=== PATIENT | male | born 1955 | race Caucasian/White ===

== ENCOUNTER 2018-04-13 18:06 | Inpatient (IN) | payer MEDICAID ==
[~2018-04-13] VITALS: Ht 165.1 cm; Wt 90.5 kg
[~2018-04-13 18:06] MED LIST: AMLO5TAB16 PO; FOLI1TAB16 PO; LEVO50TA8 PO; METO25TA6 PO; OMEP20TA23 PO; ONDA4TAB59 PO; THI100T PO
[2018-04-13] MEDS ORDERED: pantoprazole IV 80 MG in normal saline 100ml IV soln 100 ML IV ONE (18:30)
[2018-04-13] MEDS ORDERED: ondansetron/PF 4mg/2ml inj IV ONE (18:30)
[2018-04-13] MEDS ORDERED: normal saline 1000ML IV soln IV ONE (18:30)
[2018-04-13] MEDS ORDERED: pantoprazole 40 MG vial IV ONE (18:35)
[2018-04-13 18:55] LABS: BASOPHILS % (AUTO) 0.3 % (0-1); EOSINOPHILS # (AUTO) 0.2 X10'3 (0-0.9); EOSINOPHILS % (AUTO) 1.9 % (0-6); HEMATOCRIT 22.3 % (42.0-52.0); HEMOGLOBIN 7.8 g/dl (14.0-17.9); LYMPHOCYTES # (AUTO) 3.4 X10'3 (1.1-4.8); LYMPHOCYTES % (AUTO) 33.3 % (21-51); MEAN CORPUSCULAR HGB CONC 34.8 % (33.0-36.5); MEAN CORPUSCULAR VOLUME 100.6 FL (78-98); MEAN PLATELET VOLUME 6.1 FL (7.4-10.4); MONOCYTES # (AUTO) 0.3 X10'3 (0-0.9); MONOCYTES % (AUTO) 3.2 % (2-12); NEUTROPHILS # (AUTO) 6.2 X10'3 (1.8-7.7); NEUTROPHILS % (AUTO) 61.3 % (42-75); PLATELET COUNT 274 X10'3 (140-440); RED BLOOD COUNT 2.22 X10'6 (4.70-6.10); RED CELL DISTRIBUTION WIDTH 15.1 % (11.5-14.5); WHITE BLOOD COUNT 10.2 X10'3 (4.5-11.0)
[2018-04-13 19:05] LABS: INR 1.3 INR; PARTIAL THROMBOPLASTIN TIME 23 SECONDS (22-32); PROTHROMBIN TIME 12.9 SECONDS (9.0-12.0)
[2018-04-13 19:09] LABS: ALANINE AMINOTRANSFERASE 47 U/L (12-78); ALBUMIN 3.8 G/DL (3.4-5.0); ALBUMIN/GLOBULIN RATIO 0.8 (1.1-1.5); ALKALINE PHOSPHATASE 92 IU/L (46-116); ANION GAP 14 (8-16); ASPARTATE AMINO TRANSFERASE 155 U/L (10-37); BILIRUBIN,TOTAL 0.5 MG/DL (0.1-1.0); BLOOD UREA NITROGEN 63 MG/DL (7-18); BUN/CREATININE RATIO 19.2 (5.4-32.0); CALCIUM 9.1 MG/DL (8.5-10.1); CHLORIDE 88 MMOL/L (99-107); CREATININE 3.28 MG/DL (0.60-1.10); GLUCOSE 101 MG/DL (70-104); LIPASE 514 U/L (73-393); POTASSIUM 3.1 MMOL/L (3.5-5.1); SODIUM 128 MMOL/L (135-145); TOTAL CARBON DIOXIDE 26.5 MMOL/L (24-32); TOTAL PROTEIN 8.3 G/DL (6.4-8.2); eGFR 19 ML/MIN
[2018-04-13] MEDS ORDERED: normal saline 1000ML IV soln IVB ONE (19:55)
[2018-04-13 20:15] LABS: ETHANOL < 0.010 GM/DL (0.0-0.010)
[2018-04-13] MEDS ORDERED: magnesium hydroxide 30ml (MOM) UD suspension PO PRN (20:20)
[2018-04-13] MEDS ORDERED: morphine 4 MG/ML inj SYRINge IV PRN ×2 (20:20)
[2018-04-13] MEDS ORDERED: ondansetron/PF 4mg/2ml inj IV PRN (20:20)
[2018-04-13] MEDS ORDERED: mag hydrox/Alum hydrox/simeth 30ml oral suspension PO PRN (20:20)
[2018-04-13] MEDS ORDERED: acetaminophen 325mg tablet PO PRN ×2 (20:20)
[2018-04-13 20:28] LABS: MAGNESIUM 1.6 MG/DL (1.5-2.4)
[2018-04-13] MEDS: potassium 10mEq/100ml NS w/LIDOcaine (10mg/bag) IV SCH ×2 (20:33→20:55)
[2018-04-13] MEDS ORDERED: thiamine inj. 100 MG in normal saline 100ml IV soln 100 ML IV ONE (20:35)
[2018-04-13] MEDS ORDERED: potassium Cl 20 mEq SR tablet PO PRN ×2 (20:35)
[2018-04-13] MEDS ORDERED: LORazepam 1 MG tablet PO PRN (20:35)
[2018-04-13] MEDS ORDERED: LORazepam 2 mg/ml vial IV PRN (20:35)
[2018-04-13] MEDS ORDERED: potassium Cl 40MEQ/NS 500ml 500 ML IV PRN ×2 (20:35)
[2018-04-13 22:06] VITALS: BP 111/73
[2018-04-13 22:30] VITALS: BP 112/73
[2018-04-13 23:30] VITALS: BP 120/81
[2018-04-14] VITALS (29 sets, daily range): BP systolic 81–125; BP diastolic 50–81
[2018-04-14] MEDS: normal saline 1000ml 1,000 ML IV SCH ×4 (00:13→18:06)
[2018-04-14 02:26] LABS: BASOPHILS # (AUTO) 0.1 X10'3 (0-0.2); BASOPHILS % (AUTO) 0.7 % (0-1); EOSINOPHILS # (AUTO) 0.2 X10'3 (0-0.9); EOSINOPHILS % (AUTO) 2.1 % (0-6); LYMPHOCYTES # (AUTO) 2.6 X10'3 (1.1-4.8); LYMPHOCYTES % (AUTO) 28.8 % (21-51); MEAN CORPUSCULAR HEMOGLOBIN 33.3 PG (27.0-31.0); MEAN CORPUSCULAR HGB CONC 33.9 % (33.0-36.5); MEAN CORPUSCULAR VOLUME 98.3 FL (78-98); MEAN PLATELET VOLUME 6.3 FL (7.4-10.4); MONOCYTES # (AUTO) 0.4 X10'3 (0-0.9); NEUTROPHILS # (AUTO) 5.7 X10'3 (1.8-7.7); NEUTROPHILS % (AUTO) 64.4 % (42-75); PLATELET COUNT 202 X10'3 (140-440); RED BLOOD COUNT 2.12 X10'6 (4.70-6.10); RED CELL DISTRIBUTION WIDTH 16.2 % (11.5-14.5); WHITE BLOOD COUNT 8.9 X10'3 (4.5-11.0)
[2018-04-14 02:39] LABS: HEMATOCRIT 20.8 % (42.0-52.0)
[2018-04-14 02:40] LABS: ALBUMIN 3.2 G/DL (3.4-5.0); ANION GAP 11 (8-16); BLOOD UREA NITROGEN 68 MG/DL (7-18); BUN/CREATININE RATIO 25.6 (5.4-32.0); CALCIUM 7.7 MG/DL (8.5-10.1); CHLORIDE 96 MMOL/L (99-107); CREATININE 2.66 MG/DL (0.60-1.10); GLUCOSE 81 MG/DL (70-104); LIPASE 401 U/L (73-393); MAGNESIUM 1.3 MG/DL (1.5-2.4); PHOSPHORUS 3.2 MG/DL (2.3-4.5); POTASSIUM 3.7 MMOL/L (3.5-5.1); SODIUM 131 MMOL/L (135-145); TOTAL CARBON DIOXIDE 23.9 MMOL/L (24-32); eGFR 25 ML/MIN
[2018-04-14 08:11] LABS: HEMOGLOBIN 7.4 g/dl (14.0-17.9); MEAN CORPUSCULAR HEMOGLOBIN 33.8 PG (27.0-31.0); MEAN CORPUSCULAR HGB CONC 34.6 % (33.0-36.5); MEAN CORPUSCULAR VOLUME 97.7 FL (78-98); MEAN PLATELET VOLUME 6.6 FL (7.4-10.4); PLATELET COUNT 179 X10'3 (140-440); RED BLOOD COUNT 2.18 X10'6 (4.70-6.10); RED CELL DISTRIBUTION WIDTH 16.1 % (11.5-14.5)
[2018-04-14 08:15] LABS: HEMATOCRIT 21.3 % (42.0-52.0)
[2018-04-14] MEDS ORDERED: pantoprazole 40 MG vial IV SCH (09:30)
[2018-04-14] MEDS: folic acid 1mg tablet PO SCH (10:02)
[2018-04-14] MEDS: multivitamins, therapeutics tablet PO SCH (10:02)
[2018-04-14] MEDS: thiamine 100mg tablet PO SCH (10:02)
[2018-04-14 10:38] LABS: CLARITY,URINE CLEAR (Clear); COLOR,URINE YELLOW (Yellow); GLUCOSE, URINE NEGATIVE (Neg); KETONES,URINE NEGATIVE (Neg); LEUKOCYTE ESTERASE ,URINE NEGATIVE (Neg); NITRITES, URINE NEGATIVE (Neg); OCCULT BLOOD,URINE SMALL (Neg); PROTEIN,URINE NEGATIVE (Neg); UA COLLECTION TYPE NON-SPECIFIED; UROBILINOGEN,URINE 0.2 E.U/dL (0.2-1.0)
[2018-04-14 10:46] LABS: WBC,URINE 0-4 /HPF (0-4)
[2018-04-14 10:48] LABS: BACTERIA,URINE NONE SEEN /HPF (Neg); RBC,URINE NONE SEEN /HPF (0-2); SQUAMOUS EPITHELIAL CELL,UR NONE SEEN /LPF (FEW)
[2018-04-14] MEDS: levoTHYROXINE sod inj. 100mcg/5 ml vial IV SCH (10:50)
[2018-04-14 10:54] LABS: OCCULT BLOOD STOOL POSITIVE (Neg)
[2018-04-14 13:27] LABS: MEAN CORPUSCULAR HEMOGLOBIN 33.3 PG (27.0-31.0); MEAN CORPUSCULAR HGB CONC 34.6 % (33.0-36.5); MEAN CORPUSCULAR VOLUME 96.2 FL (78-98); MEAN PLATELET VOLUME 6.3 FL (7.4-10.4); PLATELET COUNT 171 X10'3 (140-440); RED BLOOD COUNT 1.93 X10'6 (4.70-6.10); RED CELL DISTRIBUTION WIDTH 16.4 % (11.5-14.5); WHITE BLOOD COUNT 7.2 X10'3 (4.5-11.0)
[2018-04-14 13:32] LABS: HEMATOCRIT 18.6 % (42.0-52.0); HEMOGLOBIN 6.4 g/dl (14.0-17.9)
[2018-04-14] MEDS ORDERED: MIDAZolam 5mg/5ml vial ONE (14:24)
[2018-04-14] MEDS ORDERED: LIDOcaine Viscous 15ml cup ONE (14:24)
[2018-04-14] MEDS ORDERED: fentaNYL/PF 50MCG/1 ML 2ML syringe ONE (14:24)
[2018-04-14 19:26] LABS: HEMATOCRIT 22.7 % (42.0-52.0); HEMOGLOBIN 7.7 g/dl (14.0-17.9); MEAN CORPUSCULAR HEMOGLOBIN 32.5 PG (27.0-31.0); MEAN CORPUSCULAR HGB CONC 33.9 % (33.0-36.5); MEAN CORPUSCULAR VOLUME 95.8 FL (78-98); MEAN PLATELET VOLUME 6.4 FL (7.4-10.4); PLATELET COUNT 155 X10'3 (140-440); RED BLOOD COUNT 2.37 X10'6 (4.70-6.10); RED CELL DISTRIBUTION WIDTH 17.8 % (11.5-14.5); WHITE BLOOD COUNT 8.9 X10'3 (4.5-11.0)
[2018-04-14] MEDS: pantoprazole 40 MG vial IV SCH (22:22)
[2018-04-15 03:00] VITALS: BP 108/72
[2018-04-15 03:29] LABS: BASOPHILS % (AUTO) 0.4 % (0-1); EOSINOPHILS # (AUTO) 0.3 X10'3 (0-0.9); EOSINOPHILS % (AUTO) 3.8 % (0-6); HEMATOCRIT 23.3 % (42.0-52.0); HEMOGLOBIN 8.1 g/dl (14.0-17.9); LYMPHOCYTES # (AUTO) 2.3 X10'3 (1.1-4.8); LYMPHOCYTES % (AUTO) 32.3 % (21-51); MEAN CORPUSCULAR HEMOGLOBIN 33.3 PG (27.0-31.0); MEAN CORPUSCULAR HGB CONC 34.9 % (33.0-36.5); MEAN CORPUSCULAR VOLUME 95.4 FL (78-98); MEAN PLATELET VOLUME 6.1 FL (7.4-10.4); MONOCYTES # (AUTO) 0.2 X10'3 (0-0.9); MONOCYTES % (AUTO) 3.2 % (2-12); NEUTROPHILS # (AUTO) 4.3 X10'3 (1.8-7.7); NEUTROPHILS % (AUTO) 60.3 % (42-75); PLATELET COUNT 153 X10'3 (140-440); RED BLOOD COUNT 2.44 X10'6 (4.70-6.10); RED CELL DISTRIBUTION WIDTH 17.7 % (11.5-14.5); WHITE BLOOD COUNT 7.2 X10'3 (4.5-11.0)
[2018-04-15 03:41] LABS: ALBUMIN 2.9 G/DL (3.4-5.0); ANION GAP 8 (8-16); BLOOD UREA NITROGEN 59 MG/DL (7-18); BUN/CREATININE RATIO 29.2 (5.4-32.0); CALCIUM 7.7 MG/DL (8.5-10.1); CHLORIDE 103 MMOL/L (99-107); CREATININE 2.02 MG/DL (0.60-1.10); GLUCOSE 92 MG/DL (70-104); LIPASE 575 U/L (73-393); MAGNESIUM 1.3 MG/DL (1.5-2.4); PHOSPHORUS 2.5 MG/DL (2.3-4.5); POTASSIUM 3.4 MMOL/L (3.5-5.1); SODIUM 134 MMOL/L (135-145); TOTAL CARBON DIOXIDE 22.8 MMOL/L (24-32); eGFR 34 ML/MIN
[2018-04-15] MEDS: normal saline 1000ml 1,000 ML IV SCH ×3 (04:17→20:17)
[2018-04-15 06:00] VITALS: BP 114/78
[2018-04-15] MEDS: pantoprazole 40 MG vial IV SCH ×2 (08:29→19:58)
[2018-04-15] MEDS: thiamine 100mg tablet PO SCH (08:30)
[2018-04-15] MEDS: levoTHYROXINE sod inj. 100mcg/5 ml vial IV SCH (08:30)
[2018-04-15] MEDS: folic acid 1mg tablet PO SCH (08:31)
[2018-04-15] MEDS: multivitamins, therapeutics tablet PO SCH (08:31)
[2018-04-15 08:32] LABS: HEMATOCRIT 24.4 % (42.0-52.0); HEMOGLOBIN 8.5 g/dl (14.0-17.9); MEAN CORPUSCULAR HEMOGLOBIN 33.3 PG (27.0-31.0); MEAN CORPUSCULAR HGB CONC 34.7 % (33.0-36.5); MEAN CORPUSCULAR VOLUME 95.9 FL (78-98); MEAN PLATELET VOLUME 6.5 FL (7.4-10.4); PLATELET COUNT 162 X10'3 (140-440); RED BLOOD COUNT 2.54 X10'6 (4.70-6.10); RED CELL DISTRIBUTION WIDTH 17.3 % (11.5-14.5); WHITE BLOOD COUNT 7.2 X10'3 (4.5-11.0)
[2018-04-15] MEDS ORDERED: magnesium 4gm in 100ml NS 100 ML IV ONE (10:00)
[2018-04-15 11:00] VITALS: BP 108/78
[2018-04-15 13:32] LABS: HEMATOCRIT 23.4 % (42.0-52.0); HEMOGLOBIN 8.1 g/dl (14.0-17.9); MEAN CORPUSCULAR HEMOGLOBIN 33.1 PG (27.0-31.0); MEAN CORPUSCULAR HGB CONC 34.7 % (33.0-36.5); MEAN CORPUSCULAR VOLUME 95.3 FL (78-98); MEAN PLATELET VOLUME 6.2 FL (7.4-10.4); PLATELET COUNT 160 X10'3 (140-440); RED BLOOD COUNT 2.46 X10'6 (4.70-6.10); RED CELL DISTRIBUTION WIDTH 17.4 % (11.5-14.5); WHITE BLOOD COUNT 7.5 X10'3 (4.5-11.0)
[2018-04-15 15:00] VITALS: BP 137/86
[2018-04-15 19:00] VITALS: BP 121/85
[2018-04-15 19:47] LABS: HEMATOCRIT 22.8 % (42.0-52.0); HEMOGLOBIN 7.8 g/dl (14.0-17.9); MEAN CORPUSCULAR HEMOGLOBIN 33.2 PG (27.0-31.0); MEAN CORPUSCULAR HGB CONC 34.3 % (33.0-36.5); MEAN CORPUSCULAR VOLUME 96.8 FL (78-98); MEAN PLATELET VOLUME 6.3 FL (7.4-10.4); PLATELET COUNT 155 X10'3 (140-440); RED BLOOD COUNT 2.35 X10'6 (4.70-6.10); RED CELL DISTRIBUTION WIDTH 17.2 % (11.5-14.5); WHITE BLOOD COUNT 6.9 X10'3 (4.5-11.0)
[2018-04-15] MEDS ORDERED: pantoprazole 40mg Tablet.DR PO SCH (20:00)
[2018-04-15 23:00] VITALS: BP 118/80
[2018-04-16] MEDS: normal saline 1000ml 1,000 ML IV SCH ×3 (01:14→20:17)
[2018-04-16 03:00] VITALS: BP 121/82
[2018-04-16 06:00] VITALS: BP 126/89
[2018-04-16] MEDS: folic acid 1mg tablet PO SCH (07:37)
[2018-04-16] MEDS: multivitamins, therapeutics tablet PO SCH (07:37)
[2018-04-16] MEDS: thiamine 100mg tablet PO SCH (07:37)
[2018-04-16] MEDS: pantoprazole 40 MG vial IV SCH ×2 (07:38→20:51)
[2018-04-16] MEDS: levoTHYROXINE sod inj. 100mcg/5 ml vial IV SCH (07:40)
[2018-04-16] MEDS ORDERED: phytonadione inj. 10 MG in normal saline 100ml IV soln 99 ML IV ONE (08:45)
[2018-04-16 10:54] LABS: HEMATOCRIT 23.8 % (42.0-52.0); HEMOGLOBIN 8.2 g/dl (14.0-17.9); MEAN CORPUSCULAR HEMOGLOBIN 33.2 PG (27.0-31.0); MEAN CORPUSCULAR HGB CONC 34.5 % (33.0-36.5); MEAN CORPUSCULAR VOLUME 96.1 FL (78-98); PLATELET COUNT 170 X10'3 (140-440); RED BLOOD COUNT 2.47 X10'6 (4.70-6.10); RED CELL DISTRIBUTION WIDTH 17.5 % (11.5-14.5); WHITE BLOOD COUNT 6.5 X10'3 (4.5-11.0)
[2018-04-16 11:00] VITALS: BP 136/95
[2018-04-16 11:07] LABS: ANION GAP 6 (8-16); BLOOD UREA NITROGEN 26 MG/DL (7-18); BUN/CREATININE RATIO 15.9 (5.4-32.0); CALCIUM 7.6 MG/DL (8.5-10.1); CHLORIDE 102 MMOL/L (99-107); CREATININE 1.64 MG/DL (0.60-1.10); GLUCOSE 84 MG/DL (70-104); LIPASE 539 U/L (73-393); MAGNESIUM 1.7 MG/DL (1.5-2.4); PHOSPHORUS 1.9 MG/DL (2.3-4.5); POTASSIUM 3.4 MMOL/L (3.5-5.1); SODIUM 132 MMOL/L (135-145); TOTAL CARBON DIOXIDE 23.6 MMOL/L (24-32); eGFR 43 ML/MIN
[2018-04-16] MEDS ORDERED: LIDOcaine 1% 30ml vial 5 ML in potassium Cl 40MEQ/NS 500ml 500 ML IV ONE (14:05)
[2018-04-16 15:00] VITALS: BP 144/96
[2018-04-16] MEDS: ceFAZolin 1GM/D5W- ADD-VANTAGE 50 ML IV SCH ×2 (15:10→23:28)
[2018-04-16 19:00] VITALS: BP 132/87
[2018-04-16 20:20] LABS: HEMATOCRIT 24.1 % (42.0-52.0); HEMOGLOBIN 8.3 g/dl (14.0-17.9); MEAN CORPUSCULAR HEMOGLOBIN 33.5 PG (27.0-31.0); MEAN CORPUSCULAR HGB CONC 34.4 % (33.0-36.5); MEAN CORPUSCULAR VOLUME 97.3 FL (78-98); MEAN PLATELET VOLUME 6.2 FL (7.4-10.4); PLATELET COUNT 176 X10'3 (140-440); RED BLOOD COUNT 2.47 X10'6 (4.70-6.10); RED CELL DISTRIBUTION WIDTH 17.3 % (11.5-14.5); WHITE BLOOD COUNT 6.9 X10'3 (4.5-11.0)
[2018-04-16] MEDS: clotrimazole topical cream 15gm tube TP SCH (20:59)
[2018-04-16 23:00] VITALS: BP 126/86
[2018-04-17 03:00] VITALS: BP 116/80
[2018-04-17] MEDS: normal saline 1000ml 1,000 ML IV SCH ×3 (03:08→20:17)
[2018-04-17 06:40] LABS: BASOPHILS # (AUTO) 0.1 X10'3 (0-0.2); BASOPHILS % (AUTO) 1.6 % (0-1); EOSINOPHILS # (AUTO) 0.3 X10'3 (0-0.9); EOSINOPHILS % (AUTO) 5.1 % (0-6); HEMATOCRIT 25.4 % (42.0-52.0); HEMOGLOBIN 8.7 g/dl (14.0-17.9); LYMPHOCYTES # (AUTO) 1.8 X10'3 (1.1-4.8); LYMPHOCYTES % (AUTO) 30.6 % (21-51); MEAN CORPUSCULAR HEMOGLOBIN 33.2 PG (27.0-31.0); MEAN CORPUSCULAR HGB CONC 34.3 % (33.0-36.5); MEAN CORPUSCULAR VOLUME 96.9 FL (78-98); MEAN PLATELET VOLUME 6.3 FL (7.4-10.4); MONOCYTES # (AUTO) 0.2 X10'3 (0-0.9); MONOCYTES % (AUTO) 4.2 % (2-12); NEUTROPHILS # (AUTO) 3.4 X10'3 (1.8-7.7); NEUTROPHILS % (AUTO) 58.5 % (42-75); PLATELET COUNT 182 X10'3 (140-440); RED BLOOD COUNT 2.62 X10'6 (4.70-6.10); RED CELL DISTRIBUTION WIDTH 17.3 % (11.5-14.5); WHITE BLOOD COUNT 5.7 X10'3 (4.5-11.0)
[2018-04-17 07:00] VITALS: BP 135/86
[2018-04-17 07:03] LABS: ANION GAP 8 (8-16); BLOOD UREA NITROGEN 14 MG/DL (7-18); BUN/CREATININE RATIO 9.8 (5.4-32.0); CHLORIDE 100 MMOL/L (99-107); CREATININE 1.43 MG/DL (0.60-1.10); GLUCOSE 84 MG/DL (70-104); POTASSIUM 3.7 MMOL/L (3.5-5.1); SODIUM 130 MMOL/L (135-145); TOTAL CARBON DIOXIDE 21.9 MMOL/L (24-32)
[2018-04-17 07:04] LABS: ALBUMIN 2.8 G/DL (3.4-5.0); CALCIUM 7.5 MG/DL (8.5-10.1); LIPASE 382 U/L (73-393); MAGNESIUM 1.3 MG/DL (1.5-2.4); PHOSPHORUS 2.3 MG/DL (2.3-4.5); eGFR 50 ML/MIN
[2018-04-17] MEDS: ceFAZolin 1GM/D5W- ADD-VANTAGE 50 ML IV SCH ×3 (07:29→23:49)
[2018-04-17] MEDS: folic acid 1mg tablet PO SCH (07:29)
[2018-04-17] MEDS: pantoprazole 40 MG vial IV SCH (07:29)
[2018-04-17] MEDS: multivitamins, therapeutics tablet PO SCH (07:29)
[2018-04-17] MEDS: thiamine 100mg tablet PO SCH (07:29)
[2018-04-17] MEDS: clotrimazole topical cream 15gm tube TP SCH ×2 (07:39→23:50)
[2018-04-17] MEDS: levoTHYROXINE sod inj. 100mcg/5 ml vial IV SCH (10:55)
[2018-04-17 12:00] VITALS: BP 136/90
[2018-04-17] MEDS ORDERED: magnesium 4gm in 100ml NS 100 ML IV ONE (12:55)
[2018-04-17 16:00] VITALS: BP 140/87
[2018-04-17 19:00] VITALS: BP 135/90
[2018-04-17 23:00] VITALS: BP 141/94
[2018-04-18] MEDS: normal saline 1000ml 1,000 ML IV SCH (00:20)
[2018-04-18 03:00] VITALS: BP 146/96
[2018-04-18 05:54] LABS: BASOPHILS % (AUTO) 0.7 % (0-1); EOSINOPHILS # (AUTO) 0.3 X10'3 (0-0.9); EOSINOPHILS % (AUTO) 5.7 % (0-6); HEMATOCRIT 24.1 % (42.0-52.0); HEMOGLOBIN 8.4 g/dl (14.0-17.9); LYMPHOCYTES # (AUTO) 1.1 X10'3 (1.1-4.8); LYMPHOCYTES % (AUTO) 24.9 % (21-51); MEAN CORPUSCULAR HEMOGLOBIN 33.5 PG (27.0-31.0); MEAN CORPUSCULAR HGB CONC 34.7 % (33.0-36.5); MEAN CORPUSCULAR VOLUME 96.5 FL (78-98); MEAN PLATELET VOLUME 5.8 FL (7.4-10.4); MONOCYTES # (AUTO) 0.3 X10'3 (0-0.9); MONOCYTES % (AUTO) 5.8 % (2-12); NEUTROPHILS # (AUTO) 2.9 X10'3 (1.8-7.7); NEUTROPHILS % (AUTO) 62.9 % (42-75); PLATELET COUNT 210 X10'3 (140-440); RED CELL DISTRIBUTION WIDTH 16.8 % (11.5-14.5); WHITE BLOOD COUNT 4.6 X10'3 (4.5-11.0)
[2018-04-18 06:43] LABS: ALBUMIN 2.8 G/DL (3.4-5.0); ANION GAP 9 (8-16); BLOOD UREA NITROGEN 7 MG/DL (7-18); BUN/CREATININE RATIO 5.3 (5.4-32.0); CALCIUM 7.7 MG/DL (8.5-10.1); CHLORIDE 99 MMOL/L (99-107); CREATININE 1.32 MG/DL (0.60-1.10); GLUCOSE 92 MG/DL (70-104); LIPASE 314 U/L (73-393); MAGNESIUM 1.7 MG/DL (1.5-2.4); PHOSPHORUS 2.3 MG/DL (2.3-4.5); POTASSIUM 3.5 MMOL/L (3.5-5.1); SODIUM 130 MMOL/L (135-145); TOTAL CARBON DIOXIDE 22.3 MMOL/L (24-32); eGFR 55 ML/MIN
[2018-04-18 07:00] VITALS: BP 139/101
[2018-04-18] MEDS: levoTHYROXINE sod inj. 100mcg/5 ml vial IV SCH (07:15)
[2018-04-18] MEDS: folic acid 1mg tablet PO SCH (07:15)
[2018-04-18] MEDS: thiamine 100mg tablet PO SCH (07:15)
[2018-04-18] MEDS: ceFAZolin 1GM/D5W- ADD-VANTAGE 50 ML IV SCH (07:15)
[2018-04-18] MEDS: multivitamins, therapeutics tablet PO SCH (07:15)
[2018-04-18] MEDS: clotrimazole topical cream 15gm tube TP SCH (08:00)
[2018-04-18] MEDS ORDERED: CEPH250T PO (09:31)
[2018-04-18] MEDS ORDERED: PANT-47 PO (09:31)
[2018-04-18] MEDS ORDERED: CLOT30CR TP (09:31)
[2018-04-18 11:00] VITALS: BP 149/93
[2018-04-18 15:00] VITALS: BP 119/78
== END 2018-04-18 15:20 | disposition home or self-care (01) | DRG 282 ==
LOC: ER 18:07 → ED HOLD 20:17 → EDBEDREQ 20:27 → PCU 3S 20:56
PROVIDERS: ADMIT Internal Medicine; ATTEND Internal Medicine
PROC: 30233N1 Transfusion of Nonautologous Red Blood Cells into Peripheral Vein, Percutaneous Approach (ICD-10-PCS; 2018-04-13)
PROC: 0DJ08ZZ Inspection of Upper Intestinal Tract, Via Natural or Artificial Opening Endoscopic (ICD-10-PCS; principal; 2018-04-14)
PROC: 30233N1 Transfusion of Nonautologous Red Blood Cells into Peripheral Vein, Percutaneous Approach (ICD-10-PCS; 2018-04-14)
DX: K85.90 Acute pancreatitis without necrosis or infection, unspecified (principal); N17.9 Acute kidney failure, unspecified; K22.6 Gastro-esophageal laceration-hemorrhage syndrome; I95.89 Other hypotension; K21.0 Gastro-esophageal reflux disease with esophagitis; N18.9 Chronic kidney disease, unspecified; F10.10 Alcohol abuse, uncomplicated; E86.0 Dehydration; B18.2 Chronic viral hepatitis C; D64.9 Anemia, unspecified; E87.6 Hypokalemia; E03.9 Hypothyroidism, unspecified; F17.210 Nicotine dependence, cigarettes, uncomplicated; I12.9 Hypertensive chronic kidney disease with stage 1 through stage 4 chronic kidney disease, or unspecified chronic kidney disease; K29.80 Duodenitis without bleeding; Z59.0 Homelessness; Z91.19 Patient's noncompliance with other medical treatment and regimen; Z79.899 Other long term (current) drug therapy; Z88.2 Allergy status to sulfonamides; Z82.3 Family history of stroke; Z82.49 Family history of ischemic heart disease and other diseases of the circulatory system
CPT/HCPCS: 36415; 71045; 80048; 80053; 80320; 81001; 82272; 83690; 83735; 84100; 84439; 84443; 84484; 85025; 85027; 85610; 85730; 86885; 86900; 86901; 86920; 87070; 93005; 96361; 96374; 96375; 97162; 99285; A4620; A4649; A6209; A6212; A6250; A6255; A6446; A6449; A9270; C9113; G0500; J0690; J2250; J2270; J2405; J3010; J3411; J3430; J3475; J3480; J3490; J7030; P9016

== ENCOUNTER 2018-10-03 16:54 | Inpatient (IN) | payer MEDICAID ==
[~2018-10-03] VITALS: Ht 167.6 cm; Wt 77.2 kg
[~2018-10-03 16:54] MED LIST changes: +CEPH250T PO; +CLOT30CR TP; -OMEP20TA23 PO; +PANT-47 PO
[2018-10-03 18:29] LABS: BASOPHILS # (AUTO) 0.2 X10'3 (0-0.2); BASOPHILS % (AUTO) 1.2 % (0-1); EOSINOPHILS # (AUTO) 0.2 X10'3 (0-0.9); EOSINOPHILS % (AUTO) 1.5 % (0-6); HEMATOCRIT 34.9 % (42.0-52.0); HEMOGLOBIN 11.9 g/dl (14.0-17.9); LYMPHOCYTES # (AUTO) 2.5 X10'3 (1.1-4.8); LYMPHOCYTES % (AUTO) 16.4 % (21-51); MEAN CORPUSCULAR HEMOGLOBIN 34.4 PG (27.0-31.0); MEAN CORPUSCULAR HGB CONC 34.1 % (33.0-36.5); MEAN CORPUSCULAR VOLUME 100.9 FL (78-98); MEAN PLATELET VOLUME 6.4 FL (7.4-10.4); MONOCYTES # (AUTO) 0.5 X10'3 (0-0.9); NEUTROPHILS # (AUTO) 11.9 X10'3 (1.8-7.7); NEUTROPHILS % (AUTO) 77.9 % (42-75); PLATELET COUNT 254 X10'3 (140-440); RED BLOOD COUNT 3.46 X10'6 (4.70-6.10); WHITE BLOOD COUNT 15.3 X10'3 (4.5-11.0)
[2018-10-03 18:54] LABS: ALANINE AMINOTRANSFERASE 35 U/L (12-78); ALBUMIN 4.1 G/DL (3.4-5.0); ALKALINE PHOSPHATASE 94 IU/L (46-116); ANION GAP 16 (8-16); ASPARTATE AMINO TRANSFERASE 68 U/L (10-37); BILIRUBIN,TOTAL 0.3 MG/DL (0.1-1.0); BLOOD UREA NITROGEN 27 MG/DL (7-18); BUN/CREATININE RATIO 16.3 (5.4-32.0); CALCIUM 8.5 MG/DL (8.5-10.1); CHLORIDE 95 MMOL/L (99-107); CREATININE 1.66 MG/DL (0.60-1.10); GLUCOSE 113 MG/DL (70-104); POTASSIUM 3.6 MMOL/L (3.5-5.1); SODIUM 132 MMOL/L (135-145); TOTAL CARBON DIOXIDE 21.1 MMOL/L (24-32); TOTAL PROTEIN 8.3 G/DL (6.4-8.2); eGFR 42 ML/MIN
[2018-10-03 19:05] LABS: INR 1.1 INR; PROTHROMBIN TIME 11.4 SECONDS (9.0-12.0)
[2018-10-03 19:12] LABS: AMYLASE 2249 U/L (25-115); LIPASE > 30000 U/L (73-393)
[2018-10-03] MEDS ORDERED: HYDROmorphone 1 mg/ml syringe IV ONE ×2 (19:30→21:20)
[2018-10-03] MEDS ORDERED: normal saline 1000ML IV soln IVB ONE (19:30)
[2018-10-03] MEDS ORDERED: LISI10TA4 PO (19:34)
[2018-10-03] MEDS ORDERED: OMEP-50 PO (19:34)
[2018-10-03] MEDS ORDERED: ondansetron/PF 4mg/2ml inj IV ONE (19:40)
[2018-10-03 19:46] LABS: ETHANOL < 0.010 GM/DL (0.0-0.010); MAGNESIUM 1.6 MG/DL (1.5-2.4)
--- NOTE | 2018-10-03 20:25 | NUR ---
US TECH AT BEDSIDE.
[2018-10-03 20:45] LABS: CLARITY,URINE CLEAR (Clear); COLOR,URINE YELLOW (Yellow); GLUCOSE, URINE NEGATIVE (Neg); KETONES,URINE NEGATIVE (Neg); LEUKOCYTE ESTERASE ,URINE NEGATIVE (Neg); NITRITES, URINE NEGATIVE (Neg); OCCULT BLOOD,URINE SMALL (Neg); PH,URINE 6.5 (4.8-8.0); PROTEIN,URINE TRACE mg/dl (Neg); UROBILINOGEN,URINE 0.2 E.U/dL (0.2-1.0)
[2018-10-03 20:49] LABS: UA COLLECTION TYPE VOIDED
[2018-10-03 20:50] LABS: BACTERIA,URINE FEW /HPF (Neg); RBC,URINE 0-2 /HPF (0-2); SQUAMOUS EPITHELIAL CELL,UR FEW /LPF (FEW); WBC,URINE 0-4 /HPF (0-4)
[2018-10-03] MEDS ORDERED: piperacillin/tazo 3.375gm/50ml 50 ML IV ONE (21:05)
[2018-10-03] MEDS ORDERED: ondansetron/PF 4mg/2ml inj IV PRN (21:35)
[2018-10-03] MEDS ORDERED: CADD PCA waste documentation MC PRN (21:35)
[2018-10-03] MEDS ORDERED: naloxone 0.4 mg/ml inj IV PRN (21:35)
[2018-10-03] MEDS: normal saline 1000ml 1,000 ML IV SCH (22:14)
[2018-10-03] MEDS: pantoprazole 40 MG vial IV SCH (22:14)
[2018-10-03] MEDS: enalaprilat dihydrate 2.5mg/2ml vial IV PRN (23:09)
--- NOTE | 2018-10-03 23:36 | NUR ---
CALLED REPORT TO RACHEL ON SURGICAL FLOOR.
[2018-10-04] VITALS (7 sets, daily range): BP systolic 129–201; BP diastolic 83–123
[2018-10-04] MEDS: normal saline 1000ml 1,000 ML IV SCH ×3 (00:06→19:56)
[2018-10-04] MEDS: HYDROmorphone/NS 1 mg/ml CADD 50 ML IV SCH ×13 (00:15→23:00)
[2018-10-04 06:08] LABS: ALANINE AMINOTRANSFERASE 32 U/L (12-78); ALBUMIN/GLOBULIN RATIO 0.9 (1.1-1.5); ALKALINE PHOSPHATASE 100 IU/L (46-116); ANION GAP 13 (8-16); ASPARTATE AMINO TRANSFERASE 52 U/L (10-37); BILIRUBIN,TOTAL 0.6 MG/DL (0.1-1.0); BLOOD UREA NITROGEN 22 MG/DL (7-18); BUN/CREATININE RATIO 15.1 (5.4-32.0); CALCIUM 8.2 MG/DL (8.5-10.1); CHLORIDE 96 MMOL/L (99-107); CREATININE 1.46 MG/DL (0.60-1.10); GLUCOSE 117 MG/DL (70-104); POTASSIUM 3.9 MMOL/L (3.5-5.1); SODIUM 133 MMOL/L (135-145); TOTAL CARBON DIOXIDE 24.4 MMOL/L (24-32); TOTAL PROTEIN 8.3 G/DL (6.4-8.2); eGFR 49 ML/MIN
[2018-10-04 06:11] LABS: BASOPHILS % (AUTO) 0.1 % (0-1); EOSINOPHILS % (AUTO) 0.2 % (0-6); HEMATOCRIT 39.2 % (42.0-52.0); LYMPHOCYTES % (AUTO) 8.3 % (21-51); MEAN CORPUSCULAR HEMOGLOBIN 33.5 PG (27.0-31.0); MEAN CORPUSCULAR HGB CONC 33.1 % (33.0-36.5); MEAN CORPUSCULAR VOLUME 101.3 FL (78-98); MEAN PLATELET VOLUME 6.5 FL (7.4-10.4); MONOCYTES # (AUTO) 0.4 X10'3 (0-0.9); MONOCYTES % (AUTO) 3.6 % (2-12); NEUTROPHILS # (AUTO) 10.2 X10'3 (1.8-7.7); NEUTROPHILS % (AUTO) 87.8 % (42-75); PLATELET COUNT 255 X10'3 (140-440); RED BLOOD COUNT 3.87 X10'6 (4.70-6.10); RED CELL DISTRIBUTION WIDTH 14.3 % (11.5-14.5); WHITE BLOOD COUNT 11.6 X10'3 (4.5-11.0)
--- NOTE | 2018-10-04 06:54 | NUR ---
Patient in room [facility]. I have received report from Eddy MEYER and had the opportunity to ask questions and assume patient care.
--- NOTE | 2018-10-04 07:02 | NUR ---
Problems reprioritized. Patient report given, questions answered & plan of care reviewed with Lizzette. Addendum: 10/04/18 at 0703 by Nicho Laurent RN Amended: Links added.
[2018-10-04] MEDS: enalaprilat dihydrate 2.5mg/2ml vial IV PRN (07:18)
[2018-10-04] MEDS: pantoprazole 40 MG vial IV SCH (07:18)
--- NOTE | 2018-10-04 07:23 | NUR ---
BP this am was reportedly high 201/123, heart rate 73. Patient complaining of lightheadedness and also abdominal pain 05/31. Instructed patient to use his Dilaudid CADD for pain management and Vasotec 2.5 mg IV given as indicated. Will reevaluate BP Addendum: 10/04/18 at 0852 by Fam Canales RN BP rechecked 186/117 post Vasotec. Pain level went down to 10. Dr. Julio notified via paging system regarding high BP
[2018-10-04] MEDS: levoTHYROXINE 175mcg tablet PO SCH (07:25)
--- NOTE | 2018-10-04 10:56 | NUR ---
Dr. Julio seen the patient. Patient verbalized to the doctor that he does not want any surgery. Also patient requesting to keep the Dilaudid CADD for pain management. Dr. Julio said to me not to worry about his BP and that we need to control his pain to control the BP
--- NOTE | 2018-10-04 18:26 | NUR ---
Problems reprioritized. Patient report given, questions answered & plan of care reviewed with Buffy MEYER.
--- NOTE | 2018-10-04 18:53 | NUR ---
Patient in room [facility]. I have received report from Fam MEYER and had the opportunity to ask questions and assume patient care.
[2018-10-04] MEDS ORDERED: enalaprilat dihydrate 2.5mg/2ml vial IV PRN (19:15)
[2018-10-05] MEDS: HYDROmorphone/NS 1 mg/ml CADD 50 ML IV SCH ×12 (01:00→23:00)
[2018-10-05] MEDS: normal saline 1000ml 1,000 ML IV SCH ×2 (05:12→15:38)
[2018-10-05 05:15] LABS: BASOPHILS % (AUTO) 0.4 % (0-1); EOSINOPHILS # (AUTO) 0.1 X10'3 (0-0.9); EOSINOPHILS % (AUTO) 0.8 % (0-6); HEMATOCRIT 33.9 % (42.0-52.0); HEMOGLOBIN 11.3 g/dl (14.0-17.9); LYMPHOCYTES # (AUTO) 1.1 X10'3 (1.1-4.8); LYMPHOCYTES % (AUTO) 8.9 % (21-51); MEAN CORPUSCULAR HEMOGLOBIN 34.1 PG (27.0-31.0); MEAN CORPUSCULAR HGB CONC 33.5 % (33.0-36.5); MEAN PLATELET VOLUME 6.4 FL (7.4-10.4); MONOCYTES # (AUTO) 0.7 X10'3 (0-0.9); MONOCYTES % (AUTO) 5.7 % (2-12); NEUTROPHILS # (AUTO) 10.2 X10'3 (1.8-7.7); NEUTROPHILS % (AUTO) 84.2 % (42-75); PLATELET COUNT 203 X10'3 (140-440); RED BLOOD COUNT 3.32 X10'6 (4.70-6.10); RED CELL DISTRIBUTION WIDTH 14.1 % (11.5-14.5); WHITE BLOOD COUNT 12.1 X10'3 (4.5-11.0)
[2018-10-05 05:47] LABS: ALANINE AMINOTRANSFERASE 27 U/L (12-78); ALBUMIN 3.4 G/DL (3.4-5.0); ALBUMIN/GLOBULIN RATIO 0.9 (1.1-1.5); ALKALINE PHOSPHATASE 80 IU/L (46-116); ANION GAP 11 (8-16); ASPARTATE AMINO TRANSFERASE 49 U/L (10-37); BILIRUBIN,TOTAL 0.8 MG/DL (0.1-1.0); BLOOD UREA NITROGEN 28 MG/DL (7-18); BUN/CREATININE RATIO 17.3 (5.4-32.0); CALCIUM 8.3 MG/DL (8.5-10.1); CHLORIDE 100 MMOL/L (99-107); CREATININE 1.62 MG/DL (0.60-1.10); GLUCOSE 80 MG/DL (70-104); POTASSIUM 4.2 MMOL/L (3.5-5.1); SODIUM 134 MMOL/L (135-145); TOTAL CARBON DIOXIDE 22.6 MMOL/L (24-32); TOTAL PROTEIN 7.4 G/DL (6.4-8.2); eGFR 44 ML/MIN
[2018-10-05 06:00] VITALS: BP 127/87
[2018-10-05 06:38] LABS: TOTAL CELLS COUNTED 100
[2018-10-05 06:39] LABS: PLATELET ESTIMATE NORMAL; TOXIC GRANULATION 1+
--- NOTE | 2018-10-05 06:49 | NUR ---
Problems reprioritized. Patient report given, questions answered & plan of care reviewed with Hanane MEYER.
--- NOTE | 2018-10-05 07:20 | NUR ---
Patient in room [facility]. I have received report from herve eisenberg and had the opportunity to ask questions and assume patient care.
[2018-10-05] MEDS: pantoprazole 40 MG vial IV SCH (08:37)
[2018-10-05] MEDS: levoTHYROXINE 175mcg tablet PO SCH (08:37)
[2018-10-05 11:00] VITALS: BP 150/88
[2018-10-05 11:43] LABS: LIPASE 3577 U/L (73-393)
--- NOTE | 2018-10-05 18:18 | NUR ---
Patient in room [facility]. I have received report from Hanane MEYER and had the opportunity to ask questions and assume patient care. Pt resting comfortably in bed watching tv. CADD pump set up, NS running @ 100, no signs of distress. Will continue to monitor.
--- NOTE | 2018-10-05 18:26 | NUR ---
Problems reprioritized. Patient report given, questions answered & plan of care reviewed with herve eisenberg.
[2018-10-05 20:00] VITALS: BP 137/82
[2018-10-06] VITALS (10 sets, daily range): BP systolic 144–174; BP diastolic 92–105
[2018-10-06] MEDS: HYDROmorphone/NS 1 mg/ml CADD 50 ML IV SCH ×12 (01:00→23:00)
[2018-10-06] MEDS: normal saline 1000ml 1,000 ML IV SCH ×3 (01:18→17:27)
[2018-10-06 05:05] LABS: BASOPHILS % (AUTO) 0.4 % (0-1); EOSINOPHILS # (AUTO) 0.2 X10'3 (0-0.9); EOSINOPHILS % (AUTO) 1.9 % (0-6); HEMATOCRIT 31.2 % (42.0-52.0); HEMOGLOBIN 10.5 g/dl (14.0-17.9); LYMPHOCYTES # (AUTO) 1.1 X10'3 (1.1-4.8); LYMPHOCYTES % (AUTO) 11.5 % (21-51); MEAN CORPUSCULAR HEMOGLOBIN 34.2 PG (27.0-31.0); MEAN CORPUSCULAR HGB CONC 33.7 % (33.0-36.5); MEAN CORPUSCULAR VOLUME 101.4 FL (78-98); MEAN PLATELET VOLUME 6.5 FL (7.4-10.4); MONOCYTES # (AUTO) 0.7 X10'3 (0-0.9); MONOCYTES % (AUTO) 7.1 % (2-12); NEUTROPHILS # (AUTO) 7.9 X10'3 (1.8-7.7); NEUTROPHILS % (AUTO) 79.1 % (42-75); PLATELET COUNT 190 X10'3 (140-440); RED BLOOD COUNT 3.07 X10'6 (4.70-6.10); RED CELL DISTRIBUTION WIDTH 14.7 % (11.5-14.5); WHITE BLOOD COUNT 9.9 X10'3 (4.5-11.0)
[2018-10-06 05:33] LABS: ALANINE AMINOTRANSFERASE 22 U/L (12-78); ALBUMIN 3.1 G/DL (3.4-5.0); ALBUMIN/GLOBULIN RATIO 0.8 (1.1-1.5); ALKALINE PHOSPHATASE 76 IU/L (46-116); ANION GAP 11 (8-16); ASPARTATE AMINO TRANSFERASE 41 U/L (10-37); BILIRUBIN,TOTAL 0.8 MG/DL (0.1-1.0); BLOOD UREA NITROGEN 26 MG/DL (7-18); BUN/CREATININE RATIO 15.8 (5.4-32.0); CALCIUM 8.2 MG/DL (8.5-10.1); CHLORIDE 102 MMOL/L (99-107); CREATININE 1.65 MG/DL (0.60-1.10); GLUCOSE 71 MG/DL (70-104); LIPASE 552 U/L (73-393); POTASSIUM 4.1 MMOL/L (3.5-5.1); SODIUM 135 MMOL/L (135-145); eGFR 43 ML/MIN
--- NOTE | 2018-10-06 06:21 | NUR ---
Problems reprioritized. Patient report given, questions answered & plan of care reviewed with Hanane MEYER.
--- NOTE | 2018-10-06 06:37 | NUR ---
Patient in room [facility]. I have received report from SKIP MEYER and had the opportunity to ask questions and assume patient care.
[2018-10-06] MEDS: levoTHYROXINE 175mcg tablet PO SCH (07:17)
[2018-10-06] MEDS: pantoprazole 40 MG vial IV SCH (07:17)
[2018-10-06] MEDS ORDERED: ceFAZolin 1000mg inj ONE ×2 (12:26→12:29)
[2018-10-06] MEDS ORDERED: BUPIVAcaine/PF 2.5mg/ml (0.25%) 10ml vial ONE (12:27)
--- NOTE | 2018-10-06 13:31 | NUR ---
TSH 92.2 B/P 163/102 Recovery , OR , and DR Ngo called. patient transported down to Recovery room 1340hrs.
[2018-10-06] MEDS ORDERED: dexamethasone sod phosphate 10mg/ml inj ONE (14:02)
[2018-10-06] MEDS ORDERED: sevoflurane 250ml liquid IH ONE (14:02)
[2018-10-06] MEDS ORDERED: propofol inj 20 ML IV ONE (14:05)
[2018-10-06] MEDS ORDERED: rocuronium 10mg/ml inj IV ONE (14:05)
[2018-10-06] MEDS ORDERED: fentaNYL/PF 50MCG/1 ML 2ML syringe ONE (14:05)
[2018-10-06] MEDS ORDERED: midazolam 2 mg/2 ml injection ONE (14:05)
[2018-10-06] MEDS ORDERED: ringers solution, lacted 1,000 ML IV SCH (14:57)
[2018-10-06] MEDS ORDERED: proCHLORperazine 10 MG/2 ml inj IV PRN (15:00)
[2018-10-06] MEDS ORDERED: labetalol 20mg/4ml (5mg/ml) syringe IV PRN (15:00)
[2018-10-06] MEDS ORDERED: ondansetron/PF 4mg/2ml inj IV PRN (15:00)
[2018-10-06] MEDS ORDERED: morphine 4 MG/ML inj SYRINge IV PRN ×2 (15:00)
[2018-10-06] MEDS ORDERED: meperidine/PF 25mg/ml syringe IV PRN ×3 (15:00)
[2018-10-06] MEDS ORDERED: ondansetron/PF 4mg/2ml inj ONE (15:24)
[2018-10-06] MEDS ORDERED: glycopyrrolate 0.2mg/ml inj ONE (15:24)
[2018-10-06] MEDS ORDERED: neostigmine methylsulfate 1 MG/ML 10ml vial ONE (15:24)
[2018-10-06] MEDS ORDERED: sugammadex 200mg/2ml injection IV ONE (15:35)
--- NOTE | 2018-10-06 15:42 | NUR ---
Received from OR via SURGICAL BED , accompanied by Anesthesiologist MARK and report given by Anesthesiolgist. PATIENT WITH VSS, DENIES PAIN. THREATENING TO PULL OUT NGT, EDUCATED, 3L NASAL CANNULA PLACE 2' NON COMPLIANCE WITH 02 MASK. 4 ABDOMINAL LAP SITES PRESENT AND ARE CDI. Addendum: 10/06/18 at 1606 by Kervin Paulson RN, RN Amended: Links added.
--- NOTE | 2018-10-06 16:22 | NUR ---
Report called to receiving nurse. Transferred via SURGICAL BED WITH NO Belongings . Special Issues communicated to receiving nurse JESUS MEYER. VSS. ASKING FOR URINAL AND TO REMOVED NG TUBE. REINSTRUCTED ON PURPOSE OF NG TUBE. PATIENT BED LOW, CALL LIGHT PRESENT, PLAN COORDINATOR IN HAND FOR PAIN MANAGEMENT AND DRESSINGS CDI. JAYDEN MCGUIRE PRESENT TO ASSIST IN SET UP. INSTRUCTED JESUS THAT PATIENT HAS ARRIVED. Addendum: 10/06/18 at 1634 by Kervin Paulson RN RN Amended: Links added.
--- NOTE | 2018-10-06 17:28 | NUR ---
Patient in room [facility]. I have received report from benita MEYER and had the opportunity to ask questions and assume patient care.patient appears stable on return to unit. NG in place draining brown thickish fluid. Staff having to repeatedly tell patient to not ug on NG, and to rst post op.
--- NOTE | 2018-10-06 18:30 | NUR ---
Patient in room [facility]. I have received report from Hanane MEYER and had the opportunity to ask questions and assume patient care.
--- NOTE | 2018-10-06 18:49 | NUR ---
Problems reprioritized. Patient report given, questions answered & plan of care reviewed with maribel MEYER.
[2018-10-07] VITALS (10 sets, daily range): BP systolic 146–188; BP diastolic 20–120
[2018-10-07] MEDS: HYDROmorphone/NS 1 mg/ml CADD 50 ML IV SCH ×8 (01:00→15:00)
[2018-10-07] MEDS: normal saline 1000ml 1,000 ML IV SCH ×3 (02:33→21:18)
[2018-10-07 04:39] LABS: BASOPHILS % (AUTO) 0 % (0-1); EOSINOPHILS % (AUTO) 0 % (0-6); HEMATOCRIT 24.6 % (42.0-52.0); HEMOGLOBIN 8.1 g/dl (14.0-17.9); LYMPHOCYTES # (AUTO) 0.7 X10'3 (1.1-4.8); LYMPHOCYTES % (AUTO) 7.5 % (21-51); MEAN CORPUSCULAR HEMOGLOBIN 33.9 PG (27.0-31.0); MEAN CORPUSCULAR HGB CONC 33.2 % (33.0-36.5); MEAN CORPUSCULAR VOLUME 102.3 FL (78-98); MEAN PLATELET VOLUME 6.7 FL (7.4-10.4); MONOCYTES # (AUTO) 0.3 X10'3 (0-0.9); MONOCYTES % (AUTO) 2.9 % (2-12); NEUTROPHILS # (AUTO) 7.9 X10'3 (1.8-7.7); NEUTROPHILS % (AUTO) 89.6 % (42-75); PLATELET COUNT 182 X10'3 (140-440); WHITE BLOOD COUNT 8.8 X10'3 (4.5-11.0)
[2018-10-07 04:57] LABS: ALANINE AMINOTRANSFERASE 25 U/L (12-78); ALBUMIN 2.8 G/DL (3.4-5.0); ALBUMIN/GLOBULIN RATIO 0.7 (1.1-1.5); ALKALINE PHOSPHATASE 79 IU/L (46-116); ANION GAP 13 (8-16); ASPARTATE AMINO TRANSFERASE 54 U/L (10-37); BILIRUBIN,TOTAL 0.7 MG/DL (0.1-1.0); BLOOD UREA NITROGEN 25 MG/DL (7-18); BUN/CREATININE RATIO 15.9 (5.4-32.0); CHLORIDE 105 MMOL/L (99-107); CREATININE 1.57 MG/DL (0.60-1.10); GLUCOSE 103 MG/DL (70-104); LIPASE 120 U/L (73-393); POTASSIUM 3.9 MMOL/L (3.5-5.1); SODIUM 136 MMOL/L (135-145); TOTAL PROTEIN 6.8 G/DL (6.4-8.2); eGFR 45 ML/MIN
--- NOTE | 2018-10-07 06:26 | NUR ---
Problems reprioritized. Patient report given, questions answered & plan of care reviewed with Rosemarie MEYER.
--- NOTE | 2018-10-07 06:30 | NUR ---
Patient in room [facility]. I have received report from Sofya MEYER and had the opportunity to ask questions and assume patient care. Patient in bed resting appears comfortable
[2018-10-07] MEDS: pantoprazole 40 MG vial IV SCH (07:51)
[2018-10-07] MEDS: levoTHYROXINE 175mcg tablet PO SCH (07:51)
--- NOTE | 2018-10-07 09:48 | NUR ---
I MESSAGED DR. BACA REGARDING PATIENT HIGH BLOOD PRESSURE OF 188/115 AND THAT IS AFTER 5 MG OF VASOTEC WHICH WAS ADMINISTERED AT 0751 FOR A BLOOD PRESSURE OF 172/100. I ALSO CALLED DR. PUTNAM. HE SAID TO REMOVE PATIENTS NG TUBE.
--- NOTE | 2018-10-07 10:12 | NUR ---
NG tube has been removed
[2018-10-07] MEDS ORDERED: amLODIPine 5mg tablet PO ONE (10:30)
[2018-10-07] MEDS: LORazepam 2 mg/ml vial IV PRN (11:33)
[2018-10-07] MEDS: hydrALAZINE 20mg/ml inj. IV PRN ×2 (13:50→21:17)
[2018-10-07] MEDS: heparin, porcine 5000 units/ml vial SQ SCH ×2 (16:38→23:51)
--- NOTE | 2018-10-07 16:45 | NUR ---
Initial: Pt admit with pancreatitis secondary to gallstones. notes pt is w/ alcoholic pancreatitis. Pt s/p laparoscopic cholecystectomy 10/06. Pt improving per MD note pt diet has been advanced to clear liquid w/ 100% intake first meal. LBM 10/03, however patient is passing flatus per MD note. Will continue to monitor. Rec. 1.Advance to Regular diet as medically tolerated 2.Monitor for ONS 3.Monitor for bowel care 4.Wt per rx Addendum: 10/07/18 at [address] Amended: Links added. Addendum: 10/07/18 at [address] I have reviewed and agree with note by Head Bookkeeper. Garima Lopez RD
--- NOTE | 2018-10-07 18:15 | NUR ---
Problems reprioritized. Patient report given, Sofya MEYER questions answered & plan of care reviewed with .
--- NOTE | 2018-10-07 18:30 | NUR ---
Patient in room [facility]. I have received report from Rosemarie MEYER and had the opportunity to ask questions and assume patient care. Pt sitting up in bed eating dinner, comfortable in no distress.
[2018-10-08] VITALS (13 sets, daily range): BP systolic 99–185; BP diastolic 64–126
[2018-10-08] MEDS: HYDROcodone/acetaminophen 10/325mg tab PO PRN ×2 (02:20→08:21)
[2018-10-08 05:00] LABS: BASOPHILS % (AUTO) 0.2 % (0-1); EOSINOPHILS # (AUTO) 0.1 X10'3 (0-0.9); EOSINOPHILS % (AUTO) 1.3 % (0-6); HEMATOCRIT 24.6 % (42.0-52.0); HEMOGLOBIN 8.4 g/dl (14.0-17.9); LYMPHOCYTES # (AUTO) 1.4 X10'3 (1.1-4.8); LYMPHOCYTES % (AUTO) 12.9 % (21-51); MEAN CORPUSCULAR HEMOGLOBIN 34.3 PG (27.0-31.0); MEAN CORPUSCULAR HGB CONC 33.9 % (33.0-36.5); MEAN CORPUSCULAR VOLUME 101.1 FL (78-98); MEAN PLATELET VOLUME 6.4 FL (7.4-10.4); MONOCYTES # (AUTO) 0.7 X10'3 (0-0.9); MONOCYTES % (AUTO) 6.2 % (2-12); NEUTROPHILS # (AUTO) 8.4 X10'3 (1.8-7.7); NEUTROPHILS % (AUTO) 79.4 % (42-75); PLATELET COUNT 197 X10'3 (140-440); RED BLOOD COUNT 2.44 X10'6 (4.70-6.10); RED CELL DISTRIBUTION WIDTH 14.8 % (11.5-14.5); WHITE BLOOD COUNT 10.6 X10'3 (4.5-11.0)
[2018-10-08 05:14] LABS: ALANINE AMINOTRANSFERASE 23 U/L (12-78); ALBUMIN 2.9 G/DL (3.4-5.0); ALBUMIN/GLOBULIN RATIO 0.7 (1.1-1.5); ALKALINE PHOSPHATASE 80 IU/L (46-116); ANION GAP 12 (8-16); ASPARTATE AMINO TRANSFERASE 38 U/L (10-37); BILIRUBIN,TOTAL 0.6 MG/DL (0.1-1.0); BLOOD UREA NITROGEN 21 MG/DL (7-18); BUN/CREATININE RATIO 15.3 (5.4-32.0); CHLORIDE 101 MMOL/L (99-107); CREATININE 1.37 MG/DL (0.60-1.10); GLUCOSE 94 MG/DL (70-104); LIPASE 173 U/L (73-393); POTASSIUM 3.3 MMOL/L (3.5-5.1); SODIUM 134 MMOL/L (135-145); TOTAL CARBON DIOXIDE 21.1 MMOL/L (24-32); TOTAL PROTEIN 6.9 G/DL (6.4-8.2); eGFR 53 ML/MIN
[2018-10-08] MEDS: normal saline 1000ml 1,000 ML IV SCH (06:35)
--- NOTE | 2018-10-08 06:38 | NUR ---
Problems reprioritized. Patient report given, questions answered & plan of care reviewed with Lavinia MEYER.
--- NOTE | 2018-10-08 06:40 | NUR ---
Patient in room [facility]. I have received report from MITCH Cowart and had the opportunity to ask questions and assume patient care.
[2018-10-08] MEDS ORDERED: amLODIPine 5mg tablet PO SCH (08:00)
[2018-10-08] MEDS: pantoprazole 40 MG vial IV SCH (08:12)
[2018-10-08] MEDS: levoTHYROXINE 175mcg tablet PO SCH (08:13)
[2018-10-08] MEDS: heparin, porcine 5000 units/ml vial SQ SCH ×2 (08:13→15:32)
[2018-10-08] MEDS ORDERED: potassium Cl 40MEQ/NS 500ml 500 ML IV PRN ×2 (10:10)
[2018-10-08] MEDS ORDERED: potassium Cl 20 mEq SR tablet PO PRN (10:10)
[2018-10-08] MEDS ORDERED: magnesium 4gm in 100ml NS 100 ML IV PRN (10:10)
[2018-10-08] MEDS ORDERED: magnesium 2GM in 50ml NS 50 ML IV PRN (10:10)
[2018-10-08] MEDS: lisinopril 20mg tablet PO SCH (12:03)
[2018-10-08] MEDS: potassium Cl 20 mEq SR tablet PO PRN ×2 (12:07→17:53)
[2018-10-08] MEDS ORDERED: LORazepam 2 mg/ml vial IV ONE (13:35)
[2018-10-08] MEDS: NIFEdipine XL 30mg tablet PO SCH (15:31)
[2018-10-08] MEDS: hydrALAZINE 20mg/ml inj. IV PRN (16:37)
--- NOTE | 2018-10-08 17:59 | NUR ---
Patients blood pressures have been high all day. Patient has been given, 5mg of Norvasc, 10mg of Lisinopril, 1mg of Ativan, 90mg of Procardia, and 10mg of Hydralazine. The patients blood pressures are now somewhat normal; diastolic is still a little bit high. The procardia is extended release so it should continue to work.
--- NOTE | 2018-10-08 18:30 | NUR ---
Patient in room [facility]. I have received report from Lavinia MEYER and had the opportunity to ask questions and assume patient care. Pt in bed, resting comfortably
--- NOTE | 2018-10-08 18:58 | NUR ---
Problems reprioritized. Patient report given, questions answered & plan of care reviewed with MITCH Lopez.
[2018-10-08] MEDS: LORazepam 2 mg/ml vial IV PRN (23:51)
[2018-10-09] VITALS: BP 95/62
[2018-10-09] MEDS: heparin, porcine 5000 units/ml vial SQ SCH ×4 (00:40→23:03)
[2018-10-09 02:16] VITALS: BP 107/70
[2018-10-09] MEDS: HYDROcodone/acetaminophen 10/325mg tab PO PRN ×3 (03:33→22:52)
[2018-10-09 06:30] VITALS: BP 110/71
[2018-10-09 06:40] LABS: MAGNESIUM 1.1 MG/DL (1.5-2.4); POTASSIUM 3.6 MMOL/L (3.5-5.1)
--- NOTE | 2018-10-09 06:45 | NUR ---
Patient in room [facility]. I have received report from MITCH Lopez and had the opportunity to ask questions and assume patient care.
--- NOTE | 2018-10-09 06:50 | NUR ---
Problems reprioritized. Patient report given, questions answered & plan of care reviewed with Dulce RN.
[2018-10-09] MEDS: NIFEdipine XL 30mg tablet PO SCH (07:25)
[2018-10-09 09:22] LABS: BASOPHILS % (AUTO) 0.4 % (0-1); EOSINOPHILS # (AUTO) 0.1 X10'3 (0-0.9); EOSINOPHILS % (AUTO) 1.4 % (0-6); HEMATOCRIT 29.9 % (42.0-52.0); HEMOGLOBIN 10.1 g/dl (14.0-17.9); LYMPHOCYTES # (AUTO) 1.5 X10'3 (1.1-4.8); LYMPHOCYTES % (AUTO) 14.6 % (21-51); MEAN CORPUSCULAR HGB CONC 33.7 % (33.0-36.5); MEAN PLATELET VOLUME 5.8 FL (7.4-10.4); MONOCYTES % (AUTO) 9.5 % (2-12); NEUTROPHILS # (AUTO) 7.7 X10'3 (1.8-7.7); NEUTROPHILS % (AUTO) 74.1 % (42-75); PLATELET COUNT 255 X10'3 (140-440); RED BLOOD COUNT 2.96 X10'6 (4.70-6.10); RED CELL DISTRIBUTION WIDTH 15.1 % (11.5-14.5); WHITE BLOOD COUNT 10.4 X10'3 (4.5-11.0)
[2018-10-09] MEDS: lisinopril 20mg tablet PO SCH (09:29)
[2018-10-09] MEDS: pantoprazole 40 MG vial IV SCH (09:36)
[2018-10-09] MEDS: levoTHYROXINE 175mcg tablet PO SCH (09:37)
[2018-10-09 09:42] LABS: ALANINE AMINOTRANSFERASE 28 U/L (12-78); ALBUMIN 2.8 G/DL (3.4-5.0); ALBUMIN/GLOBULIN RATIO 0.7 (1.1-1.5); ALKALINE PHOSPHATASE 91 IU/L (46-116); ANION GAP 11 (8-16); ASPARTATE AMINO TRANSFERASE 50 U/L (10-37); BILIRUBIN,TOTAL 0.5 MG/DL (0.1-1.0); BLOOD UREA NITROGEN 22 MG/DL (7-18); BUN/CREATININE RATIO 13.8 (5.4-32.0); CHLORIDE 97 MMOL/L (99-107); CREATININE 1.59 MG/DL (0.60-1.10); GLUCOSE 117 MG/DL (70-104); POTASSIUM 3.5 MMOL/L (3.5-5.1); SODIUM 133 MMOL/L (135-145); TOTAL CARBON DIOXIDE 25.4 MMOL/L (24-32); TOTAL PROTEIN 7.1 G/DL (6.4-8.2); eGFR 44 ML/MIN
[2018-10-09] MEDS: magnesium Cl slow-release 64mg tablet PO PRN ×2 (09:57→22:51)
[2018-10-09 12:05] VITALS: BP 108/71
[2018-10-09] MEDS: dextrose 5%-1/2 normal saline 1,000 ML IV SCH (17:49)
[2018-10-09 18:00] VITALS: BP 115/84
--- NOTE | 2018-10-09 18:00 | NUR ---
Problems reprioritized. Patient report given, questions answered & plan of care reviewed with MITCH Lopez.
[2018-10-09] MEDS: metoclopramide 5 mg/ml inj IV SCH (20:01)
[2018-10-10] VITALS: BP 118/79
[2018-10-10] MEDS: metoclopramide 5 mg/ml inj IV SCH ×4 (01:17→19:15)
[2018-10-10] MEDS: dextrose 5%-1/2 normal saline 1,000 ML IV SCH ×3 (01:17→16:16)
[2018-10-10 06:06] LABS: MAGNESIUM 1.1 MG/DL (1.5-2.4); POTASSIUM 3.2 MMOL/L (3.5-5.1)
--- NOTE | 2018-10-10 06:29 | NUR ---
Problems reprioritized. Patient report given, questions answered & plan of care reviewed with diego eisenberg
[2018-10-10 07:00] VITALS: BP 124/81
[2018-10-10] MEDS: pantoprazole 40 MG vial IV SCH (08:18)
[2018-10-10] MEDS: heparin, porcine 5000 units/ml vial SQ SCH ×3 (08:19→23:23)
[2018-10-10] MEDS: HYDROcodone/acetaminophen 10/325mg tab PO PRN ×2 (08:19→20:57)
[2018-10-10] MEDS: levoTHYROXINE 175mcg tablet PO SCH (08:19)
[2018-10-10] MEDS: lisinopril 10 MG tablet PO SCH (08:20)
[2018-10-10] MEDS: magnesium Cl slow-release 64mg tablet PO PRN ×2 (08:30→23:22)
[2018-10-10] MEDS: potassium Cl 20 mEq SR tablet PO PRN ×3 (08:31→23:21)
[2018-10-10 11:00] VITALS: BP 132/89
--- NOTE | 2018-10-10 18:46 | NUR ---
Problems reprioritized. Patient report given, questions answered & plan of care reviewed with MITCH Baer.
[2018-10-10 20:00] VITALS: BP 155/100
[2018-10-10 23:57] VITALS: BP 167/97
--- NOTE | 2018-10-11 01:00 | NUR ---
Pt c/o abd pain with intake of PO fluids. Will continue to monitor.
[2018-10-11] MEDS: dextrose 5%-1/2 normal saline 1,000 ML IV SCH ×2 (01:07→09:04)
[2018-10-11] MEDS: metoclopramide 5 mg/ml inj IV SCH ×2 (01:07→08:01)
[2018-10-11] MEDS: HYDROcodone/acetaminophen 10/325mg tab PO PRN ×2 (01:08→11:22)
[2018-10-11 06:28] LABS: BASOPHILS # (AUTO) 0.2 X10'3 (0-0.2); BASOPHILS % (AUTO) 1.5 % (0-1); EOSINOPHILS # (AUTO) 0.3 X10'3 (0-0.9); EOSINOPHILS % (AUTO) 3.2 % (0-6); HEMATOCRIT 29.6 % (42.0-52.0); HEMOGLOBIN 10.1 g/dl (14.0-17.9); LYMPHOCYTES # (AUTO) 1.6 X10'3 (1.1-4.8); LYMPHOCYTES % (AUTO) 15.7 % (21-51); MEAN CORPUSCULAR HEMOGLOBIN 34.2 PG (27.0-31.0); MEAN CORPUSCULAR VOLUME 100.6 FL (78-98); MEAN PLATELET VOLUME 6.3 FL (7.4-10.4); MONOCYTES # (AUTO) 0.9 X10'3 (0-0.9); MONOCYTES % (AUTO) 9.1 % (2-12); NEUTROPHILS # (AUTO) 7.4 X10'3 (1.8-7.7); NEUTROPHILS % (AUTO) 70.5 % (42-75); PLATELET COUNT 355 X10'3 (140-440); RED BLOOD COUNT 2.95 X10'6 (4.70-6.10); RED CELL DISTRIBUTION WIDTH 14.5 % (11.5-14.5); WHITE BLOOD COUNT 10.4 X10'3 (4.5-11.0)
--- NOTE | 2018-10-11 06:31 | NUR ---
Patient in room [facility]. I have received report from Riddhi MEYER and had the opportunity to ask questions and assume patient care.
--- NOTE | 2018-10-11 06:31 | NUR ---
Problems reprioritized. Patient report given, questions answered & plan of care reviewed with MITCH Clemens.
[2018-10-11 06:34] LABS: ALANINE AMINOTRANSFERASE 33 U/L (12-78); ALBUMIN 2.7 G/DL (3.4-5.0); ALBUMIN/GLOBULIN RATIO 0.6 (1.1-1.5); ALKALINE PHOSPHATASE 95 IU/L (46-116); ANION GAP 8 (8-16); ASPARTATE AMINO TRANSFERASE 41 U/L (10-37); BILIRUBIN,TOTAL 0.6 MG/DL (0.1-1.0); BLOOD UREA NITROGEN 9 MG/DL (7-18); BUN/CREATININE RATIO 7.8 (5.4-32.0); CHLORIDE 96 MMOL/L (99-107); CREATININE 1.15 MG/DL (0.60-1.10); GLUCOSE 106 MG/DL (70-104); MAGNESIUM 1.1 MG/DL (1.5-2.4); POTASSIUM 3.7 MMOL/L (3.5-5.1); SODIUM 129 MMOL/L (135-145); TOTAL CARBON DIOXIDE 24.8 MMOL/L (24-32); eGFR 65 ML/MIN
[2018-10-11 06:58] VITALS: BP 133/94
[2018-10-11] MEDS: lisinopril 10 MG tablet PO SCH (07:59)
[2018-10-11] MEDS: levoTHYROXINE 175mcg tablet PO SCH (07:59)
[2018-10-11] MEDS: pantoprazole 40 MG vial IV SCH (08:00)
[2018-10-11] MEDS: heparin, porcine 5000 units/ml vial SQ SCH (08:00)
[2018-10-11 11:00] VITALS: BP 150/94
[2018-10-11] MEDS ORDERED: bisacodyl 10mg suppository rectal RC PRN (11:05)
[2018-10-11] MEDS ORDERED: LISI-600 PO (14:03)
--- NOTE | 2018-10-11 16:11 | NUR ---
Patient delivered to [facility] via Taxi provided by [facility], A&Ox4. VSS
== END 2018-10-11 16:14 | disposition home or self-care (01) | DRG 263 ==
LOC: ER 16:55 → ED HOLD 21:31 → SUR 3N 23:45 → PACU 10-06 13:37 → SUR 3N 10-06 16:26
PROVIDERS: ADMIT Internal Medicine; ATTEND Internal Medicine
PROC: 0FT44ZZ Resection of Gallbladder, Percutaneous Endoscopic Approach (ICD-10-PCS; principal; 2018-10-06 14:02)
DX: K80.00 Calculus of gallbladder with acute cholecystitis without obstruction (principal); K59.39 Other megacolon; K85.10 Biliary acute pancreatitis without necrosis or infection; B19.20 Unspecified viral hepatitis C without hepatic coma; E03.9 Hypothyroidism, unspecified; F10.10 Alcohol abuse, uncomplicated; F17.210 Nicotine dependence, cigarettes, uncomplicated; I10 Essential (primary) hypertension; I16.0 Hypertensive urgency; K21.9 Gastro-esophageal reflux disease without esophagitis; N17.9 Acute kidney failure, unspecified; K56.7 Ileus, unspecified; K86.0 Alcohol-induced chronic pancreatitis; M16.12 Unilateral primary osteoarthritis, left hip; R16.0 Hepatomegaly, not elsewhere classified; Z88.2 Allergy status to sulfonamides; Z79.890 Hormone replacement therapy; Z88.8 Allergy status to other drugs, medicaments and biological substances; Z82.3 Family history of stroke; Z87.19 Personal history of other diseases of the digestive system; Z99.3 Dependence on wheelchair; Z59.0 Homelessness; Z56.0 Unemployment, unspecified; Z79.899 Other long term (current) drug therapy; Z90.49 Acquired absence of other specified parts of digestive tract
CPT/HCPCS: 36415; 71045; 74018; 76536; 76700; 80053; 80320; 81001; 82150; 83605; 83690; 83735; 84132; 84439; 84443; 85025; 85610; 87040; 87070; 93005; 96361; 96374; 96375; 99285; A7000; C9113; C9399; G0378; J0360; J0690; J1100; J1170; J1644; J2060; J2250; J2405; J2543; J2704; J2710; J2765; J3010; J3490; J7030; J7120

== ENCOUNTER 2018-11-22 18:50 | Inpatient (IN) | payer MEDICAID ==
[~2018-11-22] VITALS: Ht 167.6 cm; Wt 68.0 kg
[~2018-11-22 18:50] MED LIST changes: -AMLO5TAB16 PO; -CEPH250T PO; -CLOT30CR TP; -FOLI1TAB16 PO; -METO25TA6 PO; +OMEP-50 PO; -ONDA4TAB59 PO; -PANT-47 PO; -THI100T PO
[2018-11-22 19:15] LABS: BASOPHILS # (AUTO) 0.1 X10'3 (0-0.2); BASOPHILS % (AUTO) 1.4 % (0-1); EOSINOPHILS # (AUTO) 0.1 X10'3 (0-0.9); EOSINOPHILS % (AUTO) 1.9 % (0-6); HEMATOCRIT 37.2 % (42.0-52.0); HEMOGLOBIN 12.6 g/dl (14.0-17.9); LYMPHOCYTES # (AUTO) 2.3 X10'3 (1.1-4.8); LYMPHOCYTES % (AUTO) 32.6 % (21-51); MEAN CORPUSCULAR HEMOGLOBIN 33.9 PG (27.0-31.0); MEAN CORPUSCULAR VOLUME 99.7 FL (78-98); MEAN PLATELET VOLUME 5.7 FL (7.4-10.4); MONOCYTES # (AUTO) 0.4 X10'3 (0-0.9); NEUTROPHILS # (AUTO) 4.2 X10'3 (1.8-7.7); NEUTROPHILS % (AUTO) 59.1 % (42-75); PLATELET COUNT 449 X10'3 (140-440); RED BLOOD COUNT 3.72 X10'6 (4.70-6.10); RED CELL DISTRIBUTION WIDTH 15.4 % (11.5-14.5); WHITE BLOOD COUNT 7.1 X10'3 (4.5-11.0)
[2018-11-22 19:26] LABS: ALANINE AMINOTRANSFERASE 26 U/L (12-78); ALBUMIN 3.9 G/DL (3.4-5.0); ALBUMIN/GLOBULIN RATIO 0.8 (1.1-1.5); ALKALINE PHOSPHATASE 77 IU/L (46-116); ANION GAP 10 (8-16); ASPARTATE AMINO TRANSFERASE 36 U/L (10-37); BILIRUBIN,TOTAL 0.3 MG/DL (0.1-1.0); BLOOD UREA NITROGEN 15 MG/DL (7-18); BUN/CREATININE RATIO 13.5 (5.4-32.0); CHLORIDE 95 MMOL/L (99-107); CREATININE 1.11 MG/DL (0.60-1.10); GLUCOSE 84 MG/DL (70-104); SODIUM 130 MMOL/L (135-145); TOTAL CARBON DIOXIDE 25.2 MMOL/L (24-32); TOTAL PROTEIN 8.6 G/DL (6.4-8.2); eGFR 67 ML/MIN
[2018-11-22 19:27] LABS: PROTHROMBIN TIME 10.6 SECONDS (9.0-12.0)
[2018-11-22] MEDS ORDERED: HYDROcodone/acetaminophen 5mg/325mg tablet PO ONE (19:35)
[2018-11-22 19:39] LABS: CLARITY,URINE CLEAR (Clear); COLOR,URINE YELLOW (Yellow); GLUCOSE, URINE NEGATIVE (Neg); KETONES,URINE NEGATIVE (Neg); LEUKOCYTE ESTERASE ,URINE NEGATIVE (Neg); NITRITES, URINE NEGATIVE (Neg); OCCULT BLOOD,URINE TRACE-LYSED (Neg); PH,URINE 6.5 (4.8-8.0); PROTEIN,URINE 30 mg/dl (Neg); UROBILINOGEN,URINE 0.2 E.U/dL (0.2-1.0)
[2018-11-22 19:41] LABS: UA COLLECTION TYPE CLN CATCH MIDSTREAM
[2018-11-22 19:45] LABS: SQUAMOUS EPITHELIAL CELL,UR FEW /LPF (FEW)
[2018-11-22 19:46] LABS: BACTERIA,URINE FEW /HPF (Neg); RBC,URINE 0-2 /HPF (0-2); WBC,URINE 0-4 /HPF (0-4)
[2018-11-22 19:51] LABS: LIPASE 9027 U/L (73-393)
[2018-11-22] MEDS ORDERED: normal saline 1000ML IV soln IVB ONE (20:00)
[2018-11-22 20:22] LABS: URINE AMPHETAMINE SCREEN NEGATIVE (Neg); URINE BARBITUATE SCREEN NEGATIVE (Neg); URINE BENZODIAZEPINES SCREEN NEGATIVE (Neg); URINE CANNABINOID SCREEN NEGATIVE (Neg); URINE COCAINE SCREEN NEGATIVE (Neg); URINE METHADONE SCREEN NEGATIVE (Neg); URINE OPIATE SCREEN NEGATIVE (Neg); URINE PHENCYCLIDINE SCREEN NEGATIVE (Neg)
[2018-11-22] MEDS ORDERED: morphine 4 MG/ML inj SYRINge IV ONE (20:35)
[2018-11-22] MEDS ORDERED: ondansetron/PF 4mg/2ml inj IV PRN (21:10)
[2018-11-22] MEDS ORDERED: magnesium Cl slow-release 64mg tablet PO PRN (21:10)
[2018-11-22] MEDS ORDERED: magnesium 4gm in 100ml NS 100 ML IV PRN (21:10)
[2018-11-22] MEDS ORDERED: magnesium 2GM in 50ml NS 50 ML IV PRN (21:10)
[2018-11-22] MEDS ORDERED: HYDROcodone/acetaminophen 5mg/325mg tablet PO PRN (21:10)
[2018-11-22] MEDS ORDERED: morphine 4 MG/ML inj SYRINge IV PRN (21:10)
[2018-11-22] MEDS ORDERED: potassium Cl 40MEQ/NS 500ml 500 ML IV PRN ×2 (21:10)
[2018-11-22] MEDS ORDERED: mag hydrox/Alum hydrox/simeth 30ml oral suspension PO PRN (21:10)
[2018-11-22] MEDS ORDERED: magnesium hydroxide 30ml (MOM) UD suspension PO PRN (21:10)
[2018-11-22] MEDS ORDERED: acetaminophen 325mg tablet PO PRN ×2 (21:10)
[2018-11-22] MEDS ORDERED: potassium Cl 20 mEq SR tablet PO PRN ×2 (21:10)
[2018-11-22] MEDS ORDERED: LORazepam 1 MG tablet PO PRN (21:15)
[2018-11-22] MEDS ORDERED: haloperidol lactate 5mg/ml inj IM PRN (21:15)
[2018-11-22] MEDS ORDERED: haloperidol 5mg tablet PO PRN (21:15)
[2018-11-22] MEDS ORDERED: LORazepam 2 mg/ml vial IV PRN (21:15)
[2018-11-22] MEDS ORDERED: labetalol 20mg/4ml (5mg/ml) syringe IV ONE (21:15)
[2018-11-22] MEDS ORDERED: thiamine inj. 100 MG in normal saline 100ml IV soln 100 ML IV ONE (21:15)
[2018-11-22] MEDS: normal saline 1000ml 1,000 ML IV SCH ×3 (21:18→21:25)
--- NOTE | 2018-11-22 22:44 | NUR ---
Received pt report from Jj in the ED. Pt received on the unit at 2230 prox. VSS, Pt A/O x4, IV connected to NS. Transferred from [place] [place] to bed via slide board. Pt changed into gown from street clothes. Pt states abdominal pain 8/10. No signs of distress, will continue to monitor.
[2018-11-22] MEDS: morphine 4 MG/ML inj SYRINge IV PRN (22:57)
[2018-11-22] MEDS: folic acid inj. 2 MG, thiamine inj. 100 MG, MVI, adult No.4 with vit. K 10 ML in dextro... IV SCH ×4 (23:39)
[2018-11-23 00:16] VITALS: BP 167/101
[2018-11-23] MEDS: HYDROcodone/acetaminophen 10/325mg tab PO PRN ×5 (01:45→20:15)
[2018-11-23] MEDS: morphine 4 MG/ML inj SYRINge IV PRN ×5 (04:02→23:09)
[2018-11-23 05:43] LABS: BASOPHILS # (AUTO) 0.1 X10'3 (0-0.2); BASOPHILS % (AUTO) 0.7 % (0-1); EOSINOPHILS # (AUTO) 0.2 X10'3 (0-0.9); EOSINOPHILS % (AUTO) 1.7 % (0-6); HEMATOCRIT 31.2 % (42.0-52.0); HEMOGLOBIN 10.7 g/dl (14.0-17.9); LYMPHOCYTES # (AUTO) 2.6 X10'3 (1.1-4.8); LYMPHOCYTES % (AUTO) 28.5 % (21-51); MEAN CORPUSCULAR HEMOGLOBIN 34.6 PG (27.0-31.0); MEAN CORPUSCULAR HGB CONC 34.4 g/dL (33.0-36.5); MEAN CORPUSCULAR VOLUME 100.5 FL (78-98); MEAN PLATELET VOLUME 6.1 FL (7.4-10.4); MONOCYTES # (AUTO) 0.4 X10'3 (0-0.9); MONOCYTES % (AUTO) 4.8 % (2-12); NEUTROPHILS # (AUTO) 5.9 X10'3 (1.8-7.7); NEUTROPHILS % (AUTO) 64.3 % (42-75); PLATELET COUNT 368 X10'3 (140-440); WHITE BLOOD COUNT 9.2 X10'3 (4.5-11.0)
[2018-11-23 05:57] LABS: ALANINE AMINOTRANSFERASE 21 U/L (12-78); ALBUMIN 3.1 G/DL (3.4-5.0); ALBUMIN/GLOBULIN RATIO 0.8 (1.1-1.5); ALKALINE PHOSPHATASE 66 IU/L (46-116); ANION GAP 7 (8-16); ASPARTATE AMINO TRANSFERASE 27 U/L (10-37); BILIRUBIN,TOTAL 0.6 MG/DL (0.1-1.0); BLOOD UREA NITROGEN 15 MG/DL (7-18); BUN/CREATININE RATIO 12.4 (5.4-32.0); CALCIUM 8.2 MG/DL (8.5-10.1); CHLORIDE 97 MMOL/L (99-107); CREATININE 1.21 MG/DL (0.60-1.10); GLUCOSE 81 MG/DL (70-104); MAGNESIUM 1.4 MG/DL (1.5-2.4); POTASSIUM 3.9 MMOL/L (3.5-5.1); SODIUM 130 MMOL/L (135-145); TOTAL CARBON DIOXIDE 25.6 MMOL/L (24-32); TOTAL PROTEIN 6.8 G/DL (6.4-8.2); eGFR 61 ML/MIN
[2018-11-23 06:08] LABS: LIPASE 5620 U/L (73-393)
--- NOTE | 2018-11-23 06:27 | NUR ---
Problems reprioritized. Patient report given, questions answered & plan of care reviewed with Eden MEYER.
[2018-11-23 07:00] VITALS: BP 126/87
[2018-11-23] MEDS ORDERED: multivitamins, therapeutics tablet PO SCH (08:00)
[2018-11-23] MEDS ORDERED: thiamine 100mg tablet PO SCH (08:00)
[2018-11-23] MEDS ORDERED: folic acid 1mg tablet PO SCH (08:00)
[2018-11-23] MEDS: K and/or MAG REPLACEMENT MC SCH (08:54)
[2018-11-23] MEDS: enoxaparin 40mg/0.4ml syringe SQ SCH (09:22)
[2018-11-23] MEDS: pantoprazole 40mg Tablet.DR PO SCH (09:24)
[2018-11-23] MEDS: levoTHYROXINE 175mcg tablet PO SCH (09:24)
[2018-11-23] MEDS: folic acid inj. 2 MG, thiamine inj. 100 MG, MVI, adult No.4 with vit. K 10 ML in dextro... IV SCH ×4 (09:24)
[2018-11-23 11:00] VITALS: BP 121/76
--- NOTE | 2018-11-23 14:45 | NUR ---
Patient admitted with abdominal pain, h/o heavy EtOH and found to have EtOH pancreatitis with improving pain today, no nausea or vomiting today all per MD note. Receiving banana bag. Lipase levels are improving today. When abdominal pain subsides pt may benefit from diet advancement, final diet recommended to be low fat. Recommend: 1. Advance diet as medically indicated to low fat 2. Pancreatitis education 3. Weight per rx Addendum: 11/23/18 at [address] Amended: Links added.
--- NOTE | 2018-11-23 18:25 | NUR ---
Patient in room [facility]. I have received report from Eden MEYER and had the opportunity to ask questions and assume patient care. Pt laying in bed resting and watching tv. No signs of distress, will continue to monitor.
[2018-11-23] MEDS: normal saline 1000ml 1,000 ML IV SCH (19:01)
[2018-11-23 22:00] VITALS: BP 134/90
[2018-11-23] MEDS: diphenhydrAMINE 25mg capsule PO PRN (23:08)
[2018-11-23 23:29] VITALS: BP 128/80
[2018-11-24] MEDS: HYDROcodone/acetaminophen 10/325mg tab PO PRN ×3 (00:41→22:30)
[2018-11-24] MEDS: morphine 4 MG/ML inj SYRINge IV PRN ×3 (03:11→19:38)
[2018-11-24] MEDS: normal saline 1000ml 1,000 ML IV SCH ×2 (05:26→22:30)
[2018-11-24 06:07] LABS: BASOPHILS # (AUTO) 0.1 X10'3 (0-0.2); BASOPHILS % (AUTO) 1.3 % (0-1); EOSINOPHILS # (AUTO) 0.3 X10'3 (0-0.9); EOSINOPHILS % (AUTO) 4.8 % (0-6); HEMATOCRIT 31.8 % (42.0-52.0); HEMOGLOBIN 10.6 g/dl (14.0-17.9); LYMPHOCYTES # (AUTO) 2.3 X10'3 (1.1-4.8); LYMPHOCYTES % (AUTO) 34.4 % (21-51); MEAN CORPUSCULAR HGB CONC 33.4 g/dL (33.0-36.5); MEAN CORPUSCULAR VOLUME 101.9 FL (78-98); MEAN PLATELET VOLUME 6.4 FL (7.4-10.4); MONOCYTES # (AUTO) 0.3 X10'3 (0-0.9); MONOCYTES % (AUTO) 4.9 % (2-12); NEUTROPHILS # (AUTO) 3.7 X10'3 (1.8-7.7); NEUTROPHILS % (AUTO) 54.6 % (42-75); PLATELET COUNT 367 X10'3 (140-440); RED BLOOD COUNT 3.12 X10'6 (4.70-6.10); RED CELL DISTRIBUTION WIDTH 15.3 % (11.5-14.5); WHITE BLOOD COUNT 6.7 X10'3 (4.5-11.0)
[2018-11-24 06:18] LABS: ALANINE AMINOTRANSFERASE 17 U/L (12-78); ALBUMIN 3.2 G/DL (3.4-5.0); ALBUMIN/GLOBULIN RATIO 0.8 (1.1-1.5); ALKALINE PHOSPHATASE 71 IU/L (46-116); ANION GAP 8 (8-16); ASPARTATE AMINO TRANSFERASE 26 U/L (10-37); BILIRUBIN,TOTAL 0.5 MG/DL (0.1-1.0); BLOOD UREA NITROGEN 12 MG/DL (7-18); BUN/CREATININE RATIO 9.3 (5.4-32.0); CALCIUM 8.5 MG/DL (8.5-10.1); CHLORIDE 101 MMOL/L (99-107); CREATININE 1.29 MG/DL (0.60-1.10); GLUCOSE 72 MG/DL (70-104); LIPASE 1821 U/L (73-393); MAGNESIUM 1.6 MG/DL (1.5-2.4); POTASSIUM 4.3 MMOL/L (3.5-5.1); SODIUM 133 MMOL/L (135-145); TOTAL CARBON DIOXIDE 23.7 MMOL/L (24-32); eGFR 57 ML/MIN
--- NOTE | 2018-11-24 06:46 | NUR ---
Problems reprioritized. Patient report given, questions answered & plan of care reviewed with Eden MEYER.
[2018-11-24 07:00] VITALS: BP 140/88
[2018-11-24] MEDS: K and/or MAG REPLACEMENT MC SCH (08:00)
[2018-11-24] MEDS: pantoprazole 40mg Tablet.DR PO SCH (08:38)
[2018-11-24] MEDS: levoTHYROXINE 175mcg tablet PO SCH (08:38)
[2018-11-24] MEDS: enoxaparin 40mg/0.4ml syringe SQ SCH (08:39)
[2018-11-24] MEDS: folic acid inj. 2 MG, thiamine inj. 100 MG, MVI, adult No.4 with vit. K 10 ML in dextro... IV SCH ×4 (08:40)
[2018-11-24 12:00] VITALS: BP 136/81
[2018-11-24 20:00] VITALS: BP 156/92
--- NOTE | 2018-11-24 22:36 | NUR ---
Blood sugar check 71. patient given 2 juices and a sand which. Will continue to monitor.
[2018-11-25] VITALS: BP 123/78
[2018-11-25 06:04] LABS: BASOPHILS # (AUTO) 0.1 X10'3 (0-0.2); BASOPHILS % (AUTO) 1.2 % (0-1); EOSINOPHILS # (AUTO) 0.4 X10'3 (0-0.9); EOSINOPHILS % (AUTO) 6.2 % (0-6); HEMATOCRIT 32.2 % (42.0-52.0); HEMOGLOBIN 10.8 g/dl (14.0-17.9); LYMPHOCYTES # (AUTO) 2.6 X10'3 (1.1-4.8); MEAN CORPUSCULAR HGB CONC 33.6 g/dL (33.0-36.5); MEAN CORPUSCULAR VOLUME 101.1 FL (78-98); MEAN PLATELET VOLUME 6.5 FL (7.4-10.4); MONOCYTES # (AUTO) 0.3 X10'3 (0-0.9); MONOCYTES % (AUTO) 5.2 % (2-12); NEUTROPHILS # (AUTO) 2.9 X10'3 (1.8-7.7); NEUTROPHILS % (AUTO) 46.4 % (42-75); PLATELET COUNT 355 X10'3 (140-440); RED BLOOD COUNT 3.19 X10'6 (4.70-6.10); RED CELL DISTRIBUTION WIDTH 15.3 % (11.5-14.5); WHITE BLOOD COUNT 6.3 X10'3 (4.5-11.0)
[2018-11-25 06:14] LABS: ALANINE AMINOTRANSFERASE 18 U/L (12-78); ALBUMIN 3.3 G/DL (3.4-5.0); ALBUMIN/GLOBULIN RATIO 0.8 (1.1-1.5); ALKALINE PHOSPHATASE 68 IU/L (46-116); ANION GAP 8 (8-16); ASPARTATE AMINO TRANSFERASE 30 U/L (10-37); BILIRUBIN,TOTAL 0.3 MG/DL (0.1-1.0); BLOOD UREA NITROGEN 12 MG/DL (7-18); BUN/CREATININE RATIO 9.1 (5.4-32.0); CALCIUM 8.7 MG/DL (8.5-10.1); CHLORIDE 101 MMOL/L (99-107); CREATININE 1.32 MG/DL (0.60-1.10); GLUCOSE 82 MG/DL (70-104); LIPASE 321 U/L (73-393); MAGNESIUM 1.4 MG/DL (1.5-2.4); POTASSIUM 4.1 MMOL/L (3.5-5.1); SODIUM 134 MMOL/L (135-145); TOTAL CARBON DIOXIDE 25.3 MMOL/L (24-32); TOTAL PROTEIN 7.3 G/DL (6.4-8.2); eGFR 55 ML/MIN
[2018-11-25 07:00] VITALS: BP 178/108
--- NOTE | 2018-11-25 07:12 | NUR ---
Patient in room [facility] 358. I have received report from MIKEY and had the opportunity to ask questions and assume patient care.
--- NOTE | 2018-11-25 07:20 | NUR ---
Patient in room [facility]. I have received report from MITCH JENSEN and had the opportunity to ask questions and assume patient care.
[2018-11-25] MEDS: normal saline 1000ml 1,000 ML IV SCH (07:45)
--- NOTE | 2018-11-25 07:48 | NUR ---
DR BACA NOTIFIED OF PATIENT'S BP OF 175/108 AND 186/103 AND PATIENT NOT ON ANY BP BEDS.
[2018-11-25] MEDS: enoxaparin 40mg/0.4ml syringe SQ SCH (07:49)
[2018-11-25] MEDS: pantoprazole 40mg Tablet.DR PO SCH (07:50)
[2018-11-25] MEDS: diphenhydrAMINE 25mg capsule PO PRN (07:50)
[2018-11-25] MEDS: levoTHYROXINE 175mcg tablet PO SCH (07:52)
[2018-11-25] MEDS: K and/or MAG REPLACEMENT MC SCH (08:00)
[2018-11-25] MEDS ORDERED: hydrALAZINE 20mg/ml inj. IV ONE (09:55)
--- NOTE | 2018-11-25 09:58 | NUR ---
Rechecked BP 184/[address] Ohara notified and received new order for hydralazine.
[2018-11-25 11:00] VITALS: BP 140/79
[2018-11-25] MEDS ORDERED: amLODIPine 5mg tablet PO ONE (11:10)
[2018-11-25] MEDS ORDERED: AMLO5TAB4 PO (11:29)
[2018-11-25] MEDS ORDERED: THIA100T66 PO (11:29)
--- NOTE | 2018-11-25 15:44 | NUR ---
Student Medication Administration: For this medication-pass time frame, all medication were reviewed, dispensed, administered and documented per hospital policy by SN Jack. Student documentation: I have reviewed and agree with all interventions, assessments performed and documented by SN Jack.
--- NOTE | 2018-11-25 17:16 | NUR ---
Patient was discharged in wheelchair with assistance of staff with all of the patient's belongings. Patient was in no apparent distress, alert and oriented, and medically stable at the time of discharge.
[2018-11-26] MEDS ORDERED: amLODIPine 5mg tablet PO SCH (08:00)
== END 2018-11-25 17:16 | disposition home or self-care (01) | DRG 282 ==
LOC: ER 18:50 → ED HOLD 21:09 → SUR 3N 22:29
PROVIDERS: ADMIT Hospitalist; ATTEND Family Medicine
DX: K85.20 Alcohol induced acute pancreatitis without necrosis or infection (principal); B19.20 Unspecified viral hepatitis C without hepatic coma; E03.9 Hypothyroidism, unspecified; I10 Essential (primary) hypertension; F10.10 Alcohol abuse, uncomplicated; F17.200 Nicotine dependence, unspecified, uncomplicated; G89.4 Chronic pain syndrome; K21.9 Gastro-esophageal reflux disease without esophagitis; Z59.0 Homelessness; Z88.2 Allergy status to sulfonamides; Z88.8 Allergy status to other drugs, medicaments and biological substances; Z79.899 Other long term (current) drug therapy; Z71.41 Alcohol abuse counseling and surveillance of alcoholic
CPT/HCPCS: 36415; 80053; 80305; 81001; 82948; 83690; 83735; 85025; 85610; 87070; 93005; 96361; 96374; 97161; 99285; G0378; J0360; J1650; J2270; J3411; J3490; J7030; J7060; Q0163

== ENCOUNTER 2018-12-14 07:02 | Inpatient (IN) | payer MEDICAID | END 2018-12-16 15:24 | disposition home or self-care (01) | LOC: ER 07:02 → ED HOLD 08:59 → ORTHO 4S 13:02 ==

== ENCOUNTER 2018-12-28 17:20 | Emergency (ER) | payer MEDICAID ==
[~2018-12-28] VITALS: Ht 167.6 cm; Wt 81.3 kg
[~2018-12-28 17:20] MED LIST changes: +AMLO5TAB4 PO; +HYDR-3965 PO; +LEVO25TA7 PO; -LEVO50TA8 PO; +THIA100T66 PO
[2018-12-28 18:43] LABS: GLUCOSE, URINE NEGATIVE (Neg); KETONES,URINE TRACE mg/dl (Neg); LEUKOCYTE ESTERASE ,URINE NEGATIVE (Neg); NITRITES, URINE NEGATIVE (Neg); OCCULT BLOOD,URINE TRACE-INTACT (Neg); PROTEIN,URINE 30 mg/dl (Neg); UROBILINOGEN,URINE 0.2 E.U/dL (0.2-1.0)
[2018-12-28 18:50] LABS: CLARITY,URINE SLIGHTLY CLOUDY (Clear); COLOR,URINE DARK YELLOW (Yellow); UA COLLECTION TYPE CLN CATCH MIDSTREAM
[2018-12-28] MEDS ORDERED: normal saline 1000ML IV soln IVB ONE (18:50)
[2018-12-28] MEDS ORDERED: ondansetron/PF 4mg/2ml inj IV ONE (18:50)
[2018-12-28 18:57] LABS: MEAN CORPUSCULAR HEMOGLOBIN 34.2 PG (27.0-31.0); MEAN CORPUSCULAR HGB CONC 35.5 g/dL (33.0-36.5); MEAN CORPUSCULAR VOLUME 96.5 FL (78-98); MEAN PLATELET VOLUME 6.6 FL (7.4-10.4); PLATELET COUNT 438 X10'3 (140-440); RED BLOOD COUNT 3.21 X10'6 (4.70-6.10); RED CELL DISTRIBUTION WIDTH 16.2 % (11.5-14.5); WHITE BLOOD COUNT 10.6 X10'3 (4.5-11.0)
[2018-12-28 19:02] LABS: BACTERIA,URINE NONE SEEN /HPF (Neg); RBC,URINE 0-2 /HPF (0-2); SQUAMOUS EPITHELIAL CELL,UR FEW /LPF (FEW)
[2018-12-28] MEDS: morphine 4 MG/ML inj SYRINge IV PRN ×2 (19:02→20:54)
[2018-12-28 19:03] LABS: WBC,URINE 0-4 /HPF (0-4)
[2018-12-28 19:08] LABS: PROTHROMBIN TIME 10.6 SECONDS (9.0-12.0)
[2018-12-28 19:10] LABS: ALANINE AMINOTRANSFERASE 303 U/L (12-78); ALBUMIN 3.4 G/DL (3.4-5.0); BILIRUBIN,TOTAL 12.9 MG/DL (0.1-1.0); BLOOD UREA NITROGEN 15 MG/DL (7-18); BUN/CREATININE RATIO 17.9 (5.4-32.0); CHLORIDE 82 MMOL/L (99-107); CREATININE 0.84 MG/DL (0.60-1.10); GLUCOSE 111 MG/DL (70-104); TOTAL CARBON DIOXIDE 16.8 MMOL/L (24-32); eGFR > 90 ML/MIN
[2018-12-28 19:28] LABS: NUCLEATED RED BLOOD CELLS 1 /100WBC (0-0); TOTAL CELLS COUNTED 100
[2018-12-28 19:31] LABS: PLATELET ESTIMATE NORMAL
[2018-12-28 19:32] LABS: TARGET CELLS 2+
[2018-12-28 19:33] LABS: ALBUMIN/GLOBULIN RATIO 0.7 (1.1-1.5); ASPARTATE AMINO TRANSFERASE 410 U/L (10-37); TOTAL PROTEIN 8.3 G/DL (6.4-8.2)
[2018-12-28 19:37] LABS: ANION GAP 25 (8-16); SODIUM 124 MMOL/L (135-145)
[2018-12-28 19:38] LABS: ALKALINE PHOSPHATASE 1317 IU/L (46-116)
[2018-12-28 19:39] LABS: POTASSIUM 2.9 MMOL/L (3.5-5.1)
[2018-12-28 19:50] LABS: LIPASE 6014 U/L (73-393)
[2018-12-28] MEDS ORDERED: magnesium 2GM in 50ml NS 50 ML IV ONE (20:15)
[2018-12-28] MEDS ORDERED: iohexol 300mg/ml 100ml inj. ONE (20:18)
[2018-12-28] MEDS: potassium 10mEq/100ml NS w/LIDOcaine (10mg/bag) IV SCH ×2 (20:50→21:54)
[2018-12-28 22:10] LABS: MAGNESIUM 1.2 MG/DL (1.5-2.4)
[2018-12-28] MEDS ORDERED: HYDROmorphone 1 mg/ml syringe IV ONE (22:15)
[2018-12-29] MEDS ORDERED: HYDROmorphone 1 mg/ml syringe IV ONE ×2 (02:00→04:50)
[2018-12-29] MEDS ORDERED: ondansetron/PF 4mg/2ml inj IV ONE ×2 (02:15→04:50)
[2018-12-29 06:25] LABS: ALBUMIN 1.9 G/DL (3.4-5.0); ANION GAP 10 (8-16); BILIRUBIN,TOTAL 9.9 MG/DL (0.1-1.0); BLOOD UREA NITROGEN 10 MG/DL (7-18); BUN/CREATININE RATIO 17.5 (5.4-32.0); CHLORIDE 102 MMOL/L (99-107); CREATININE 0.57 MG/DL (0.60-1.10); GLUCOSE 84 MG/DL (70-104); SODIUM 129 MMOL/L (135-145); TOTAL CARBON DIOXIDE 16.9 MMOL/L (24-32); TOTAL PROTEIN 4.9 G/DL (6.4-8.2); eGFR > 90 ML/MIN
[2018-12-29 06:26] LABS: ALANINE AMINOTRANSFERASE 174 U/L (12-78); ALBUMIN/GLOBULIN RATIO 0.6 (1.1-1.5); ALKALINE PHOSPHATASE 742 IU/L (46-116); ASPARTATE AMINO TRANSFERASE 262 U/L (10-37)
[2018-12-29 06:27] LABS: POTASSIUM 2.1 MMOL/L (3.5-5.1)
[2018-12-29] MEDS ORDERED: AMLO5TAB4 PO (06:50)
[2018-12-29] MEDS ORDERED: THIA100T66 PO (06:52)
[2018-12-29 07:00] LABS: ABG BASE EXCESS -1.4 mmol/L (-2.0-3.0); ABG HCO3 22.5 mmol/L (22.0-26.0); ABG OXYGEN SATURATION 94.7 % (95-98); ABG PCO2 (T) 35.1 mmHg (35.0-48.0); ABG PH (T) 7.425 (7.350-7.450); ABG PO2 (T) 74.5 mmHg (83-108); ALLEN'S TEST Positive; FCOHb 1.6 % (0.5-1.5); FMetHb 0.2 % (0.3-1.12); TOTAL HEMOGLOBIN 12.2 G/dl (14.0-18.0)
[2018-12-29] MEDS: morphine 4 MG/ML inj SYRINge IV PRN ×3 (08:07→11:39)
[2018-12-29 08:09] LABS: ALANINE AMINOTRANSFERASE 299 U/L (12-78); ALBUMIN 3.3 G/DL (3.4-5.0); ANION GAP 11 (8-16); BILIRUBIN,TOTAL 16.3 MG/DL (0.1-1.0); BLOOD UREA NITROGEN 14 MG/DL (7-18); CALCIUM 9.7 MG/DL (8.5-10.1); CHLORIDE 83 MMOL/L (99-107); MAGNESIUM 1.5 MG/DL (1.5-2.4); TOTAL CARBON DIOXIDE 23.9 MMOL/L (24-32)
[2018-12-29 08:11] LABS: ALBUMIN/GLOBULIN RATIO 0.7 (1.1-1.5); ASPARTATE AMINO TRANSFERASE 463 U/L (10-37); BUN/CREATININE RATIO 15.9 (5.4-32.0); CREATININE 0.88 MG/DL (0.60-1.10); GLUCOSE 106 MG/DL (70-104); PHOSPHORUS 3.4 MG/DL (2.3-4.5); POTASSIUM 3.7 MMOL/L (3.5-5.1); TOTAL PROTEIN 8.2 G/DL (6.4-8.2); eGFR 88 ML/MIN
[2018-12-29 08:24] LABS: SODIUM 118 MMOL/L (135-145)
[2018-12-29] MEDS ORDERED: normal saline 1000ML IV soln IVB ONE (08:25)
--- NOTE | 2018-12-29 08:30 | NUR ---
Lab called with Na 118. Dr. Amanda informed. NS bolus ordered.
--- NOTE | 2018-12-29 08:56 | NUR ---
[facility]- DECLINED. AT [facility].
[2018-12-29 09:04] LABS: ALKALINE PHOSPHATASE 1216 IU/L (46-116)
--- NOTE | 2018-12-29 10:20 | NUR ---
LABS AND CT REPORT FAXED TO [facility]
[2018-12-29 10:55] VITALS: BP 146/99
--- NOTE | 2018-12-29 11:30 | NUR ---
Attempting to call report to Rn at [facility]. Pt to be transferred via ambulance.
== END 2018-12-29 11:50 | disposition short-term general hospital (02) ==
LOC: ER 17:21
DX: K85.90 Acute pancreatitis without necrosis or infection, unspecified (principal); K86.89 Other specified diseases of pancreas; I10 Essential (primary) hypertension; K21.9 Gastro-esophageal reflux disease without esophagitis; E03.9 Hypothyroidism, unspecified; G89.29 Other chronic pain; F17.210 Nicotine dependence, cigarettes, uncomplicated; Z59.0 Homelessness; Z56.0 Unemployment, unspecified; Z98.890 Other specified postprocedural states; Z90.49 Acquired absence of other specified parts of digestive tract; Z79.899 Other long term (current) drug therapy; Z88.2 Allergy status to sulfonamides; Z88.1 Allergy status to other antibiotic agents
CPT/HCPCS: 36415; 36600; 74177; 80053; 81001; 82140; 82803; 83690; 83735; 84100; 85018; 85025; 85610; 96361; 96365; 96375; 96376; 99285; J1170; J2270; J2405; J3475; J3480; Q9967; 96366; 99284

== ENCOUNTER 2019-01-19 04:07 | Inpatient (IN) | payer MEDICAID | END 2019-01-20 14:29 | disposition home or self-care (01) | LOC: ER 04:07 → SUR 3N 13:45 ==

== ENCOUNTER 2019-04-16 12:53 | Emergency (ER) | payer MEDICAID ==
[~2019-04-16] VITALS: Ht 167.6 cm; Wt 68.0 kg
[~2019-04-16 12:53] MED LIST changes: +ALBU18HF2 INH; +AMLO10TA PO; -AMLO5TAB4 PO; +APIX5TAB3 PO; +DIPH1TAB PO; +FOLI1TAB16 PO; -HYDR-3965 PO; +LACT1CAP26 PO; -LEVO25TA7 PO; +LEVO75TA7 PO; +MAGN400O6 PO; +MAGN400T28 PO; +MULT-1179 PO; -OMEP-50 PO; +OMEP20CA11 PO; +PROP10TA10 PO; +SODI1TAB2 PO; -THIA100T66 PO; +THIA100T70 PO
[2019-04-16] MEDS ORDERED: normal saline 1000ML IV soln IVB ONE (13:20)
[2019-04-16] MEDS ORDERED: famotidine/PF 10 mg/ml inj IV ONE (13:20)
[2019-04-16] MEDS ORDERED: ondansetron/PF 4mg/2ml inj IV ONE (13:25)
[2019-04-16 13:29] LABS: EOSINOPHILS % (AUTO) 0.3 % (0-6); MEAN PLATELET VOLUME 6.1 FL (7.4-10.4)
[2019-04-16 13:31] LABS: BASOPHILS # (AUTO) 0.2 X10'3 (0-0.2); BASOPHILS % (AUTO) 1.9 % (0-1); HEMATOCRIT 34.9 % (42.0-52.0); HEMOGLOBIN 11.7 g/dl (14.0-17.9); LYMPHOCYTES # (AUTO) 2.6 X10'3 (1.1-4.8); LYMPHOCYTES % (AUTO) 26.1 % (21-51); MEAN CORPUSCULAR HEMOGLOBIN 33.7 PG (27.0-31.0); MEAN CORPUSCULAR HGB CONC 33.5 g/dL (33.0-36.5); MEAN CORPUSCULAR VOLUME 100.8 FL (78-98); MONOCYTES # (AUTO) 0.5 X10'3 (0-0.9); MONOCYTES % (AUTO) 5.3 % (2-12); NEUTROPHILS # (AUTO) 6.8 X10'3 (1.8-7.7); NEUTROPHILS % (AUTO) 66.4 % (42-75); PLATELET COUNT 619 X10'3 (140-440); RED BLOOD COUNT 3.46 X10'6 (4.70-6.10); RED CELL DISTRIBUTION WIDTH 14.8 % (11.5-14.5); WHITE BLOOD COUNT 10.2 X10'3 (4.5-11.0)
--- NOTE | 2019-04-16 13:34 | NUR ---
pt unable to void for ua at this time.
[2019-04-16 13:38] LABS: ALANINE AMINOTRANSFERASE 21 U/L (12-78); ALBUMIN 3.2 G/DL (3.4-5.0); ALBUMIN/GLOBULIN RATIO 0.6 (1.1-1.5); ALKALINE PHOSPHATASE 89 IU/L (46-116); ANION GAP 12 (8-16); ASPARTATE AMINO TRANSFERASE 25 U/L (10-37); BILIRUBIN,TOTAL 0.4 MG/DL (0.1-1.0); BLOOD UREA NITROGEN 11 MG/DL (7-18); BUN/CREATININE RATIO 8.1 (5.4-32.0); CALCIUM 10.1 MG/DL (8.5-10.1); CHLORIDE 99 MMOL/L (99-107); CREATININE 1.36 MG/DL (0.60-1.10); GLUCOSE 94 MG/DL (70-104); LIPASE 231 U/L (73-393); POTASSIUM 3.4 MMOL/L (3.5-5.1); SODIUM 135 MMOL/L (135-145); TOTAL CARBON DIOXIDE 24.1 MMOL/L (24-32); TOTAL PROTEIN 8.7 G/DL (6.4-8.2); eGFR 53 ML/MIN
[2019-04-16] MEDS ORDERED: pantoprazole 40mg Tablet.DR PO ONE (14:05)
[2019-04-16] MEDS ORDERED: LIDOcaine Viscous 15ml cup PO ONE (14:05)
[2019-04-16] MEDS ORDERED: mag hydrox/Alum hydrox/simeth 30ml oral suspension PO ONE (14:05)
--- NOTE | 2019-04-16 14:12 | NUR ---
Fatimah Chi contacted to arrange transportation to [facility]" as requested by Pt.
[2019-04-16 14:18] VITALS: BP 140/95
== END 2019-04-16 14:22 | disposition home or self-care (01) ==
LOC: ER 12:53
DX: K29.20 Alcoholic gastritis without bleeding (principal); R10.13 Epigastric pain; I10 Essential (primary) hypertension; K21.9 Gastro-esophageal reflux disease without esophagitis; E03.9 Hypothyroidism, unspecified; G89.29 Other chronic pain; F17.200 Nicotine dependence, unspecified, uncomplicated; Z59.0 Homelessness; Z56.0 Unemployment, unspecified; Z98.890 Other specified postprocedural states; Z90.49 Acquired absence of other specified parts of digestive tract; Z88.2 Allergy status to sulfonamides; Z88.8 Allergy status to other drugs, medicaments and biological substances; Z88.1 Allergy status to other antibiotic agents; Z79.899 Other long term (current) drug therapy
CPT/HCPCS: 36415; 80053; 83690; 85025; 85610; 96374; 96375; 99284; J2405; J3490; J7030; 96361; 99283

== ENCOUNTER 2019-05-14 11:44 | Inpatient (IN) | payer MEDICAID ==
[~2019-05-14] VITALS: Ht 167.6 cm; Wt 72.7 kg
[2019-05-14] MEDS ORDERED: normal saline 1000ML IV soln IVB ONE (12:05)
[2019-05-14] MEDS ORDERED: normal saline 1000ML IV soln IV ONE (12:05)
[2019-05-14] MEDS ORDERED: LIDOcaine Viscous 15ml cup PO ONE (12:10)
[2019-05-14] MEDS ORDERED: mag hydrox/Alum hydrox/simeth 30ml oral suspension PO ONE (12:10)
[2019-05-14 12:18] LABS: BASOPHILS % (AUTO) 0.3 % (0-1); EOSINOPHILS # (AUTO) 0.2 X10'3 (0-0.9); EOSINOPHILS % (AUTO) 1.9 % (0-6); HEMATOCRIT 31.7 % (42.0-52.0); HEMOGLOBIN 10.6 g/dl (14.0-17.9); LYMPHOCYTES # (AUTO) 4.2 X10'3 (1.1-4.8); LYMPHOCYTES % (AUTO) 35.3 % (21-51); MEAN CORPUSCULAR HEMOGLOBIN 33.7 PG (27.0-31.0); MEAN CORPUSCULAR HGB CONC 33.3 g/dL (33.0-36.5); MEAN CORPUSCULAR VOLUME 101.1 FL (78-98); MEAN PLATELET VOLUME 5.8 FL (7.4-10.4); MONOCYTES # (AUTO) 0.5 X10'3 (0-0.9); MONOCYTES % (AUTO) 3.9 % (2-12); NEUTROPHILS % (AUTO) 58.6 % (42-75); PLATELET COUNT 565 X10'3 (140-440); RED BLOOD COUNT 3.13 X10'6 (4.70-6.10); RED CELL DISTRIBUTION WIDTH 15.5 % (11.5-14.5); WHITE BLOOD COUNT 11.9 X10'3 (4.5-11.0)
--- NOTE | 2019-05-14 12:23 | NUR ---
left sided cp still 06/30,"i'm going to here",Dr. Taylor made aware.
[2019-05-14] MEDS ORDERED: ondansetron/PF 4mg/2ml inj IV ONE (12:25)
[2019-05-14] MEDS: morphine 4 MG/ML inj SYRINge IV PRN ×2 (12:28→13:41)
[2019-05-14 12:33] LABS: PARTIAL THROMBOPLASTIN TIME 26 SECONDS (22-32)
[2019-05-14 12:34] LABS: ALANINE AMINOTRANSFERASE 12 U/L (12-78); ALBUMIN 2.5 G/DL (3.4-5.0); ALBUMIN/GLOBULIN RATIO 0.5 (1.1-1.5); ALKALINE PHOSPHATASE 58 IU/L (46-116); ANION GAP 11 (8-16); ASPARTATE AMINO TRANSFERASE 16 U/L (10-37); BILIRUBIN,TOTAL 0.2 MG/DL (0.1-1.0); BLOOD UREA NITROGEN 11 MG/DL (7-18); BUN/CREATININE RATIO 8.9 (5.4-32.0); CALCIUM 8.5 MG/DL (8.5-10.1); CHLORIDE 102 MMOL/L (99-107); CREATININE 1.23 MG/DL (0.60-1.10); GLUCOSE 102 MG/DL (70-104); MAGNESIUM 1.3 MG/DL (1.5-2.4); POTASSIUM 3.9 MMOL/L (3.5-5.1); SODIUM 132 MMOL/L (135-145); TOTAL CARBON DIOXIDE 19.1 MMOL/L (24-32); TOTAL PROTEIN 7.2 G/DL (6.4-8.2); eGFR 60 ML/MIN
[2019-05-14 13:02] LABS: CLARITY,URINE CLEAR (Clear); COLOR,URINE STRAW (Yellow); GLUCOSE, URINE NEGATIVE (Neg); KETONES,URINE NEGATIVE (Neg); LEUKOCYTE ESTERASE ,URINE NEGATIVE (Neg); NITRITES, URINE NEGATIVE (Neg); OCCULT BLOOD,URINE NEGATIVE (Neg); PROTEIN,URINE NEGATIVE (Neg); UROBILINOGEN,URINE 0.2 E.U/dL (0.2-1.0)
[2019-05-14 13:05] LABS: UA COLLECTION TYPE VOIDED
--- NOTE | 2019-05-14 13:47 | NUR ---
reports no relief from GI cocktail,2nd dose of morphine given as ordered,pain 10/10 at this time.We will monitor.
[2019-05-14] MEDS ORDERED: HYDROcodone/acetaminophen 5mg/325mg tablet PO ONE (16:10)
[2019-05-14 17:15] LABS: TROPONIN I 1.06 NG/ML (0.0-0.05)
[2019-05-14] MEDS ORDERED: enoxaparin 100mg/ml syringe SUBCUT ONE (17:15)
[2019-05-14] MEDS ORDERED: nitroGLYCERIN 0.4mg/hour patch TD ONE (17:20)
[2019-05-14] MEDS ORDERED: morphine 4 MG/ML inj SYRINge IV ONE (17:25)
[2019-05-14] MEDS ORDERED: magnesium 2GM in 50ml NS 50 ML IV PRN (17:30)
[2019-05-14] MEDS ORDERED: magnesium 4gm in 100ml NS 100 ML IV PRN (17:30)
[2019-05-14] MEDS ORDERED: potassium Cl 20 mEq SR tablet PO PRN ×2 (17:30)
[2019-05-14] MEDS ORDERED: potassium CL 10mEq/100ml bag 100 ML IV PRN ×2 (17:30)
[2019-05-14] MEDS ORDERED: ondansetron/PF 4mg/2ml inj IV PRN (17:30)
[2019-05-14] MEDS ORDERED: metoprolol tartrate 50mg tablet PO ONE (17:40)
[2019-05-14] MEDS ORDERED: nitroGLYCERIN 0.4mg SUBLingual tab SL PRN (17:40)
[2019-05-14] MEDS ORDERED: metoprolol tartrate 1mg/ml inj IV ONE (17:40)
[2019-05-14] MEDS ORDERED: pantoprazole 40 MG vial IV ONE (17:50)
--- NOTE | 2019-05-14 18:00 | NUR ---
paged dr. shah regarding troponin 3.14.awaiting call.
[2019-05-14] MEDS ORDERED: MAGN400C PO (18:28)
--- NOTE | 2019-05-14 18:30 | NUR ---
lopressor iv and po held,hr 54bpmin.
--- NOTE | 2019-05-14 19:32 | NUR ---
[facility]MAS MAYER PCU ASKED ABOUT [facility] NOTE ABOUT ELEVATED TROPONIN NEEDING AGGRASTAT PER DR SHAH RECOMMENDATIONS. [facility] STATED ITS NEXT TROPONIN, 12 HR TROPONIN, THAT WOULD BE THE DECIDING FACTOR. UPDATED ALMAS MAYER OF PLAN
[2019-05-14 20:00] VITALS: BP 127/87
--- NOTE | 2019-05-14 20:00 | NUR ---
Patient in room PCU 3016. I have received report from Keely MEYER (from ER) and had the opportunity to ask questions and assume patient care. RN stated to notify MD Maurer about the 12hr troponin level when resulted. Patient has 10 out of 10 pain in the chest area, more to the right side when pressure added. Will continue to monitor patient and await orders.
[2019-05-14] MEDS: morphine 2 MG/ML inj. syringe IV PRN (20:10)
[2019-05-14 23:00] VITALS: BP 108/76
--- NOTE | 2019-05-14 23:20 | NUR ---
Spoke to Dr. Fishman after a phone call from Dr. Maurer worried about the fact that patient had no ACS protocol orders beyond checking troponins. Notified Dr. Fishman that patient was admitted by Dr. Ngo on but that we got the patient to the floor after 1900 and that he didn't have any orders for further anticoagulation. MD gave orders to start patient on 81mg Aspirin PO daily & weigh based Lovenox q12h. Patient was unable to have a beta jerrell ordered due to low HR in the high 50s.
[2019-05-15 00:14] LABS: BASOPHILS # (AUTO) 0.1 X10'3 (0-0.2); EOSINOPHILS # (AUTO) 0.2 X10'3 (0-0.9); EOSINOPHILS % (AUTO) 1.7 % (0-6); HEMATOCRIT 30.3 % (42.0-52.0); LYMPHOCYTES # (AUTO) 3.3 X10'3 (1.1-4.8); LYMPHOCYTES % (AUTO) 28.5 % (21-51); MEAN CORPUSCULAR HEMOGLOBIN 33.5 PG (27.0-31.0); MEAN CORPUSCULAR HGB CONC 32.9 g/dL (33.0-36.5); MEAN CORPUSCULAR VOLUME 101.7 FL (78-98); MEAN PLATELET VOLUME 5.9 FL (7.4-10.4); MONOCYTES # (AUTO) 0.6 X10'3 (0-0.9); MONOCYTES % (AUTO) 4.8 % (2-12); NEUTROPHILS # (AUTO) 7.4 X10'3 (1.8-7.7); PLATELET COUNT 483 X10'3 (140-440); RED BLOOD COUNT 2.98 X10'6 (4.70-6.10); RED CELL DISTRIBUTION WIDTH 15.1 % (11.5-14.5); WHITE BLOOD COUNT 11.6 X10'3 (4.5-11.0)
[2019-05-15] MEDS: morphine 2 MG/ML inj. syringe IV PRN ×2 (00:30→04:35)
[2019-05-15 00:38] LABS: ALBUMIN 2.4 G/DL (3.4-5.0); ANION GAP 7 (8-16); BLOOD UREA NITROGEN 13 MG/DL (7-18); BUN/CREATININE RATIO 11.6 (5.4-32.0); CALCIUM 8.2 MG/DL (8.5-10.1); CHLORIDE 103 MMOL/L (99-107); CREATININE 1.12 MG/DL (0.60-1.10); GLUCOSE 111 MG/DL (70-104); MAGNESIUM 1.4 MG/DL (1.5-2.4); POTASSIUM 4.2 MMOL/L (3.5-5.1); SODIUM 133 MMOL/L (135-145); eGFR 66 ML/MIN
--- NOTE | 2019-05-15 00:40 | NUR ---
Notified Dr. Fishman of critical troponin level of 13.09. Informed MD that Dr. Maurer had previously recommended that if pt's troponin level continued to rise to start patient on an Aggrastat drip. MD agreed and ordered to start Aggrastat drip per protocol. Primary RN also placed a call to Dr. Maurer's answering service due to MD previously having been consulted on the case.
[2019-05-15] MEDS: tirofiban 12.5mg in NS 250mL 250 ML IV SCH ×2 (00:56→17:06)
[2019-05-15 01:02] LABS: PARTIAL THROMBOPLASTIN TIME 36 SECONDS (22-32)
[2019-05-15] MEDS ORDERED: heparin 10,000 units/1 ML INJ IV PRN (01:10)
[2019-05-15] MEDS ORDERED: heparin 25,000 UNIT/250ml bag 250 ML IV SCH (01:10)
--- NOTE | 2019-05-15 01:10 | NUR ---
Received telephone call from Dr. Maurer who stated he had not yet been in to visit the patient but that due to the severe rise in troponin level he wanted to take the patient to heart cath. He gave orders to make the patient NPO and schedule him for an 0800 heart cath and stated he would be in to see patient just prior to the heart cath. Also informed MD of all orders currently in place and he gave orders to dc the Lovenox and start patient on a heparin drip starting at 1000 units/hr without bolus and titrate per protocol. MD also wanted an EKG in the AM & a lipid panel and to start patient on Lipitor. All orders placed.
[2019-05-15 01:43] LABS: CHOL/HDL RATIO 5.3 (0.00-4.99); CHOLESTEROL 163 MG/DL (0-200); HDL CHOLESTEROL 31 MG/DL (35-60); LDL CHOLESTEROL 118 MG/DL (50-100); TRIGLYCERIDES 96 MG/DL (20-135)
[2019-05-15 02:00] VITALS: BP 127/85
[2019-05-15] MEDS ORDERED: atorvastatin 20mg tablet PO ONE (02:00)
[2019-05-15] MEDS: magnesium Cl slow-release 64mg tablet PO PRN ×2 (02:06→17:47)
--- NOTE | 2019-05-15 02:27 | NUR ---
MD Maurer has been notified about 12 hr troponin, MD Fishman aware. Aggrastat and Heparin drip started, Lipitor given, first Magnesium replacement given (1.4 Mag level), and Morphine was given for 10/10 pain.
--- NOTE | 2019-05-15 06:45 | NUR ---
Patient in room PCU 3016. I have received report from MITCH Evangelista and had the opportunity to ask questions and assume patient care.
--- NOTE | 2019-05-15 06:54 | NUR ---
Problems reprioritized. Patient report given, questions answered & plan of care reviewed with Darcie MEYER.
[2019-05-15 07:00] VITALS: BP 154/107
[2019-05-15] MEDS ORDERED: LIDOcaine/PRILOcaine 5gm cream TP ONE (07:00)
[2019-05-15] MEDS ORDERED: nitroGLYCERIN-Tridil 50MG/D5W 250 ML IV ONE (07:57)
[2019-05-15] MEDS ORDERED: midazolam 2 mg/2 ml injection ONE (07:57)
[2019-05-15] MEDS ORDERED: fentaNYL/PF 50MCG/1 ML 2ML syringe ONE (07:58)
[2019-05-15] MEDS ORDERED: LIDOcaine 1% (10mg/ml)w/preservative injection 20ml MDV ONE (07:58)
[2019-05-15] MEDS ORDERED: heparin 1,000unit/ml 10ml vial 10 ML ONE ×2 (07:58→10:10)
--- NOTE | 2019-05-15 07:58 | NUR ---
Called & spoke to Sister Hung & son Chava re heart cath. Son unable to come for procedure, sister to be here within an hour.
[2019-05-15] MEDS ORDERED: iohexol 350 MG/ML 50ML vial IV ONE (07:59)
[2019-05-15] MEDS ORDERED: iohexol 350MG/ML 100ml bottle IV ONE ×3 (07:59→09:38)
[2019-05-15] MEDS ORDERED: verapamil 2.5 mg/ml inj IV ONE (07:59)
[2019-05-15] MEDS: K and/or MAG REPLACEMENT MC SCH (08:00)
[2019-05-15] MEDS ORDERED: enoxaparin 30mg/0.3ml syringe SUBCUT SCH (08:00)
[2019-05-15] MEDS ORDERED: enoxaparin 40mg/0.4ml syringe SUBCUT SCH (08:00)
--- NOTE | 2019-05-15 08:11 | NUR ---
Pt transported to cardiac cath technician with MITCH Romero. Tele box removed & returned to television and radio repairer.
[2019-05-15] MEDS: aspirin 81mg tab.chew PO SCH (08:30)
--- NOTE | 2019-05-15 09:55 | NUR ---
Problems reprioritized. Patient report given, questions answered & plan of care reviewed with MITCH Merchant.
[2019-05-15] MEDS ORDERED: ticagrelor 90mg tablet ONE (10:00)
--- NOTE | 2019-05-15 10:35 | NUR ---
Arrived to ACCE room 313 at this time, stable condition. Post-op vs began. Received call from Dr. Maurer to check in on patient.
[2019-05-15] MEDS ORDERED: normal saline 1000ml 1,000 ML IV ONE (11:05)
[2019-05-15] MEDS: HYDROcodone/acetaminophen 5mg/325mg tablet PO PRN ×3 (11:15→21:03)
[2019-05-15 11:30] VITALS: BP 143/93
[2019-05-15 15:00] VITALS: BP 157/97
--- NOTE | 2019-05-15 15:40 | NUR ---
Pagearmin Maurer, wish to confirm if he wants to continue the aggrastat as well. Waiting on callback.
[2019-05-15 18:00] VITALS: BP 122/81
--- NOTE | 2019-05-15 18:20 | NUR ---
Problems reprioritized. Patient report given, questions answered & plan of care reviewed with Jennifer MEYER.
--- NOTE | 2019-05-15 18:20 | NUR ---
Patient in room MED 313. I have received report from Shonda MEYER and had the opportunity to ask questions and assume patient care.
[2019-05-15] MEDS ORDERED: atorvastatin 20mg tablet PO SCH (21:00)
[2019-05-15] MEDS: atorvastatin 20mg tablet PO SCH (21:02)
[2019-05-15] MEDS: ticagrelor 90mg tablet PO SCH (21:02)
[2019-05-15] MEDS: pantoprazole 40mg Tablet.DR PO SCH (21:03)
[2019-05-15] MEDS: metoprolol tartrate 25mg tablet PO SCH (21:05)
[2019-05-15 23:00] VITALS: BP 133/89
[2019-05-16] MEDS: HYDROcodone/acetaminophen 5mg/325mg tablet PO PRN ×2 (02:30→08:20)
[2019-05-16 03:00] VITALS: BP 128/86
[2019-05-16 05:53] LABS: ALBUMIN 2.2 G/DL (3.4-5.0); ANION GAP 9 (8-16); BLOOD UREA NITROGEN 15 MG/DL (7-18); BUN/CREATININE RATIO 12.2 (5.4-32.0); CALCIUM 7.9 MG/DL (8.5-10.1); CHLORIDE 101 MMOL/L (99-107); CREATININE 1.23 MG/DL (0.60-1.10); GLUCOSE 84 MG/DL (70-104); MAGNESIUM 1.3 MG/DL (1.5-2.4); POTASSIUM 4.2 MMOL/L (3.5-5.1); SODIUM 132 MMOL/L (135-145); TOTAL CARBON DIOXIDE 21.9 MMOL/L (24-32); eGFR 60 ML/MIN
[2019-05-16 06:11] LABS: EOSINOPHILS # (AUTO) 0.2 X10'3 (0-0.9); MONOCYTES # (AUTO) 0.4 X10'3 (0-0.9)
[2019-05-16 06:15] LABS: BASOPHILS # (AUTO) 0.4 X10'3 (0-0.2); BASOPHILS % (AUTO) 3.9 % (0-1); EOSINOPHILS % (AUTO) 2.8 % (0-6); HEMOGLOBIN 9.8 g/dl (14.0-17.9); LYMPHOCYTES # (AUTO) 2.8 X10'3 (1.1-4.8); LYMPHOCYTES % (AUTO) 31.8 % (21-51); MEAN CORPUSCULAR HEMOGLOBIN 34.4 PG (27.0-31.0); MEAN CORPUSCULAR HGB CONC 33.7 g/dL (33.0-36.5); MEAN CORPUSCULAR VOLUME 101.8 FL (78-98); MEAN PLATELET VOLUME 6.4 FL (7.4-10.4); MONOCYTES % (AUTO) 4.2 % (2-12); NEUTROPHILS # (AUTO) 5.1 X10'3 (1.8-7.7); NEUTROPHILS % (AUTO) 57.3 % (42-75); PLATELET COUNT 422 X10'3 (140-440); RED BLOOD COUNT 2.85 X10'6 (4.70-6.10); RED CELL DISTRIBUTION WIDTH 15.5 % (11.5-14.5); WHITE BLOOD COUNT 8.9 X10'3 (4.5-11.0)
--- NOTE | 2019-05-16 06:28 | NUR ---
Problems reprioritized. Patient report given, questions answered & plan of care reviewed with Pancho MEYER.
[2019-05-16 07:02] VITALS: BP 130/93
[2019-05-16] MEDS: pantoprazole 40mg Tablet.DR PO SCH ×2 (07:11→20:40)
[2019-05-16] MEDS: aspirin 81mg tab.chew PO SCH (07:11)
[2019-05-16] MEDS: ticagrelor 90mg tablet PO SCH ×2 (07:11→20:42)
[2019-05-16] MEDS: lisinopril 5mg tablet PO SCH (07:12)
[2019-05-16] MEDS: metoprolol tartrate 25mg tablet PO SCH ×2 (07:12→20:42)
[2019-05-16] MEDS: K and/or MAG REPLACEMENT MC SCH (08:00)
--- NOTE | 2019-05-16 08:23 | NUR ---
PAGER ID: [phone] MESSAGE: [phone]. Pt. was seen and cleared by cardio. They wrote discharge meds. Pancho MEYER [phone]
[2019-05-16] MEDS ORDERED: mag hydrox/Alum hydrox/simeth 30ml oral suspension PO ONE (08:35)
[2019-05-16 11:04] LABS: ALANINE AMINOTRANSFERASE 15 U/L (12-78); ALBUMIN 2.3 G/DL (3.4-5.0); ALBUMIN/GLOBULIN RATIO 0.5 (1.1-1.5); ALKALINE PHOSPHATASE 55 IU/L (46-116); ASPARTATE AMINO TRANSFERASE 63 U/L (10-37); BILIRUBIN,DIRECT 0.1 MG/DL (0-0.3); BILIRUBIN,TOTAL 0.3 MG/DL (0.1-1.0); TOTAL PROTEIN 6.7 G/DL (6.4-8.2)
[2019-05-16 12:49] VITALS: BP 113/82
[2019-05-16 15:00] VITALS: BP 124/82
--- NOTE | 2019-05-16 18:15 | NUR ---
Patient in room MED 313. I have received report from Pancho MEYER and had the opportunity to ask questions and assume patient care.
[2019-05-16] MEDS ORDERED: mag hydrox/Alum hydrox/simeth 30ml oral suspension PO PRN ×2 (18:25→18:35)
--- NOTE | 2019-05-16 18:28 | NUR ---
Problems reprioritized. Patient report given, questions answered & plan of care reviewed with Riddhi MEYER.
[2019-05-16 19:00] VITALS: BP 122/84
[2019-05-16] MEDS ORDERED: FOLI1TAB16 PO (19:18)
[2019-05-16] MEDS ORDERED: LEVO150T8 PO (19:19)
[2019-05-16] MEDS ORDERED: FLO0.4C PO (19:20)
[2019-05-16] MEDS: atorvastatin 20mg tablet PO SCH (20:41)
[2019-05-16 23:00] VITALS: BP 133/81
[2019-05-17] MEDS: HYDROcodone/acetaminophen 5mg/325mg tablet PO PRN ×3 (02:41→13:32)
[2019-05-17 05:30] LABS: BASOPHILS # (AUTO) 0.2 X10'3 (0-0.2); BASOPHILS % (AUTO) 1.4 % (0-1); EOSINOPHILS # (AUTO) 0.2 X10'3 (0-0.9); EOSINOPHILS % (AUTO) 2.1 % (0-6); HEMATOCRIT 29.1 % (42.0-52.0); HEMOGLOBIN 9.8 g/dl (14.0-17.9); LYMPHOCYTES # (AUTO) 3.1 X10'3 (1.1-4.8); LYMPHOCYTES % (AUTO) 27.8 % (21-51); MEAN CORPUSCULAR HEMOGLOBIN 34.2 PG (27.0-31.0); MEAN CORPUSCULAR HGB CONC 33.8 g/dL (33.0-36.5); MEAN CORPUSCULAR VOLUME 101.1 FL (78-98); MEAN PLATELET VOLUME 6.2 FL (7.4-10.4); MONOCYTES # (AUTO) 0.4 X10'3 (0-0.9); MONOCYTES % (AUTO) 3.2 % (2-12); NEUTROPHILS # (AUTO) 7.2 X10'3 (1.8-7.7); NEUTROPHILS % (AUTO) 65.5 % (42-75); PLATELET COUNT 406 X10'3 (140-440); RED BLOOD COUNT 2.88 X10'6 (4.70-6.10); RED CELL DISTRIBUTION WIDTH 15.3 % (11.5-14.5)
[2019-05-17 05:39] LABS: ALBUMIN 2.3 G/DL (3.4-5.0); ANION GAP 7 (8-16); BLOOD UREA NITROGEN 17 MG/DL (7-18); BUN/CREATININE RATIO 13.8 (5.4-32.0); CALCIUM 8.7 MG/DL (8.5-10.1); CHLORIDE 100 MMOL/L (99-107); CREATININE 1.23 MG/DL (0.60-1.10); GLUCOSE 87 MG/DL (70-104); MAGNESIUM 2.2 MG/DL (1.5-2.4); POTASSIUM 4.7 MMOL/L (3.5-5.1); SODIUM 131 MMOL/L (135-145); TOTAL CARBON DIOXIDE 23.9 MMOL/L (24-32); eGFR 60 ML/MIN
[2019-05-17 06:00] VITALS: BP 120/79
--- NOTE | 2019-05-17 06:18 | NUR ---
Problems reprioritized. Patient report given, questions answered & plan of care reviewed with Carlota MEYER.
[2019-05-17] MEDS: K and/or MAG REPLACEMENT MC SCH (08:00)
[2019-05-17] MEDS: lisinopril 5mg tablet PO SCH (08:07)
[2019-05-17] MEDS: pantoprazole 40mg Tablet.DR PO SCH (08:07)
[2019-05-17] MEDS: aspirin 81mg tab.chew PO SCH (08:09)
[2019-05-17] MEDS: metoprolol tartrate 25mg tablet PO SCH (08:09)
[2019-05-17] MEDS: ticagrelor 90mg tablet PO SCH (08:09)
--- NOTE | 2019-05-17 11:11 | NUR ---
SPOKE WITH DR. RODRIGUEZ ABOUT PT "DIZZINESS" ORDERS FOR ORTHOSTATIC VITAL SIGNS WHICH WERE NEGATIVE. WILL CONTINUE WITH DISCHARGE PLAN. MD AWARE OF INTERMITTENT HR LOW 49, SUGGESTED TO DECREASE METOPROLOL. DISCONTINUED NORVASC UPON DISCHARGE. CHRISTIANA AL PRESENT AND SAID TO CALL THE PATIENT A CAB FOR WHEN HE GOES HOME.
[2019-05-17 11:15] VITALS: BP_SYST 119; BP_SYST 123; BP_DIAS 82; BP_DIAS 85
[2019-05-17] MEDS ORDERED: LISI-642 PO (11:30)
[2019-05-17] MEDS ORDERED: ATOR20TA66 PO (11:30)
[2019-05-17] MEDS ORDERED: ASPI-1265 PO (11:30)
[2019-05-17] MEDS ORDERED: METO25TA6 PO (11:30)
[2019-05-17] MEDS ORDERED: TICA90TA PO (11:30)
--- NOTE | 2019-05-17 13:40 | NUR ---
PROVIDED PATIENT WITH DISCHARGE INSTRUCTIONS WELL NEW PRESCRIPTION INFORMATION. PATIENT VERBALIZES UNDERSTANDING OF POST-HOSPITAL ROUTINE REGARDING HIS MEDICATION- HE IS TO TAKE BRILINTA TWICE DAILY FOR ONE MONTH AND THEN SWITCH TO PLAVIX DAILY PER DR. BURNS'S WRITTEN ORDERS IN THE CHART. [facility] B[facility]SIDE DELIVERY SERVICE IN PLACE FOR ALL MEDICATIONS. RN EMPHASIZED THE IMPORTANCE OF TAKING HIS BRILINTA EVERY DAY AND THEN PLAVIX UNTIL DR. BURNS INSTRUCTS HIM OTHERWISE, TO PREVENT FAILURE OF THE STENT AND POSSIBLE . PATIENT VERBALIZES UNDERSTANDING. IV REMOVED, CATHETER INTACT, WITH MINIMAL BLEEDING CLEAN GAUZE APPLIED AND SECURED WITH TAPE. ALL BELONGINGS ACCOUNTED FOR AND PATIENT WILL GO HOME VIA [facility]AXI. PER PATIENT'S HOME NURSE (AT BEDSIDE), FOLLOW UP APPOINTMENT WITH PCP HAS BEEN MADE. PATIENT DENIES ANY FURTHER QUESTIONS OR CONCERNS.
== END 2019-05-17 15:00 | disposition home health service (06) | DRG 174 ==
LOC: ER 11:45 → PCU 3S 19:34 → MED 3N 05-15 10:12
PROVIDERS: ADMIT Internal Medicine; ATTEND Internal Medicine
PROC: 02703DZ Dilation of Coronary Artery, One Artery with Intraluminal Device, Percutaneous Approach (ICD-10-PCS; principal; 2019-05-15)
PROC: 4A023N7 Measurement of Cardiac Sampling and Pressure, Left Heart, Percutaneous Approach (ICD-10-PCS; 2019-05-15)
PROC: B2111ZZ Fluoroscopy of Multiple Coronary Arteries using Low Osmolar Contrast (ICD-10-PCS; 2019-05-15)
PROC: B2151ZZ Fluoroscopy of Left Heart using Low Osmolar Contrast (ICD-10-PCS; 2019-05-15)
PROC: B3101ZZ Fluoroscopy of Thoracic Aorta using Low Osmolar Contrast (ICD-10-PCS; 2019-05-15)
DX: I21.4 Non-ST elevation (NSTEMI) myocardial infarction (principal); E87.1 Hypo-osmolality and hyponatremia; K86.1 Other chronic pancreatitis; B18.2 Chronic viral hepatitis C; I10 Essential (primary) hypertension; J44.9 Chronic obstructive pulmonary disease, unspecified; K21.9 Gastro-esophageal reflux disease without esophagitis; D63.8 Anemia in other chronic diseases classified elsewhere; E03.9 Hypothyroidism, unspecified; E78.5 Hyperlipidemia, unspecified; F17.210 Nicotine dependence, cigarettes, uncomplicated; M16.12 Unilateral primary osteoarthritis, left hip; N40.0 Benign prostatic hyperplasia without lower urinary tract symptoms; Z59.0 Homelessness; Z82.3 Family history of stroke; Z99.3 Dependence on wheelchair; Z56.0 Unemployment, unspecified; Z90.49 Acquired absence of other specified parts of digestive tract; Z71.6 Tobacco abuse counseling; Z71.41 Alcohol abuse counseling and surveillance of alcoholic; Z79.899 Other long term (current) drug therapy
CPT/HCPCS: 36415; 71045; 80048; 80053; 80061; 80076; 81003; 83605; 83690; 83735; 84145; 84484; 85025; 85347; 85379; 85610; 85730; 87040; 87081; 93005; 93306; 93458; 96374; 96375; 97161; 97530; 99152; 99153; 99285; A4620; A6258; C1725; C1769; C1876; C1894; C9113; C9606; G0378; J1644; J1650; J2001; J2250; J2270; J2405; J3010; J3246; J3475; J3490; J7030; Q9967

== ENCOUNTER 2019-05-26 18:58 | Emergency (ER) | payer MEDICAID ==
[~2019-05-26] VITALS: Ht 167.6 cm; Wt 72.0 kg
[~2019-05-26 18:58] MED LIST changes: -ALBU18HF2 INH; -AMLO10TA PO; -APIX5TAB3 PO; +ASPI-1265 PO; +ATOR20TA66 PO; -DIPH1TAB PO; +FLO0.4C PO; -LACT1CAP26 PO; +LEVO150T8 PO; -LEVO75TA7 PO; +LISI-642 PO; +MAGN400C PO; -MAGN400O6 PO; -MAGN400T28 PO; +METO25TA6 PO; -MULT-1179 PO; -PROP10TA10 PO; -SODI1TAB2 PO; +TICA90TA PO
[2019-05-26 19:25] LABS: BASOPHILS # (AUTO) 0.1 X10'3 (0-0.2); BASOPHILS % (AUTO) 1.2 % (0-1); EOSINOPHILS # (AUTO) 0.2 X10'3 (0-0.9); EOSINOPHILS % (AUTO) 1.8 % (0-6); HEMATOCRIT 28.9 % (42.0-52.0); HEMOGLOBIN 9.8 g/dl (14.0-17.9); LYMPHOCYTES # (AUTO) 3.9 X10'3 (1.1-4.8); LYMPHOCYTES % (AUTO) 35.5 % (21-51); MEAN CORPUSCULAR HEMOGLOBIN 34.9 PG (27.0-31.0); MEAN CORPUSCULAR HGB CONC 34.1 g/dL (33.0-36.5); MEAN CORPUSCULAR VOLUME 102.4 FL (78-98); MEAN PLATELET VOLUME 6.5 FL (7.4-10.4); MONOCYTES # (AUTO) 0.6 X10'3 (0-0.9); MONOCYTES % (AUTO) 5.6 % (2-12); NEUTROPHILS # (AUTO) 6.1 X10'3 (1.8-7.7); NEUTROPHILS % (AUTO) 55.9 % (42-75); PLATELET COUNT 359 X10'3 (140-440); RED BLOOD COUNT 2.82 X10'6 (4.70-6.10); RED CELL DISTRIBUTION WIDTH 15.8 % (11.5-14.5)
[2019-05-26 19:37] LABS: ALANINE AMINOTRANSFERASE 20 U/L (12-78); ALBUMIN/GLOBULIN RATIO 0.6 (1.1-1.5); ALKALINE PHOSPHATASE 68 IU/L (46-116); ANION GAP 13 (8-16); ASPARTATE AMINO TRANSFERASE 28 U/L (10-37); BILIRUBIN,TOTAL 0.4 MG/DL (0.1-1.0); BLOOD UREA NITROGEN 19 MG/DL (7-18); BUN/CREATININE RATIO 15.2 (5.4-32.0); CALCIUM 8.8 MG/DL (8.5-10.1); CHLORIDE 97 MMOL/L (99-107); CREATININE 1.25 MG/DL (0.60-1.10); GLUCOSE 80 MG/DL (70-104); POTASSIUM 4.6 MMOL/L (3.5-5.1); SODIUM 129 MMOL/L (135-145); TOTAL CARBON DIOXIDE 19.3 MMOL/L (24-32); TOTAL PROTEIN 8.3 G/DL (6.4-8.2); eGFR 59 ML/MIN
[2019-05-26 19:52] LABS: PARTIAL THROMBOPLASTIN TIME 29 SECONDS (22-32)
[2019-05-26] MEDS ORDERED: LIDOcaine Viscous 15ml cup PO ONE (20:15)
[2019-05-26] MEDS ORDERED: famotidine 20mg tablet PO ONE (20:15)
[2019-05-26] MEDS ORDERED: mag hydrox/Alum hydrox/simeth 30ml oral suspension PO ONE (20:15)
[2019-05-26] MEDS ORDERED: nitroGLYCERIN 0.4mg SUBLingual tab SL PRN (20:15)
--- NOTE | 2019-05-26 22:09 | NUR ---
Discussed pt's BP with PREET Amanda; new order received for Lisinopril 5mg PO.
[2019-05-26] MEDS ORDERED: lisinopril 10 MG tablet PO ONE (22:10)
[2019-05-26] MEDS ORDERED: lisinopril 5mg tablet PO ONE (22:15)
--- NOTE | 2019-05-26 22:25 | NUR ---
[place] attorney Den called i for pt who is returning to [facility].
--- NOTE | 2019-05-26 22:29 | NUR ---
Per Leon @ [facility], pt to stop by Office for alex card upon his arrival. Pt informed he is expected & Jose will assist if needed.
[2019-05-26 23:22] VITALS: BP 177/111
== END 2019-05-26 23:27 | disposition home or self-care (01) ==
LOC: ER 18:59
DX: R07.89 Other chest pain (principal); I25.10 Atherosclerotic heart disease of native coronary artery without angina pectoris; I10 Essential (primary) hypertension; K21.9 Gastro-esophageal reflux disease without esophagitis; E03.9 Hypothyroidism, unspecified; G89.29 Other chronic pain; F17.200 Nicotine dependence, unspecified, uncomplicated; Z98.890 Other specified postprocedural states; Z90.49 Acquired absence of other specified parts of digestive tract; Z59.0 Homelessness; Z56.0 Unemployment, unspecified; Z88.2 Allergy status to sulfonamides; Z88.1 Allergy status to other antibiotic agents; Z79.82 Long term (current) use of aspirin; Z79.899 Other long term (current) drug therapy
CPT/HCPCS: 36415; 71045; 80053; 84484; 85025; 85610; 85730; 93005; 99284

== ENCOUNTER 2019-05-31 09:59 | Emergency (ER) | payer MEDICAID ==
[~2019-05-31] VITALS: Ht 167.6 cm; Wt 72.7 kg
[2019-05-31] MEDS ORDERED: normal saline 1000ML IV soln IVB ONE ×2 (10:15→11:00)
[2019-05-31 10:31] LABS: BASOPHILS # (AUTO) 0.1 X10'3 (0-0.2); BASOPHILS % (AUTO) 1.4 % (0-1); EOSINOPHILS # (AUTO) 0.3 X10'3 (0-0.9); EOSINOPHILS % (AUTO) 3.9 % (0-6); HEMOGLOBIN 10.5 g/dl (14.0-17.9); LYMPHOCYTES # (AUTO) 3.4 X10'3 (1.1-4.8); LYMPHOCYTES % (AUTO) 41.1 % (21-51); MEAN CORPUSCULAR HEMOGLOBIN 34.2 PG (27.0-31.0); MEAN CORPUSCULAR VOLUME 100.5 FL (78-98); MEAN PLATELET VOLUME 5.9 FL (7.4-10.4); MONOCYTES # (AUTO) 0.4 X10'3 (0-0.9); MONOCYTES % (AUTO) 5.4 % (2-12); NEUTROPHILS # (AUTO) 3.9 X10'3 (1.8-7.7); NEUTROPHILS % (AUTO) 48.2 % (42-75); PLATELET COUNT 479 X10'3 (140-440); RED BLOOD COUNT 3.08 X10'6 (4.70-6.10); RED CELL DISTRIBUTION WIDTH 16.1 % (11.5-14.5); WHITE BLOOD COUNT 8.2 X10'3 (4.5-11.0)
[2019-05-31 10:47] LABS: ALANINE AMINOTRANSFERASE 25 U/L (12-78); ALBUMIN 3.1 G/DL (3.4-5.0); ALBUMIN/GLOBULIN RATIO 0.6 (1.1-1.5); ALKALINE PHOSPHATASE 69 IU/L (46-116); ANION GAP 11 (8-16); ASPARTATE AMINO TRANSFERASE 28 U/L (10-37); BILIRUBIN,TOTAL 0.4 MG/DL (0.1-1.0); BLOOD UREA NITROGEN 10 MG/DL (7-18); BUN/CREATININE RATIO 9.1 (5.4-32.0); CALCIUM 8.4 MG/DL (8.5-10.1); CHLORIDE 91 MMOL/L (99-107); GLUCOSE 95 MG/DL (70-104); LIPASE 123 U/L (73-393); POTASSIUM 4.1 MMOL/L (3.5-5.1); SODIUM 122 MMOL/L (135-145); TOTAL CARBON DIOXIDE 19.8 MMOL/L (24-32); TOTAL PROTEIN 7.9 G/DL (6.4-8.2); eGFR 68 ML/MIN
[2019-05-31 10:58] VITALS: BP 124/75
[2019-05-31 11:54] LABS: CLARITY,URINE CLEAR (Clear); COLOR,URINE STRAW (Yellow); GLUCOSE, URINE NEGATIVE (Neg); KETONES,URINE NEGATIVE (Neg); LEUKOCYTE ESTERASE ,URINE NEGATIVE (Neg); NITRITES, URINE NEGATIVE (Neg); OCCULT BLOOD,URINE NEGATIVE (Neg); PH,URINE 5.5 (4.8-8.0); PROTEIN,URINE NEGATIVE (Neg); UROBILINOGEN,URINE 0.2 E.U/dL (0.2-1.0)
[2019-05-31 11:59] LABS: UA COLLECTION TYPE CLN CATCH MIDSTREAM
== END 2019-05-31 11:58 | disposition home or self-care (01) ==
LOC: ER 10:01
DX: E87.1 Hypo-osmolality and hyponatremia (principal); F10.20 Alcohol dependence, uncomplicated; I10 Essential (primary) hypertension; K21.9 Gastro-esophageal reflux disease without esophagitis; E03.9 Hypothyroidism, unspecified; G89.29 Other chronic pain; Z59.0 Homelessness; Z56.0 Unemployment, unspecified; Z98.890 Other specified postprocedural states; Z90.49 Acquired absence of other specified parts of digestive tract; Z88.2 Allergy status to sulfonamides; Z88.1 Allergy status to other antibiotic agents; Z79.82 Long term (current) use of aspirin; Z79.899 Other long term (current) drug therapy
CPT/HCPCS: 36415; 71045; 80053; 81003; 83690; 85025; 93005; 99284; J7030

== ENCOUNTER 2019-10-05 11:44 | Emergency (ER) | payer MEDICAID ==
[~2019-10-05] VITALS: Ht 167.6 cm; Wt 72.7 kg
[~2019-10-05 11:44] MED LIST changes: -OMEP20CA11 PO; +OMEP20CA15 PO
[2019-10-05 12:50] LABS: BASOPHILS # (AUTO) 0.1 X10'3 (0-0.2); BASOPHILS % (AUTO) 0.9 % (0-1); EOSINOPHILS % (AUTO) 0.2 % (0-6); HEMATOCRIT 39.2 % (42.0-52.0); HEMOGLOBIN 13.2 g/dl (14.0-17.9); LYMPHOCYTES # (AUTO) 2.1 X10'3 (1.1-4.8); LYMPHOCYTES % (AUTO) 23.2 % (21-51); MEAN CORPUSCULAR HEMOGLOBIN 32.1 PG (27.0-31.0); MEAN CORPUSCULAR HGB CONC 33.7 g/dL (33.0-36.5); MEAN CORPUSCULAR VOLUME 95.3 FL (78-98); MONOCYTES # (AUTO) 0.5 X10'3 (0-0.9); MONOCYTES % (AUTO) 5.8 % (2-12); NEUTROPHILS # (AUTO) 6.4 X10'3 (1.8-7.7); NEUTROPHILS % (AUTO) 69.9 % (42-75); PLATELET COUNT 330 X10'3 (140-440); RED BLOOD COUNT 4.12 X10'6 (4.70-6.10); RED CELL DISTRIBUTION WIDTH 13.9 % (11.5-14.5); WHITE BLOOD COUNT 9.1 X10'3 (4.5-11.0)
[2019-10-05 13:09] LABS: ALANINE AMINOTRANSFERASE 66 U/L (12-78); ALBUMIN 3.8 G/DL (3.4-5.0); ALBUMIN/GLOBULIN RATIO 0.8 (1.1-1.5); ALKALINE PHOSPHATASE 162 IU/L (46-116); ANION GAP 12 (8-16); ASPARTATE AMINO TRANSFERASE 58 U/L (10-37); BILIRUBIN,TOTAL 0.8 MG/DL (0.1-1.0); BLOOD UREA NITROGEN 11 MG/DL (7-18); BUN/CREATININE RATIO 9.7 (5.4-32.0); CALCIUM 9.2 MG/DL (8.5-10.1); CHLORIDE 99 MMOL/L (99-107); CREATININE 1.13 MG/DL (0.60-1.10); GLUCOSE 106 MG/DL (70-104); LIPASE 94 U/L (73-393); POTASSIUM 3.9 MMOL/L (3.5-5.1); SODIUM 134 MMOL/L (135-145); TOTAL CARBON DIOXIDE 23.4 MMOL/L (24-32); TOTAL PROTEIN 8.6 G/DL (6.4-8.2); eGFR 66 ML/MIN
[2019-10-05] MEDS ORDERED: oseltamivir phos 75mg capsule PO ONE (15:35)
[2019-10-05] MEDS ORDERED: normal saline 1000ML IV soln IVB ONE (15:35)
[2019-10-05] MEDS ORDERED: ketorolac tromethamine 15mg/ml inj. IV ONE (15:35)
[2019-10-05] MEDS ORDERED: TAM75C PO (16:42)
[2019-10-05 17:28] VITALS: BP 146/92
--- NOTE | 2019-10-05 18:04 | NUR ---
Pt is wheelchair bound and is adking to use a bedside comode one more time before i put pt in Hallway 13. pt is dc ready, friends are bringing pt's wheelchair.
== END 2019-10-05 18:37 | disposition home or self-care (01) ==
LOC: ER 11:45
DX: B34.9 Viral infection, unspecified (principal); R05 Cough; R50.9 Fever, unspecified; R51 Headache; R10.84 Generalized abdominal pain; R35.0 Frequency of micturition; R30.0 Dysuria; I10 Essential (primary) hypertension; K21.9 Gastro-esophageal reflux disease without esophagitis; E03.9 Hypothyroidism, unspecified; F10.99 Alcohol use, unspecified with unspecified alcohol-induced disorder; Z86.19 Personal history of other infectious and parasitic diseases; Z90.49 Acquired absence of other specified parts of digestive tract; Z59.0 Homelessness; Z56.0 Unemployment, unspecified; Z88.2 Allergy status to sulfonamides; Z88.8 Allergy status to other drugs, medicaments and biological substances; Z79.82 Long term (current) use of aspirin; Z79.899 Other long term (current) drug therapy; Y90.9 Presence of alcohol in blood, level not specified
CPT/HCPCS: 36415; 71045; 80053; 83690; 85025; 87502; 87503; 93005; 96361; 96374; 99284; J1885; J7030

== ENCOUNTER 2019-11-24 00:29 | Emergency (ER) | payer MEDICAID ==
[~2019-11-24] VITALS: Ht 167.6 cm; Wt 72.7 kg
[2019-11-24] MEDS ORDERED: ketorolac trometh. 30mg/ml inj. IV ONE (00:50)
[2019-11-24] MEDS ORDERED: normal saline 1000ml 1,000 ML IV ONE ×2 (00:50→02:10)
[2019-11-24] MEDS ORDERED: ipratropium/albuterol 3ml nebule NEB ONE (00:50)
[2019-11-24] MEDS ORDERED: ondansetron/PF 4mg/2ml inj IV ONE (01:30)
[2019-11-24 01:33] LABS: BASOPHILS # (AUTO) 0.1 X10'3 (0-0.2); BASOPHILS % (AUTO) 0.8 % (0-1); EOSINOPHILS % (AUTO) 0.2 % (0-6); HEMOGLOBIN 12.7 g/dl (14.0-17.9); LYMPHOCYTES # (AUTO) 1.1 X10'3 (1.1-4.8); LYMPHOCYTES % (AUTO) 12.7 % (21-51); MEAN CORPUSCULAR HEMOGLOBIN 33.1 PG (27.0-31.0); MEAN CORPUSCULAR HGB CONC 34.2 g/dL (33.0-36.5); MEAN CORPUSCULAR VOLUME 96.6 FL (78-98); MEAN PLATELET VOLUME 6.2 FL (7.4-10.4); MONOCYTES # (AUTO) 0.6 X10'3 (0-0.9); MONOCYTES % (AUTO) 6.6 % (2-12); NEUTROPHILS # (AUTO) 6.8 X10'3 (1.8-7.7); NEUTROPHILS % (AUTO) 79.7 % (42-75); PLATELET COUNT 226 X10'3 (140-440); RED BLOOD COUNT 3.83 X10'6 (4.70-6.10); WHITE BLOOD COUNT 8.5 X10'3 (4.5-11.0)
[2019-11-24 01:42] LABS: PARTIAL THROMBOPLASTIN TIME 30 SECONDS (22-32)
[2019-11-24 01:44] LABS: ALANINE AMINOTRANSFERASE 44 U/L (12-78); ALBUMIN 3.5 G/DL (3.4-5.0); ALBUMIN/GLOBULIN RATIO 0.8 (1.1-1.5); ALKALINE PHOSPHATASE 97 IU/L (46-116); ANION GAP 14 (8-16); ASPARTATE AMINO TRANSFERASE 52 U/L (10-37); BILIRUBIN,TOTAL 0.3 MG/DL (0.1-1.0); BLOOD UREA NITROGEN 12 MG/DL (7-18); BUN/CREATININE RATIO 10.6 (5.4-32.0); CHLORIDE 101 MMOL/L (99-107); CREATININE 1.13 MG/DL (0.60-1.10); GLUCOSE 85 MG/DL (70-104); POTASSIUM 3.7 MMOL/L (3.5-5.1); SODIUM 133 MMOL/L (135-145); TOTAL CARBON DIOXIDE 17.7 MMOL/L (24-32); TOTAL PROTEIN 8.1 G/DL (6.4-8.2); eGFR 66 ML/MIN
[2019-11-24] MEDS ORDERED: acetaminophen 325mg tablet PO ONE (02:05)
[2019-11-24] MEDS ORDERED: aspirin 325mg tablet PO ONE (02:10)
[2019-11-24] MEDS ORDERED: proCHLORperazine 10 MG/2 ml inj IV ONE (02:10)
[2019-11-24] MEDS ORDERED: MELO-100 PO (02:12)
[2019-11-24] MEDS ORDERED: TAM75C PO (02:12)
[2019-11-24] MEDS ORDERED: ACET-1025 PO (02:12)
[2019-11-24] MEDS ORDERED: oseltamivir phos 75mg capsule PO ONE (02:15)
[2019-11-24] MEDS ORDERED: albuterol 2.5 MG/3 ML nebule NEB ONE (03:40)
[2019-11-24 04:02] VITALS: BP 125/78
== END 2019-11-24 04:34 | disposition home or self-care (01) ==
LOC: ER 00:29
DX: R05 Cough (principal); J11.1 Influenza due to unidentified influenza virus with other respiratory manifestations; R42 Dizziness and giddiness; I10 Essential (primary) hypertension; K21.9 Gastro-esophageal reflux disease without esophagitis; E03.9 Hypothyroidism, unspecified; G89.29 Other chronic pain; Z86.19 Personal history of other infectious and parasitic diseases; Z90.49 Acquired absence of other specified parts of digestive tract; Z98.890 Other specified postprocedural states; Z59.0 Homelessness; Z56.0 Unemployment, unspecified; Z88.2 Allergy status to sulfonamides; Z88.8 Allergy status to other drugs, medicaments and biological substances; Z79.82 Long term (current) use of aspirin; Z79.899 Other long term (current) drug therapy
CPT/HCPCS: 36415; 71045; 80053; 83605; 84145; 84484; 85025; 85610; 85730; 87040; 87502; 87503; 93005; 94640; 96361; 96374; 96375; 99284; J1885; J2405; J7030; 94760

== ENCOUNTER 2020-06-15 04:24 | Inpatient (IN) | payer MEDICAID ==
[~2020-06-15] VITALS: Ht 167.6 cm; Wt 160.0 kg
[~2020-06-15 04:24] MED LIST changes: +MELO-100 PO
[2020-06-15] MEDS ORDERED: normal saline 1000ML IV soln IVB ONE (04:35)
[2020-06-15] MEDS ORDERED: ondansetron/PF 4mg/2ml inj IV ONE (04:35)
[2020-06-15 04:47] LABS: EOSINOPHILS # (AUTO) 0.2 X10'3 (0-0.9); EOSINOPHILS % (AUTO) 1.8 % (0-6); HEMOGLOBIN 12.2 g/dl (14.0-17.9); LYMPHOCYTES # (AUTO) 2.7 X10'3 (1.1-4.8); MEAN PLATELET VOLUME 5.8 FL (7.4-10.4)
[2020-06-15 04:49] LABS: BASOPHILS % (AUTO) 0.3 % (0-1); HEMATOCRIT 36.1 % (42.0-52.0); LYMPHOCYTES % (AUTO) 22.2 % (21-51); MEAN CORPUSCULAR HEMOGLOBIN 31.4 PG (27.0-31.0); MEAN CORPUSCULAR HGB CONC 33.9 g/dL (33.0-36.5); MEAN CORPUSCULAR VOLUME 92.7 FL (78-98); MONOCYTES # (AUTO) 0.5 X10'3 (0-0.9); MONOCYTES % (AUTO) 4.2 % (2-12); NEUTROPHILS # (AUTO) 8.7 X10'3 (1.8-7.7); NEUTROPHILS % (AUTO) 71.5 % (42-75); PLATELET COUNT 189 X10'3 (140-440); RED BLOOD COUNT 3.89 X10'6 (4.70-6.10); RED CELL DISTRIBUTION WIDTH 15.1 % (11.5-14.5); WHITE BLOOD COUNT 12.2 X10'3 (4.5-11.0)
[2020-06-15] MEDS: morphine 4 MG/ML inj SYRINge IV PRN ×2 (04:53→06:46)
[2020-06-15 04:55] LABS: ALANINE AMINOTRANSFERASE 57 U/L (12-78); ALBUMIN 4.1 G/DL (3.4-5.0); ALBUMIN/GLOBULIN RATIO 0.9 (1.1-1.5); ALKALINE PHOSPHATASE 96 IU/L (46-116); ANION GAP 10 (8-16); ASPARTATE AMINO TRANSFERASE 134 U/L (10-37); BILIRUBIN,TOTAL 1.3 MG/DL (0.1-1.0); BLOOD UREA NITROGEN 15 MG/DL (7-18); BUN/CREATININE RATIO 10.6 (5.4-32.0); CALCIUM 8.9 MG/DL (8.5-10.1); CHLORIDE 99 MMOL/L (99-107); CREATININE 1.41 MG/DL (0.60-1.10); GLUCOSE 90 MG/DL (70-104); POTASSIUM 3.2 MMOL/L (3.5-5.1); SODIUM 133 MMOL/L (135-145); TOTAL CARBON DIOXIDE 23.8 MMOL/L (24-32); TOTAL PROTEIN 8.8 G/DL (6.4-8.2); eGFR 51 ML/MIN
[2020-06-15 04:58] LABS: TROPONIN I < 0.04 NG/ML (0.0-0.05)
[2020-06-15 05:09] LABS: ETHANOL < 0.010 GM/DL (0.0-0.010)
[2020-06-15 05:24] LABS: LIPASE 3215 U/L (73-393)
[2020-06-15] MEDS ORDERED: potassium Cl 20 mEq SR tablet PO STA (05:24)
[2020-06-15] MEDS ORDERED: thiamine inj. 100 MG in normal saline 100ml IV soln 99 ML IV ONE (05:30)
[2020-06-15] MEDS ORDERED: magnesium 2GM in 50ml NS 50 ML IV ONE (05:30)
[2020-06-15] MEDS ORDERED: phenobarbital inj 260 MG in normal saline 100ml IV soln 100 ML IV ONE (05:30)
[2020-06-15 06:40] LABS: MAGNESIUM 1.1 MG/DL (1.5-2.4)
[2020-06-15] MEDS ORDERED: haloperidol 5mg tablet PO PRN (07:15)
[2020-06-15] MEDS ORDERED: mag hydrox/Alum hydrox/simeth 30ml oral suspension PO PRN (07:15)
[2020-06-15] MEDS ORDERED: HYDROcodone/acetaminophen 5mg/325mg tablet PO PRN (07:15)
[2020-06-15] MEDS ORDERED: ondansetron/PF 4mg/2ml inj IV PRN (07:15)
[2020-06-15] MEDS ORDERED: acetaminophen 650mg rectal suppository RC PRN (07:15)
[2020-06-15] MEDS ORDERED: acetaminophen 325mg tablet PO PRN ×2 (07:15)
[2020-06-15] MEDS ORDERED: potassium Cl 20 mEq SR tablet PO PRN (07:15)
[2020-06-15] MEDS ORDERED: magnesium Cl slow-release 64mg tablet PO PRN (07:15)
[2020-06-15] MEDS ORDERED: bisacodyl 10mg suppository rectal RC PRN (07:15)
[2020-06-15] MEDS ORDERED: potassium CL 10mEq/100ml bag 100 ML IV PRN ×2 (07:15)
[2020-06-15] MEDS ORDERED: diphenhydrAMINE 25mg capsule PO PRN (07:15)
[2020-06-15] MEDS ORDERED: magnesium hydroxide 30ml (MOM) UD suspension PO PRN (07:15)
[2020-06-15] MEDS ORDERED: haloperidol lactate 5mg/ml inj IM PRN (07:15)
[2020-06-15] MEDS ORDERED: magnesium 4gm in 100ml NS 100 ML IV PRN (07:15)
[2020-06-15] MEDS ORDERED: morphine 2 MG/ML inj. syringe IV PRN (07:15)
[2020-06-15] MEDS ORDERED: thiamine 100mg/ml 2ml inj. IV ONE (07:15)
[2020-06-15] MEDS ORDERED: magnesium 2GM in 50ml NS 50 ML IV PRN (07:15)
[2020-06-15] MEDS ORDERED: dextrose 50%-water 50ml dispensing syringe IV PRN (07:15)
[2020-06-15 07:51] LABS: CLARITY,URINE CLEAR (Clear); COLOR,URINE STRAW (Yellow); GLUCOSE, URINE NEGATIVE (Neg); KETONES,URINE NEGATIVE (Neg); LEUKOCYTE ESTERASE ,URINE NEGATIVE (Neg); NITRITES, URINE NEGATIVE (Neg); OCCULT BLOOD,URINE MODERATE (Neg); PH,URINE 6.5 (4.8-8.0); PROTEIN,URINE TRACE mg/dl (Neg); UROBILINOGEN,URINE 0.2 E.U/dL (0.2-1.0)
[2020-06-15 07:52] LABS: UA COLLECTION TYPE CLN CATCH MIDSTREAM
[2020-06-15] MEDS: K and/or MAG REPLACEMENT MC SCH ×2 (08:00→19:46)
[2020-06-15 08:06] LABS: BACTERIA,URINE FEW /HPF (Neg); SQUAMOUS EPITHELIAL CELL,UR FEW /LPF (FEW)
[2020-06-15 08:07] LABS: RBC,URINE 0-2 /HPF (0-2); WBC,URINE 0-4 /HPF (0-4)
[2020-06-15 08:20] LABS: HEMOGLOBIN A1C 5.9 % (4.5-6.2)
[2020-06-15] MEDS: thiamine 100mg tablet PO SCH (09:14)
[2020-06-15] MEDS: dextrose 5%-normal saline 1,000 ML IV SCH ×2 (09:14→16:31)
[2020-06-15] MEDS: folic acid 1mg tablet PO SCH (09:14)
[2020-06-15] MEDS: multivitamins, therapeutics tablet PO SCH (09:15)
[2020-06-15] MEDS: HYDROcodone/acetaminophen 10/325mg tab PO PRN (09:15)
[2020-06-15] MEDS: heparin, porcine 5000 units/ml vial SQ SCH ×2 (09:16→19:32)
--- NOTE | 2020-06-15 10:53 | NUR ---
Report received from MITCH Blount in ED.
--- NOTE | 2020-06-15 10:55 | NUR ---
Pt arrived to surgical floor via gurney, transported by RN. Pt transferred to surgical bed with all belongings, call light within reach.
[2020-06-15 11:28] VITALS: BP 140/89
[2020-06-15] MEDS: morphine 2 MG/ML inj. syringe IV PRN ×3 (12:15→21:21)
--- NOTE | 2020-06-15 18:29 | NUR ---
Problems reprioritized. Patient report given, questions answered & plan of care reviewed with MITCH Guallpa.
--- NOTE | 2020-06-15 18:29 | NUR ---
Received report from primary care nurse Elana MEYER. Assumed patient care. Patient is awake and alert on room air in no apparent distress. Call light and items of frequent use within reach. Will continue to monitor for changes.
[2020-06-15 19:00] VITALS: BP 126/83
[2020-06-15] MEDS: LORazepam 2 mg/ml vial IV PRN (19:30)
[2020-06-16] MEDS: dextrose 5%-normal saline 1,000 ML IV SCH ×2 (00:15→10:01)
[2020-06-16 00:21] VITALS: BP 128/83
[2020-06-16] MEDS: morphine 2 MG/ML inj. syringe IV PRN ×5 (01:19→18:15)
[2020-06-16 05:49] LABS: BASOPHILS # (AUTO) 0.1 X10'3 (0-0.2); BASOPHILS % (AUTO) 1.1 % (0-1); EOSINOPHILS # (AUTO) 0.3 X10'3 (0-0.9); EOSINOPHILS % (AUTO) 6.6 % (0-6); HEMATOCRIT 35.7 % (42.0-52.0); LYMPHOCYTES # (AUTO) 1.1 X10'3 (1.1-4.8); LYMPHOCYTES % (AUTO) 22.2 % (21-51); MEAN CORPUSCULAR HEMOGLOBIN 31.6 PG (27.0-31.0); MEAN CORPUSCULAR HGB CONC 33.6 g/dL (33.0-36.5); MEAN CORPUSCULAR VOLUME 94.3 FL (78-98); MEAN PLATELET VOLUME 6.1 FL (7.4-10.4); MONOCYTES # (AUTO) 0.2 X10'3 (0-0.9); MONOCYTES % (AUTO) 4.8 % (2-12); NEUTROPHILS # (AUTO) 3.3 X10'3 (1.8-7.7); NEUTROPHILS % (AUTO) 65.3 % (42-75); PLATELET COUNT 134 X10'3 (140-440); RED BLOOD COUNT 3.78 X10'6 (4.70-6.10); RED CELL DISTRIBUTION WIDTH 15.6 % (11.5-14.5)
[2020-06-16 06:11] LABS: ALANINE AMINOTRANSFERASE 129 U/L (12-78); ALBUMIN 3.2 G/DL (3.4-5.0); ALBUMIN/GLOBULIN RATIO 0.7 (1.1-1.5); ALKALINE PHOSPHATASE 219 IU/L (46-116); AMYLASE 225 U/L (25-115); ANION GAP 10 (8-16); ASPARTATE AMINO TRANSFERASE 391 U/L (10-37); BLOOD UREA NITROGEN 10 MG/DL (7-18); BUN/CREATININE RATIO 9.3 (5.4-32.0); CALCIUM 7.5 MG/DL (8.5-10.1); CHLORIDE 100 MMOL/L (99-107); CHOL/HDL RATIO 3.4 (0.00-4.99); CHOLESTEROL 82 MG/DL (0-200); CREATININE 1.08 MG/DL (0.60-1.10); GLUCOSE 89 MG/DL (70-104); HDL CHOLESTEROL 24 MG/DL (35-60); LDL CHOLESTEROL 48 MG/DL (50-100); LIPASE 558 U/L (73-393); MAGNESIUM 1.2 MG/DL (1.5-2.4); PHOSPHORUS 2.6 MG/DL (2.3-4.5); SODIUM 135 MMOL/L (135-145); TOTAL CARBON DIOXIDE 24.9 MMOL/L (24-32); TOTAL PROTEIN 7.6 G/DL (6.4-8.2); TRIGLYCERIDES 110 MG/DL (20-135); eGFR 69 ML/MIN
--- NOTE | 2020-06-16 06:20 | NUR ---
Reported off to Fam MEYER. Patient is awake and alert on room air. Call light and items of frequent use within reach.
--- NOTE | 2020-06-16 06:25 | NUR ---
Patient in room [facility] 356. I have received report from Saloni MEYER and had the opportunity to ask questions and assume patient care.
[2020-06-16 07:00] VITALS: BP 130/83
[2020-06-16] MEDS: thiamine 100mg tablet PO SCH (07:48)
[2020-06-16] MEDS: folic acid 1mg tablet PO SCH (07:49)
[2020-06-16] MEDS: multivitamins, therapeutics tablet PO SCH (07:49)
[2020-06-16] MEDS: potassium Cl 20 mEq SR tablet PO PRN ×3 (07:49→19:46)
[2020-06-16] MEDS: heparin, porcine 5000 units/ml vial SQ SCH ×2 (07:51→19:44)
[2020-06-16] MEDS: K and/or MAG REPLACEMENT MC SCH ×2 (08:00→19:47)
--- NOTE | 2020-06-16 08:50 | NUR ---
Patient requesting pneumonia vaccine at this time. Patient states "Yeah, I declined it before but I think I need it this time because I feel like I might have pneumonia!". Patient complaining of chills so I checked his oral temp- it was 99.6F. Patient denies short of breath but complaining of being weak.
--- NOTE | 2020-06-16 09:21 | NUR ---
Paged Dr. Babb PAGER ID: [phone] MESSAGE: Surgical Fl Fam MEYER ext [phone]. RE: Caleb Knapp. Patient complaining of chills and dry cough, oral temp 99.4F. WBC 5.0 and no chest xray done since admission
[2020-06-16 11:00] VITALS: BP 118/78
[2020-06-16] MEDS: ticagrelor 90mg tablet PO SCH ×2 (11:35→19:46)
[2020-06-16] MEDS: lisinopril 5mg tablet PO SCH (11:35)
[2020-06-16] MEDS: levoTHYROXINE 100mcg tablet PO SCH (11:35)
[2020-06-16] MEDS: metoprolol tartrate 25mg tablet PO SCH ×2 (11:36→19:46)
[2020-06-16 12:26] LABS: URINE AMPHETAMINE SCREEN NEGATIVE (Neg); URINE BARBITUATE SCREEN POSITIVE (Neg); URINE BENZODIAZEPINES SCREEN NEGATIVE (Neg); URINE CANNABINOID SCREEN NEGATIVE (Neg); URINE COCAINE SCREEN NEGATIVE (Neg); URINE METHADONE SCREEN NEGATIVE (Neg); URINE OPIATE SCREEN POSITIVE (Neg); URINE PHENCYCLIDINE SCREEN NEGATIVE (Neg)
--- NOTE | 2020-06-16 17:39 | NUR ---
Paged Dr. Babb PAGER ID: [phone] MESSAGE: Surgical Fam RN ext [phone]. RE: Caleb Knapp. Patient has clear liq diet. Do you want to keep D5NS @ 125ml/hr?
--- NOTE | 2020-06-16 18:00 | NUR ---
Patient had dark green BM. Patient admitted he went to the restroom by himself holding onto the bed and door. I told patient that is unsafe as he can fall because he has unsteady gait. Patient stated that he could not hold it that he had to go. I told patient to use call light if he needs to go to the restroom and someone will be there to help him. Bed alarm was set on for safety.
--- NOTE | 2020-06-16 18:30 | NUR ---
Received report from primary care nurse Fam MEYER. Patient is awake and alert on room air. In no apparent distress using the restroom. Patient verbalized, "I will pull the cord when Im done." Will continue to monitor for changes.
--- NOTE | 2020-06-16 18:37 | NUR ---
Problems reprioritized. Patient report given, questions answered & plan of care reviewed with Saloni MEYER.
[2020-06-16 19:00] VITALS: BP 117/88
[2020-06-16] MEDS: HYDROcodone/acetaminophen 10/325mg tab PO PRN (19:44)
[2020-06-16] MEDS: LORazepam 2 mg/ml vial IV PRN (19:44)
[2020-06-16] MEDS: magnesium oxide 400mg tablet PO SCH (19:48)
[2020-06-16] MEDS: atorvastatin 20mg tablet PO SCH (20:16)
[2020-06-17] VITALS: BP 117/88
[2020-06-17] MEDS: LORazepam 2 mg/ml vial IV PRN ×6 (01:46→21:30)
[2020-06-17] MEDS: morphine 2 MG/ML inj. syringe IV PRN ×2 (01:47→20:11)
[2020-06-17 02:15] LABS: BASOPHILS # (AUTO) 0.1 X10'3 (0-0.2); BASOPHILS % (AUTO) 1.5 % (0-1); EOSINOPHILS # (AUTO) 0.4 X10'3 (0-0.9); EOSINOPHILS % (AUTO) 5.7 % (0-6); HEMOGLOBIN 11.5 g/dl (14.0-17.9); LYMPHOCYTES # (AUTO) 1.6 X10'3 (1.1-4.8); LYMPHOCYTES % (AUTO) 25.7 % (21-51); MEAN CORPUSCULAR HEMOGLOBIN 32.2 PG (27.0-31.0); MEAN CORPUSCULAR HGB CONC 33.9 g/dL (33.0-36.5); MEAN CORPUSCULAR VOLUME 94.8 FL (78-98); MEAN PLATELET VOLUME 6.2 FL (7.4-10.4); MONOCYTES # (AUTO) 0.3 X10'3 (0-0.9); MONOCYTES % (AUTO) 5.1 % (2-12); NEUTROPHILS # (AUTO) 3.8 X10'3 (1.8-7.7); PLATELET COUNT 123 X10'3 (140-440); RED BLOOD COUNT 3.58 X10'6 (4.70-6.10); RED CELL DISTRIBUTION WIDTH 15.5 % (11.5-14.5); WHITE BLOOD COUNT 6.2 X10'3 (4.5-11.0)
[2020-06-17 02:18] LABS: ALBUMIN 3.4 G/DL (3.4-5.0); ALBUMIN/GLOBULIN RATIO 0.8 (1.1-1.5); ANION GAP 7 (8-16); BILIRUBIN,TOTAL 1.8 MG/DL (0.1-1.0); BLOOD UREA NITROGEN 10 MG/DL (7-18); BUN/CREATININE RATIO 8.8 (5.4-32.0); CALCIUM 8.2 MG/DL (8.5-10.1); CHLORIDE 98 MMOL/L (99-107); CREATININE 1.13 MG/DL (0.60-1.10); GLUCOSE 86 MG/DL (70-104); MAGNESIUM 2.1 MG/DL (1.5-2.4); PHOSPHORUS 2.5 MG/DL (2.3-4.5); POTASSIUM 3.8 MMOL/L (3.5-5.1); SODIUM 131 MMOL/L (135-145); TOTAL CARBON DIOXIDE 25.6 MMOL/L (24-32); TOTAL PROTEIN 7.6 G/DL (6.4-8.2); eGFR 66 ML/MIN
[2020-06-17 02:19] LABS: ALANINE AMINOTRANSFERASE 95 U/L (12-78); ALKALINE PHOSPHATASE 191 IU/L (46-116); AMYLASE 123 U/L (25-115); ASPARTATE AMINO TRANSFERASE 196 U/L (10-37); LIPASE 276 U/L (73-393)
--- NOTE | 2020-06-17 02:40 | NUR ---
Was alerted to the patients room after hearing a loud grunt and bed alarm. Rushed to patient room to find him hanging on to the A bed. I immediately asked the patient "what are you doing?" Patient replied, "Im going to the refrigerator." Reoriented the patient promptly and assisted him back to his bed safely. Examined patient noted no injuries. Patient reported that he went down to his right knee. Denies pain to the area. Denies hitting his head. Notified MD Vaz of patient fall and his hallucinations. Bed alarms on and audible. Sensitivity increased.
--- NOTE | 2020-06-17 06:01 | NUR ---
Reported off to Ana MEYER. Patient is resting with relaxed and unlabored respirations on room air. In no apparent distress. Bed alarms on and audible.
--- NOTE | 2020-06-17 06:13 | NUR ---
Patient in room [facility] 356. I have received report from MITCH Guallpa and had the opportunity to ask questions and assume patient care.
[2020-06-17] MEDS: K and/or MAG REPLACEMENT MC SCH ×2 (07:05→19:57)
[2020-06-17] MEDS ORDERED: LORazepam 1 MG tablet PO PRN (07:15)
[2020-06-17 07:20] VITALS: BP 126/82
[2020-06-17] MEDS: ticagrelor 90mg tablet PO SCH ×2 (07:34→20:02)
[2020-06-17] MEDS: tamsulosin 0.4mg capsule PO SCH (07:34)
[2020-06-17] MEDS: pantoprazole 40mg Tablet.DR PO SCH (07:34)
[2020-06-17] MEDS: levoTHYROXINE 100mcg tablet PO SCH (07:34)
[2020-06-17] MEDS: folic acid 1mg tablet PO SCH (07:34)
[2020-06-17] MEDS: lisinopril 5mg tablet PO SCH (07:35)
[2020-06-17] MEDS: metoprolol tartrate 25mg tablet PO SCH ×2 (07:35→20:03)
[2020-06-17] MEDS: thiamine 100mg tablet PO SCH (07:35)
[2020-06-17] MEDS: heparin, porcine 5000 units/ml vial SQ SCH ×2 (07:35→20:00)
[2020-06-17] MEDS: multivitamins, therapeutics tablet PO SCH (07:35)
[2020-06-17] MEDS: aspirin 81mg tab.chew PO SCH (07:35)
[2020-06-17] MEDS: magnesium oxide 400mg tablet PO SCH ×2 (07:35→20:02)
[2020-06-17] MEDS ORDERED: folic acid 1mg tablet PO SCH (08:00)
[2020-06-17] MEDS ORDERED: non-formulary drug (Thiamine Mononitrate (Vitamin B-1) 1 TAB) PO SCH (08:00)
[2020-06-17] MEDS ORDERED: pneumococcal 23-VAL P-sac vacc 25 mcg/0.5ml vial IMVAC ONE (10:00)
[2020-06-17] MEDS ORDERED: PANT40TA54 PO (10:31)
[2020-06-17] MEDS ORDERED: LEVO100T9 PO (10:31)
[2020-06-17] MEDS ORDERED: MULT-25 PO (10:31)
[2020-06-17 11:00] VITALS: BP 106/59
[2020-06-17] MEDS: dextrose 5%-normal saline 1,000 ML IV SCH (16:34)
--- NOTE | 2020-06-17 17:31 | NUR ---
Went into see patient because he threw something on the floor. When walking in the room patient says, "Oh! I miss the trash can, can I get another beer?" Patient was informed that what he threw was not a beer can, it was his urinal. Patient stated, "Really? because I just drank that". Patient was reoriented and reminded that he is in the hospital. Urinal was removed from patient's reach at this time. Patient has Ativan on board and MD was notified. Patient needs sitter.
--- NOTE | 2020-06-17 18:00 | NUR ---
Patient in room [facility] 356. I have received report from Ana MEYER and had the opportunity to ask questions and assume patient care.
--- NOTE | 2020-06-17 18:32 | NUR ---
Problems reprioritized. Patient report given, questions answered & plan of care reviewed with MITCH Hong.
--- NOTE | 2020-06-17 18:32 | NUR ---
Order for sitter obtained.
[2020-06-17] MEDS: atorvastatin 20mg tablet PO SCH (20:03)
[2020-06-17 20:16] VITALS: BP 124/89
[2020-06-18 00:28] VITALS: BP 146/83
[2020-06-18] MEDS: dextrose 5%-normal saline 1,000 ML IV SCH ×2 (02:14→11:14)
[2020-06-18 05:24] LABS: BASOPHILS # (AUTO) 0.1 X10'3 (0-0.2); EOSINOPHILS # (AUTO) 0.3 X10'3 (0-0.9); EOSINOPHILS % (AUTO) 4.4 % (0-6); HEMATOCRIT 31.8 % (42.0-52.0); HEMOGLOBIN 10.7 g/dl (14.0-17.9); LYMPHOCYTES # (AUTO) 1.5 X10'3 (1.1-4.8); LYMPHOCYTES % (AUTO) 19.5 % (21-51); MEAN CORPUSCULAR HEMOGLOBIN 31.8 PG (27.0-31.0); MEAN CORPUSCULAR HGB CONC 33.7 g/dL (33.0-36.5); MEAN CORPUSCULAR VOLUME 94.5 FL (78-98); MEAN PLATELET VOLUME 6.5 FL (7.4-10.4); MONOCYTES # (AUTO) 0.3 X10'3 (0-0.9); MONOCYTES % (AUTO) 4.5 % (2-12); NEUTROPHILS # (AUTO) 5.5 X10'3 (1.8-7.7); NEUTROPHILS % (AUTO) 70.6 % (42-75); PLATELET COUNT 124 X10'3 (140-440); RED BLOOD COUNT 3.37 X10'6 (4.70-6.10); RED CELL DISTRIBUTION WIDTH 15.7 % (11.5-14.5); WHITE BLOOD COUNT 7.7 X10'3 (4.5-11.0)
[2020-06-18 05:38] LABS: ALANINE AMINOTRANSFERASE 72 U/L (12-78); ALBUMIN 3.2 G/DL (3.4-5.0); ALBUMIN/GLOBULIN RATIO 0.8 (1.1-1.5); ALKALINE PHOSPHATASE 156 IU/L (46-116); AMYLASE 82 U/L (25-115); ANION GAP 9 (8-16); ASPARTATE AMINO TRANSFERASE 123 U/L (10-37); BILIRUBIN,TOTAL 1.2 MG/DL (0.1-1.0); BLOOD UREA NITROGEN 11 MG/DL (7-18); BUN/CREATININE RATIO 8.7 (5.4-32.0); CALCIUM 8.3 MG/DL (8.5-10.1); CHLORIDE 97 MMOL/L (99-107); CREATININE 1.27 MG/DL (0.60-1.10); GLUCOSE 98 MG/DL (70-104); MAGNESIUM 1.5 MG/DL (1.5-2.4); PHOSPHORUS 2.6 MG/DL (2.3-4.5); POTASSIUM 3.5 MMOL/L (3.5-5.1); SODIUM 130 MMOL/L (135-145); TOTAL CARBON DIOXIDE 24.1 MMOL/L (24-32); TOTAL PROTEIN 7.4 G/DL (6.4-8.2); eGFR 57 ML/MIN
--- NOTE | 2020-06-18 06:20 | NUR ---
Problems reprioritized. Patient report given, questions answered & plan of care reviewed with Ana MEYER.
--- NOTE | 2020-06-18 06:35 | NUR ---
Patient in room [facility] 356. I have received report from MITCH Hong and had the opportunity to ask questions and assume patient care.
[2020-06-18 07:00] VITALS: BP 126/60
[2020-06-18] MEDS: K and/or MAG REPLACEMENT MC SCH (08:00)
[2020-06-18] MEDS: pantoprazole 40mg Tablet.DR PO SCH (08:41)
[2020-06-18] MEDS: levoTHYROXINE 100mcg tablet PO SCH (08:41)
[2020-06-18] MEDS: aspirin 81mg tab.chew PO SCH (08:42)
[2020-06-18] MEDS: multivitamins, therapeutics tablet PO SCH (08:42)
[2020-06-18] MEDS: folic acid 1mg tablet PO SCH (08:42)
[2020-06-18] MEDS: magnesium oxide 400mg tablet PO SCH (08:42)
[2020-06-18] MEDS: tamsulosin 0.4mg capsule PO SCH (08:42)
[2020-06-18] MEDS: ticagrelor 90mg tablet PO SCH (08:42)
[2020-06-18] MEDS: thiamine 100mg tablet PO SCH (08:42)
[2020-06-18] MEDS: heparin, porcine 5000 units/ml vial SQ SCH (08:43)
[2020-06-18] MEDS: metoprolol tartrate 25mg tablet PO SCH (08:43)
[2020-06-18] MEDS: lisinopril 5mg tablet PO SCH (08:43)
[2020-06-18 11:00] VITALS: BP 111/68
--- NOTE | 2020-06-18 17:00 | NUR ---
Patient discharged home via pet care assistant and taken from unit via wheelchair with x1 staff and caregiver. Patient alert, oriented and in no apparent distress at time of discharge. Patient PIV removed with cannula intact. Patient discharge instructions were discussed with patient and caregiver, Cyndee. There were informed about new medications to picking tech and about abstaining from alcohol. Patient nodded in agreement and caregiver Cyndee agreed. Information from MD was highlighted and discussed and next dose of medications were written on discharge as well. All belongings were taken with patient.
[2020-06-19] MEDS ORDERED: LORazepam 2 mg/ml vial IV PRN (07:15)
[2020-06-19] MEDS ORDERED: LORazepam 1 MG tablet PO PRN (07:15)
== END 2020-06-18 16:52 | disposition home or self-care (01) | DRG 282 ==
LOC: ER 04:25 → ED HOLD 07:13 → SUR 3N 11:03
PROVIDERS: ADMIT Family Medicine; ATTEND Family Medicine
PROC: 3E0234Z Introduction of Serum, Toxoid and Vaccine into Muscle, Percutaneous Approach (ICD-10-PCS; principal; 2020-06-17)
DX: K85.20 Alcohol induced acute pancreatitis without necrosis or infection (principal); D63.8 Anemia in other chronic diseases classified elsewhere; E03.9 Hypothyroidism, unspecified; E78.00 Pure hypercholesterolemia, unspecified; E78.5 Hyperlipidemia, unspecified; E83.42 Hypomagnesemia; E86.0 Dehydration; E87.1 Hypo-osmolality and hyponatremia; E87.2 Acidosis; E87.6 Hypokalemia; F10.20 Alcohol dependence, uncomplicated; F17.210 Nicotine dependence, cigarettes, uncomplicated; G89.4 Chronic pain syndrome; I10 Essential (primary) hypertension; I25.10 Atherosclerotic heart disease of native coronary artery without angina pectoris; K70.9 Alcoholic liver disease, unspecified; N17.0 Acute kidney failure with tubular necrosis; M19.90 Unspecified osteoarthritis, unspecified site; K86.1 Other chronic pancreatitis; B19.20 Unspecified viral hepatitis C without hepatic coma; K21.9 Gastro-esophageal reflux disease without esophagitis; N28.1 Cyst of kidney, acquired; N40.0 Benign prostatic hyperplasia without lower urinary tract symptoms; I25.2 Old myocardial infarction; Z82.3 Family history of stroke; Z90.49 Acquired absence of other specified parts of digestive tract; Z91.19 Patient's noncompliance with other medical treatment and regimen; Z59.0 Homelessness; Z23 Encounter for immunization; Z88.2 Allergy status to sulfonamides; W18.39XA Other fall on same level, initial encounter; Y93.89 Activity, other specified; Y92.230 Patient room in hospital as the place of occurrence of the external cause; Y99.8 Other external cause status; Z71.41 Alcohol abuse counseling and surveillance of alcoholic
CPT/HCPCS: 36415; 71046; 73564; 74176; 80053; 80061; 80305; 80320; 81001; 82150; 82948; 83036; 83605; 83690; 83735; 84100; 84145; 84443; 84484; 85025; 85610; 87040; 87081; 90732; 93005; 96365; 96375; 96376; 97161; 97530; 99285; G0378; J1644; J2060; J2270; J2405; J2560; J3411; J3475; J7030; J7042

== ENCOUNTER 2020-07-30 10:04 | Inpatient (IN) | payer MEDICAID ==
[~2020-07-30] VITALS: Ht 167.6 cm; Wt 72.7 kg
[~2020-07-30 10:04] MED LIST changes: +LEVO100T9 PO; -LEVO150T8 PO; -MELO-100 PO; +MULT-25 PO; -OMEP20CA15 PO; +PANT40TA54 PO
[2020-07-30] MEDS ORDERED: normal saline 1000ML IV soln IVB ONE (10:20)
[2020-07-30] MEDS ORDERED: ondansetron/PF 4mg/2ml inj IV ONE (10:20)
[2020-07-30] MEDS: morphine 4 MG/ML inj SYRINge IV PRN ×2 (10:53→12:56)
[2020-07-30 10:58] LABS: BASOPHILS % (AUTO) 0.1 % (0-1); EOSINOPHILS # (AUTO) 0.1 X10'3 (0-0.9); EOSINOPHILS % (AUTO) 1.2 % (0-6); LYMPHOCYTES # (AUTO) 1.8 X10'3 (1.1-4.8); MEAN CORPUSCULAR HEMOGLOBIN 33.3 PG (27.0-31.0); MEAN CORPUSCULAR HGB CONC 33.5 g/dL (33.0-36.5); MEAN CORPUSCULAR VOLUME 99.6 FL (78-98); MEAN PLATELET VOLUME 6.6 FL (7.4-10.4); MONOCYTES # (AUTO) 0.5 X10'3 (0-0.9); MONOCYTES % (AUTO) 6.2 % (2-12); NEUTROPHILS # (AUTO) 5.1 X10'3 (1.8-7.7); NEUTROPHILS % (AUTO) 68.5 % (42-75); PLATELET COUNT 249 X10'3 (140-440); RED BLOOD COUNT 3.92 X10'6 (4.70-6.10); RED CELL DISTRIBUTION WIDTH 15.9 % (11.5-14.5); WHITE BLOOD COUNT 7.4 X10'3 (4.5-11.0)
[2020-07-30 11:10] LABS: CLARITY,URINE SLIGHTLY CLOUDY (Clear); COLOR,URINE YELLOW (Yellow); GLUCOSE, URINE NEGATIVE (Neg); KETONES,URINE NEGATIVE (Neg); LEUKOCYTE ESTERASE ,URINE SMALL (Neg); NITRITES, URINE NEGATIVE (Neg); OCCULT BLOOD,URINE TRACE-INTACT (Neg); PROTEIN,URINE NEGATIVE (Neg); UROBILINOGEN,URINE 0.2 E.U/dL (0.2-1.0)
[2020-07-30 11:12] LABS: UA COLLECTION TYPE URINAL
[2020-07-30 11:17] LABS: ALANINE AMINOTRANSFERASE 61 U/L (12-78); ALBUMIN 3.8 G/DL (3.4-5.0); ALBUMIN/GLOBULIN RATIO 0.7 (1.1-1.5); ALKALINE PHOSPHATASE 97 IU/L (46-116); ANION GAP 16 (8-16); ASPARTATE AMINO TRANSFERASE 149 U/L (10-37); BILIRUBIN,TOTAL 0.8 MG/DL (0.1-1.0); BLOOD UREA NITROGEN 30 MG/DL (7-18); BUN/CREATININE RATIO 15.5 (5.4-32.0); CALCIUM 8.6 MG/DL (8.5-10.1); CHLORIDE 98 MMOL/L (99-107); CREATININE 1.94 MG/DL (0.60-1.10); GLUCOSE 101 MG/DL (70-104); POTASSIUM 3.9 MMOL/L (3.5-5.1); SODIUM 133 MMOL/L (135-145); TOTAL CARBON DIOXIDE 19.3 MMOL/L (24-32); TOTAL PROTEIN 8.9 G/DL (6.4-8.2); eGFR 35 ML/MIN
[2020-07-30 11:18] LABS: AMYLASE 482 U/L (25-115)
[2020-07-30 11:30] LABS: LIPASE 4939 U/L (73-393)
[2020-07-30 11:31] LABS: HYALINE CASTS 0-3 /LPF (NEGATIVE); MUCUS STRANDS MODERATE /LPF (Neg); SQUAMOUS EPITHELIAL CELL,UR FEW /LPF (FEW)
[2020-07-30 11:32] LABS: WBC,URINE TNTC /HPF (0-4)
[2020-07-30 11:33] LABS: BACTERIA,URINE FEW /HPF (Neg); RBC,URINE 0-2 /HPF (0-2); WBC CLUMPS,URINE FEW /HPF (NEGATIVE)
[2020-07-30] MEDS ORDERED: magnesium 4gm in 100ml NS 100 ML IV PRN (12:20)
[2020-07-30] MEDS ORDERED: potassium CL 10mEq/100ml bag 100 ML IV PRN ×2 (12:20)
[2020-07-30] MEDS ORDERED: ondansetron/PF 4mg/2ml inj IV PRN (12:20)
[2020-07-30] MEDS ORDERED: potassium Cl 20 mEq SR tablet PO PRN (12:20)
[2020-07-30] MEDS ORDERED: magnesium 2GM in 50ml NS 50 ML IV PRN (12:20)
[2020-07-30] MEDS ORDERED: PANT-47 PO (12:34)
[2020-07-30] MEDS ORDERED: ASPI-1475 PO (12:34)
[2020-07-30] MEDS ORDERED: LEVO100T PO (12:34)
[2020-07-30] MEDS ORDERED: FOLI0.4T2 PO (12:34)
[2020-07-30] MEDS ORDERED: ATOR40TA72 PO (12:34)
[2020-07-30] MEDS ORDERED: AMLO10TA13 PO (12:34)
[2020-07-30] MEDS ORDERED: OMEP-50 PO (12:34)
[2020-07-30] MEDS ORDERED: NITR0.4T51 SL (12:38)
--- NOTE | 2020-07-30 13:17 | NUR ---
[facility] WORKER RADHA CALLED, HER NUMBER [phone]
[2020-07-30] MEDS: normal saline 1000ml 1,000 ML IV SCH (14:30)
[2020-07-30 14:34] VITALS: BP 166/98
[2020-07-30] MEDS: morphine 2 MG/ML inj. syringe IV PRN ×3 (14:56→23:18)
[2020-07-30] MEDS: tamsulosin 0.4mg capsule PO SCH (16:40)
[2020-07-30] MEDS: folic acid 1mg tablet PO SCH (16:40)
[2020-07-30] MEDS ORDERED: nitroGLYCERIN 0.4mg SUBLingual tab SL PRN (16:40)
[2020-07-30] MEDS: aspirin 81mg tablet.DR PO SCH (16:40)
--- NOTE | 2020-07-30 16:48 | NUR ---
page sent to Rey MEYER. Annalisa Jonas : patient needs darted. thanks!
[2020-07-30 18:00] VITALS: BP 169/106
--- NOTE | 2020-07-30 18:07 | NUR ---
Patient in room [facility] 352. I have received report from MITCH Bullock and had the opportunity to ask questions and assume patient care.
--- NOTE | 2020-07-30 18:17 | NUR ---
Problems reprioritized. Patient report given, questions answered & plan of care reviewed with MITCH Foley.
[2020-07-30] MEDS: hydrALAZINE 20mg/ml inj. IV SCH (19:18)
[2020-07-30] MEDS: K and/or MAG REPLACEMENT MC SCH (19:29)
[2020-07-31] VITALS: BP 142/83
[2020-07-31] MEDS: normal saline 1000ml 1,000 ML IV SCH ×3 (00:10→19:59)
[2020-07-31] MEDS: hydrALAZINE 20mg/ml inj. IV SCH ×4 (02:07→19:57)
[2020-07-31] MEDS: morphine 2 MG/ML inj. syringe IV PRN ×4 (03:44→19:57)
[2020-07-31 05:43] LABS: ALBUMIN 3.3 G/DL (3.4-5.0); ANION GAP 9 (8-16); BLOOD UREA NITROGEN 18 MG/DL (7-18); BUN/CREATININE RATIO 12.9 (5.4-32.0); CALCIUM 8.2 MG/DL (8.5-10.1); CHLORIDE 104 MMOL/L (99-107); CREATININE 1.39 MG/DL (0.60-1.10); GLUCOSE 94 MG/DL (70-104); MAGNESIUM 1.3 MG/DL (1.5-2.4); POTASSIUM 3.3 MMOL/L (3.5-5.1); SODIUM 134 MMOL/L (135-145); TOTAL CARBON DIOXIDE 21.5 MMOL/L (24-32); eGFR 52 ML/MIN
[2020-07-31 05:47] LABS: BASOPHILS % (AUTO) 0.5 % (0-1); EOSINOPHILS # (AUTO) 0.3 X10'3 (0-0.9); EOSINOPHILS % (AUTO) 4.1 % (0-6); HEMATOCRIT 35.4 % (42.0-52.0); HEMOGLOBIN 12.1 g/dl (14.0-17.9); LYMPHOCYTES # (AUTO) 1.4 X10'3 (1.1-4.8); MEAN CORPUSCULAR HEMOGLOBIN 34.2 PG (27.0-31.0); MEAN CORPUSCULAR HGB CONC 34.3 g/dL (33.0-36.5); MEAN CORPUSCULAR VOLUME 99.8 FL (78-98); MEAN PLATELET VOLUME 6.8 FL (7.4-10.4); MONOCYTES # (AUTO) 0.4 X10'3 (0-0.9); MONOCYTES % (AUTO) 6.3 % (2-12); NEUTROPHILS # (AUTO) 4.3 X10'3 (1.8-7.7); NEUTROPHILS % (AUTO) 67.1 % (42-75); PLATELET COUNT 206 X10'3 (140-440); RED BLOOD COUNT 3.55 X10'6 (4.70-6.10); RED CELL DISTRIBUTION WIDTH 15.4 % (11.5-14.5); WHITE BLOOD COUNT 6.5 X10'3 (4.5-11.0)
--- NOTE | 2020-07-31 06:15 | NUR ---
Problems reprioritized. Patient report given, questions answered & plan of care reviewed with MITCH Clemens.
[2020-07-31] MEDS: K and/or MAG REPLACEMENT MC SCH ×2 (08:00→20:00)
[2020-07-31] MEDS: folic acid 1mg tablet PO SCH (08:00)
[2020-07-31] MEDS: tamsulosin 0.4mg capsule PO SCH (08:00)
[2020-07-31] MEDS: aspirin 81mg tablet.DR PO SCH (08:00)
[2020-07-31] MEDS: levoTHYROXINE 100mcg tablet PO SCH (08:00)
[2020-07-31] MEDS: metoprolol succinate 25mg (24-HOUR) SR. Tablet PO SCH (08:01)
[2020-07-31] MEDS: atorvastatin 20mg tablet PO SCH (08:01)
[2020-07-31] MEDS: magnesium Cl slow-release 64mg tablet PO PRN (08:09)
[2020-07-31 09:25] VITALS: BP 138/88
[2020-07-31] MEDS: pantoprazole 40mg Tablet.DR PO SCH (09:34)
[2020-07-31 11:26] VITALS: BP 127/80
[2020-07-31 13:53] LABS: C DIFF ANTIGEN NEGATIVE (NEGATIVE); C DIFF SPECIMEN=DIARRHEA? ACCEPTABLE; C DIFFICILE TOXINS A&B NEGATIVE (Neg)
--- NOTE | 2020-07-31 18:20 | NUR ---
Patient in room [facility] 352. I have received report from MITCH Clemens and had the opportunity to ask questions and assume patient care.
--- NOTE | 2020-07-31 18:21 | NUR ---
Problems reprioritized. Patient report given, questions answered & plan of care reviewed with Alaina MEYER.
[2020-07-31 20:00] VITALS: BP 151/94
[2020-08-01] VITALS: BP 164/94
[2020-08-01] MEDS: magnesium Cl slow-release 64mg tablet PO PRN (00:14)
[2020-08-01] MEDS: potassium Cl 20 mEq SR tablet PO PRN ×4 (00:14→20:27)
[2020-08-01] MEDS: morphine 2 MG/ML inj. syringe IV PRN ×3 (02:17→15:35)
[2020-08-01] MEDS: hydrALAZINE 20mg/ml inj. IV SCH ×4 (02:18→20:29)
[2020-08-01 05:54] LABS: ALBUMIN 3.4 G/DL (3.4-5.0); ANION GAP 11 (8-16); BASOPHILS # (AUTO) 0.1 X10'3 (0-0.2); BASOPHILS % (AUTO) 1.4 % (0-1); BLOOD UREA NITROGEN 11 MG/DL (7-18); BUN/CREATININE RATIO 9.4 (5.4-32.0); CALCIUM 7.9 MG/DL (8.5-10.1); CHLORIDE 103 MMOL/L (99-107); CREATININE 1.17 MG/DL (0.60-1.10); EOSINOPHILS # (AUTO) 0.2 X10'3 (0-0.9); EOSINOPHILS % (AUTO) 3.5 % (0-6); GLUCOSE 82 MG/DL (70-104); HEMOGLOBIN 12.7 g/dl (14.0-17.9); LYMPHOCYTES # (AUTO) 2.1 X10'3 (1.1-4.8); LYMPHOCYTES % (AUTO) 29.2 % (21-51); MAGNESIUM 1.2 MG/DL (1.5-2.4); MEAN CORPUSCULAR HEMOGLOBIN 33.4 PG (27.0-31.0); MEAN CORPUSCULAR HGB CONC 33.4 g/dL (33.0-36.5); MEAN CORPUSCULAR VOLUME 100.1 FL (78-98); MEAN PLATELET VOLUME 7.1 FL (7.4-10.4); MONOCYTES # (AUTO) 0.4 X10'3 (0-0.9); MONOCYTES % (AUTO) 6.2 % (2-12); NEUTROPHILS # (AUTO) 4.2 X10'3 (1.8-7.7); NEUTROPHILS % (AUTO) 59.7 % (42-75); PLATELET COUNT 213 X10'3 (140-440); POTASSIUM 3.2 MMOL/L (3.5-5.1); SODIUM 136 MMOL/L (135-145); TOTAL CARBON DIOXIDE 22.2 MMOL/L (24-32); WHITE BLOOD COUNT 7.1 X10'3 (4.5-11.0); eGFR 63 ML/MIN
--- NOTE | 2020-08-01 06:28 | NUR ---
Problems reprioritized. Patient report given, questions answered & plan of care reviewed with MITCH Otto.
--- NOTE | 2020-08-01 06:30 | NUR ---
Patient in room [facility] 352. I have received report from Alaina MEYER and had the opportunity to ask questions and assume patient care.
[2020-08-01 08:00] VITALS: BP 140/86
[2020-08-01] MEDS: K and/or MAG REPLACEMENT MC SCH ×2 (08:00→20:00)
[2020-08-01] MEDS: aspirin 81mg tablet.DR PO SCH (09:04)
[2020-08-01] MEDS: metoprolol succinate 25mg (24-HOUR) SR. Tablet PO SCH (09:04)
[2020-08-01] MEDS: levoTHYROXINE 100mcg tablet PO SCH (09:04)
[2020-08-01] MEDS: folic acid 1mg tablet PO SCH (09:04)
[2020-08-01] MEDS: pantoprazole 40mg Tablet.DR PO SCH (09:05)
[2020-08-01] MEDS: tamsulosin 0.4mg capsule PO SCH (09:05)
[2020-08-01] MEDS: atorvastatin 20mg tablet PO SCH (09:11)
[2020-08-01] MEDS: normal saline 1000ml 1,000 ML IV SCH ×2 (09:13→22:34)
[2020-08-01 11:00] VITALS: BP 140/87
[2020-08-01 12:00] LABS: LIPASE 516 U/L (73-393)
--- NOTE | 2020-08-01 19:02 | NUR ---
Problems reprioritized. Patient report given, questions answered & plan of care reviewed with Pat RN.
[2020-08-01 19:30] VITALS: BP 153/89
--- NOTE | 2020-08-01 19:30 | NUR ---
recently started on clear liquids; pt denies nausea Addendum: 08/02/20 at 0035 by Regina Roy RN Amended: Links added.
[2020-08-02] VITALS: BP 150/88
[2020-08-02] MEDS: normal saline 1000ml 1,000 ML IV SCH ×2 (02:33→09:43)
[2020-08-02 02:36] VITALS: BP 152/91
[2020-08-02] MEDS: hydrALAZINE 20mg/ml inj. IV SCH ×2 (02:37→08:05)
[2020-08-02 05:55] LABS: BASOPHILS # (AUTO) 0.1 X10'3 (0-0.2); BASOPHILS % (AUTO) 1.2 % (0-1); EOSINOPHILS # (AUTO) 0.2 X10'3 (0-0.9); EOSINOPHILS % (AUTO) 3.2 % (0-6); HEMATOCRIT 34.2 % (42.0-52.0); HEMOGLOBIN 11.6 g/dl (14.0-17.9); LYMPHOCYTES # (AUTO) 1.3 X10'3 (1.1-4.8); LYMPHOCYTES % (AUTO) 18.4 % (21-51); MEAN CORPUSCULAR HGB CONC 33.8 g/dL (33.0-36.5); MEAN CORPUSCULAR VOLUME 100.8 FL (78-98); MONOCYTES # (AUTO) 0.4 X10'3 (0-0.9); MONOCYTES % (AUTO) 5.2 % (2-12); PLATELET COUNT 182 X10'3 (140-440); RED CELL DISTRIBUTION WIDTH 15.3 % (11.5-14.5)
[2020-08-02 06:06] LABS: ALBUMIN 3.1 G/DL (3.4-5.0); ANION GAP 10 (8-16); BLOOD UREA NITROGEN 9 MG/DL (7-18); BUN/CREATININE RATIO 8.2 (5.4-32.0); CALCIUM 7.8 MG/DL (8.5-10.1); CHLORIDE 102 MMOL/L (99-107); GLUCOSE 89 MG/DL (70-104); LIPASE 525 U/L (73-393); MAGNESIUM 1.8 MG/DL (1.5-2.4); POTASSIUM 3.5 MMOL/L (3.5-5.1); SODIUM 132 MMOL/L (135-145); TOTAL CARBON DIOXIDE 19.7 MMOL/L (24-32); eGFR 68 ML/MIN
[2020-08-02 07:19] VITALS: BP 165/101
[2020-08-02 07:48] VITALS: BP 144/95
[2020-08-02] MEDS: K and/or MAG REPLACEMENT MC SCH (08:00)
[2020-08-02] MEDS: metoprolol succinate 25mg (24-HOUR) SR. Tablet PO SCH (08:11)
[2020-08-02] MEDS: tamsulosin 0.4mg capsule PO SCH (08:11)
[2020-08-02] MEDS: folic acid 1mg tablet PO SCH (08:11)
[2020-08-02] MEDS: levoTHYROXINE 100mcg tablet PO SCH (08:12)
[2020-08-02] MEDS: aspirin 81mg tablet.DR PO SCH (08:12)
[2020-08-02] MEDS: atorvastatin 20mg tablet PO SCH (08:13)
[2020-08-02] MEDS: pantoprazole 40mg Tablet.DR PO SCH (08:13)
--- NOTE | 2020-08-02 11:16 | NUR ---
Student Medication Administration: For this medication-pass time frame, all medication were reviewed, dispensed, administered and documented per hospital policy by cassi Tamayo.
--- NOTE | 2020-08-02 11:16 | NUR ---
Student documentation: I have reviewed and agree with all interventions, assessments performed and documented by Belkis, state tested nursing assistant.
[2020-08-02 11:58] VITALS: BP 147/92
== END 2020-08-02 15:11 | disposition home or self-care (01) | DRG 282 ==
LOC: ER 10:05 → ED HOLD 12:20 → SUR 3N 14:47
PROVIDERS: ADMIT Internal Medicine; ATTEND Internal Medicine
DX: K85.20 Alcohol induced acute pancreatitis without necrosis or infection (principal); B18.2 Chronic viral hepatitis C; E03.9 Hypothyroidism, unspecified; E78.00 Pure hypercholesterolemia, unspecified; E78.5 Hyperlipidemia, unspecified; F10.29 Alcohol dependence with unspecified alcohol-induced disorder; F17.210 Nicotine dependence, cigarettes, uncomplicated; I10 Essential (primary) hypertension; I25.10 Atherosclerotic heart disease of native coronary artery without angina pectoris; K21.9 Gastro-esophageal reflux disease without esophagitis; K86.1 Other chronic pancreatitis; N40.0 Benign prostatic hyperplasia without lower urinary tract symptoms; I25.2 Old myocardial infarction; Z90.49 Acquired absence of other specified parts of digestive tract
CPT/HCPCS: 36415; 74176; 80048; 80053; 81001; 82150; 83690; 83735; 85025; 87045; 87046; 87081; 87088; 87324; 87449; 99285; G0378; J0360; J2270; J2405; J3475; J7030

== ENCOUNTER 2020-08-26 21:30 | Emergency (ER) | payer MEDICAID ==
[~2020-08-26] VITALS: Ht 167.6 cm; Wt 72.7 kg
[~2020-08-26 21:30] MED LIST changes: -ASPI-1265 PO; +ASPI-1475 PO; -ATOR20TA66 PO; +ATOR40TA72 PO; +FOLI0.4T2 PO; -FOLI1TAB16 PO; +LEVO100T PO; -LEVO100T9 PO; -LISI-642 PO; -MAGN400C PO; -METO25TA6 PO; -MULT-25 PO; +NITR0.4T51 SL; +OMEP-50 PO; -PANT40TA54 PO; -THIA100T70 PO; -TICA90TA PO
[2020-08-26 22:10] LABS: BASOPHILS # (AUTO) 0.1 X10'3 (0-0.2); EOSINOPHILS # (AUTO) 0.1 X10'3 (0-0.9); EOSINOPHILS % (AUTO) 1.2 % (0-6); HEMATOCRIT 42.4 % (42.0-52.0); HEMOGLOBIN 14.5 g/dl (14.0-17.9); LYMPHOCYTES # (AUTO) 2.1 X10'3 (1.1-4.8); LYMPHOCYTES % (AUTO) 25.2 % (21-51); MEAN CORPUSCULAR HEMOGLOBIN 33.7 PG (27.0-31.0); MEAN CORPUSCULAR HGB CONC 34.1 g/dL (33.0-36.5); MEAN CORPUSCULAR VOLUME 98.8 FL (78-98); MEAN PLATELET VOLUME 6.5 FL (7.4-10.4); MONOCYTES # (AUTO) 0.5 X10'3 (0-0.9); MONOCYTES % (AUTO) 6.3 % (2-12); NEUTROPHILS # (AUTO) 5.6 X10'3 (1.8-7.7); NEUTROPHILS % (AUTO) 66.3 % (42-75); PLATELET COUNT 176 X10'3 (140-440); RED BLOOD COUNT 4.29 X10'6 (4.70-6.10); RED CELL DISTRIBUTION WIDTH 14.6 % (11.5-14.5); WHITE BLOOD COUNT 8.4 X10'3 (4.5-11.0)
[2020-08-26 22:26] LABS: ALANINE AMINOTRANSFERASE 157 U/L (12-78); ALBUMIN 3.8 G/DL (3.4-5.0); ALBUMIN/GLOBULIN RATIO 0.7 (1.1-1.5); ALKALINE PHOSPHATASE 113 IU/L (46-116); ANION GAP 14 (8-16); ASPARTATE AMINO TRANSFERASE 394 U/L (10-37); BILIRUBIN,TOTAL 1.2 MG/DL (0.1-1.0); BLOOD UREA NITROGEN 19 MG/DL (7-18); CALCIUM 8.8 MG/DL (8.5-10.1); CHLORIDE 101 MMOL/L (99-107); CREATININE 1.46 MG/DL (0.60-1.10); GLUCOSE 104 MG/DL (70-104); POTASSIUM 3.8 MMOL/L (3.5-5.1); SODIUM 135 MMOL/L (135-145); TOTAL PROTEIN 9.1 G/DL (6.4-8.2); eGFR 49 ML/MIN
[2020-08-26 22:52] LABS: LIPASE 3868 U/L (73-393)
[2020-08-26] MEDS ORDERED: morphine 4 MG/ML inj SYRINge IV PRN (23:05)
[2020-08-26] MEDS ORDERED: normal saline 1000ML IV soln IVB ONE (23:05)
[2020-08-26] MEDS ORDERED: ondansetron/PF 4mg/2ml inj IV ONE (23:05)
[2020-08-26] MEDS ORDERED: ketorolac trometh. 30mg/ml inj. IV ONE (23:05)
[2020-08-26 23:25] LABS: CLARITY,URINE CLEAR (Clear); COLOR,URINE YELLOW (Yellow); GLUCOSE, URINE NEGATIVE (Neg); KETONES,URINE NEGATIVE (Neg); LEUKOCYTE ESTERASE ,URINE NEGATIVE (Neg); NITRITES, URINE NEGATIVE (Neg); OCCULT BLOOD,URINE TRACE-INTACT (Neg); PROTEIN,URINE 30 mg/dl (Neg); UROBILINOGEN,URINE 0.2 E.U/dL (0.2-1.0)
[2020-08-26 23:29] LABS: UA COLLECTION TYPE CLN CATCH MIDSTREAM
[2020-08-26 23:30] LABS: BACTERIA,URINE NONE SEEN /HPF (Neg); RBC,URINE 0-2 /HPF (0-2); SQUAMOUS EPITHELIAL CELL,UR FEW /LPF (FEW); WBC,URINE NONE SEEN /HPF (0-4)
[2020-08-26] MEDS ORDERED: HYDR-4383 PO (23:53)
[2020-08-27 00:20] VITALS: BP 184/104
== END 2020-08-27 00:23 | disposition home or self-care (01) ==
LOC: ER 21:31
DX: K85.20 Alcohol induced acute pancreatitis without necrosis or infection (principal); I25.10 Atherosclerotic heart disease of native coronary artery without angina pectoris; E78.00 Pure hypercholesterolemia, unspecified; I10 Essential (primary) hypertension; K21.9 Gastro-esophageal reflux disease without esophagitis; N40.0 Benign prostatic hyperplasia without lower urinary tract symptoms; F10.10 Alcohol abuse, uncomplicated; E03.9 Hypothyroidism, unspecified; G89.29 Other chronic pain; Z90.49 Acquired absence of other specified parts of digestive tract; Z98.890 Other specified postprocedural states; Z56.0 Unemployment, unspecified; Z59.0 Homelessness; Z88.2 Allergy status to sulfonamides; Z88.8 Allergy status to other drugs, medicaments and biological substances; Z79.82 Long term (current) use of aspirin; Z79.899 Other long term (current) drug therapy
CPT/HCPCS: 36415; 80053; 81001; 83690; 84484; 85025; 93005; 96361; 96374; 96375; 99284; J1885; J2270; J2405; J7030

== ENCOUNTER 2020-09-15 16:20 | Emergency (ER) | payer MEDICAID ==
[~2020-09-15] VITALS: Ht 167.6 cm; Wt 72.7 kg
[~2020-09-15 16:20] MED LIST changes: +HYDR-4383 PO
[2020-09-15 16:57] LABS: EOSINOPHILS # (AUTO) 0.1 X10'3 (0-0.9); LYMPHOCYTES # (AUTO) 3.2 X10'3 (1.1-4.8); MEAN CORPUSCULAR HEMOGLOBIN 33.7 PG (27.0-31.0); MEAN PLATELET VOLUME 6.2 FL (7.4-10.4); MONOCYTES # (AUTO) 0.3 X10'3 (0-0.9); RED BLOOD COUNT 3.52 X10'6 (4.70-6.10); WHITE BLOOD COUNT 5.9 X10'3 (4.5-11.0)
[2020-09-15 16:58] LABS: BASOPHILS % (AUTO) 0.3 % (0-1); EOSINOPHILS % (AUTO) 2.2 % (0-6); HEMOGLOBIN 11.8 g/dl (14.0-17.9); LYMPHOCYTES % (AUTO) 54.2 % (21-51); MEAN CORPUSCULAR HGB CONC 33.9 g/dL (33.0-36.5); MEAN CORPUSCULAR VOLUME 99.4 FL (78-98); NEUTROPHILS # (AUTO) 2.3 X10'3 (1.8-7.7); NEUTROPHILS % (AUTO) 38.3 % (42-75); PLATELET COUNT 266 X10'3 (140-440); RED CELL DISTRIBUTION WIDTH 14.4 % (11.5-14.5)
[2020-09-15 17:13] LABS: ALANINE AMINOTRANSFERASE 52 U/L (12-78); ALBUMIN 3.4 G/DL (3.4-5.0); ALBUMIN/GLOBULIN RATIO 0.7 (1.1-1.5); ALKALINE PHOSPHATASE 95 IU/L (46-116); ANION GAP 16 (8-16); ASPARTATE AMINO TRANSFERASE 109 U/L (10-37); BILIRUBIN,TOTAL 0.3 MG/DL (0.1-1.0); BLOOD UREA NITROGEN 27 MG/DL (7-18); BUN/CREATININE RATIO 13.9 (5.4-32.0); CALCIUM 8.3 MG/DL (8.5-10.1); CHLORIDE 103 MMOL/L (99-107); CREATININE 1.94 MG/DL (0.60-1.10); GLUCOSE 111 MG/DL (70-104); POTASSIUM 4.1 MMOL/L (3.5-5.1); SODIUM 138 MMOL/L (135-145); TOTAL PROTEIN 8.1 G/DL (6.4-8.2); eGFR 35 ML/MIN
[2020-09-15 17:14] LABS: LIPASE 1571 U/L (73-393)
[2020-09-15 20:31] VITALS: BP_DIAS 12
[2020-09-15] MEDS ORDERED: morphine 4 MG/ML inj SYRINge IV ONE ×2 (20:55→21:35)
[2020-09-15] MEDS ORDERED: ondansetron/PF 4mg/2ml inj IV ONE (20:55)
[2020-09-15] MEDS ORDERED: normal saline 1000ML IV soln IVB ONE (20:55)
[2020-09-15] MEDS ORDERED: hydrALAZINE 20mg/ml inj. IV ONE (21:30)
[2020-09-15 21:33] LABS: CLARITY,URINE CLEAR (Clear); COLOR,URINE YELLOW (Yellow); GLUCOSE, URINE NEGATIVE (Neg); KETONES,URINE NEGATIVE (Neg); LEUKOCYTE ESTERASE ,URINE NEGATIVE (Neg); NITRITES, URINE NEGATIVE (Neg); OCCULT BLOOD,URINE NEGATIVE (Neg); PH,URINE 5.5 (4.8-8.0); PROTEIN,URINE NEGATIVE (Neg); UROBILINOGEN,URINE 0.2 E.U/dL (0.2-1.0)
[2020-09-15 21:35] LABS: UA COLLECTION TYPE URINAL
[2020-09-15] MEDS ORDERED: HYDROcodone/acetaminophen 10/325mg tab PO ONE (21:35)
[2020-09-15 21:37] VITALS: BP_SYST 204
[2020-09-15] MEDS ORDERED: HYDR-3965 PO (21:41)
[2020-09-15] MEDS ORDERED: ONDA4TAB6 PO (21:41)
== END 2020-09-15 22:12 | disposition home or self-care (01) ==
LOC: ER 16:21
DX: K85.20 Alcohol induced acute pancreatitis without necrosis or infection (principal); I25.10 Atherosclerotic heart disease of native coronary artery without angina pectoris; E78.00 Pure hypercholesterolemia, unspecified; I10 Essential (primary) hypertension; K21.9 Gastro-esophageal reflux disease without esophagitis; E03.9 Hypothyroidism, unspecified; G89.29 Other chronic pain; Z90.49 Acquired absence of other specified parts of digestive tract; Z90.89 Acquired absence of other organs; Z56.0 Unemployment, unspecified; Z59.0 Homelessness; Z72.89 Other problems related to lifestyle; Z86.19 Personal history of other infectious and parasitic diseases; Z88.2 Allergy status to sulfonamides; Z88.8 Allergy status to other drugs, medicaments and biological substances; Z79.82 Long term (current) use of aspirin; Z79.899 Other long term (current) drug therapy
CPT/HCPCS: 80053; 81003; 83690; 85025; 96361; 96374; 96375; 96376; 99284; J0360; J2270; J2405; J7030

== ENCOUNTER 2021-02-03 23:33 | Emergency (ER) | payer MEDICAID ==
[~2021-02-03] VITALS: Ht 167.6 cm; Wt 72.7 kg
[~2021-02-03 23:33] MED LIST changes: -FOLI0.4T2 PO; +FOLI0.4T6 PO; +ONDA4TAB6 PO
[2021-02-03] MEDS ORDERED: aspirin 81mg tab.chew PO ONE (23:40)
[2021-02-04 00:03] LABS: BASOPHILS % (AUTO) 0.3 % (0-1); EOSINOPHILS # (AUTO) 0.2 X10'3 (0-0.9); EOSINOPHILS % (AUTO) 3.2 % (0-6); HEMATOCRIT 32.7 % (42.0-52.0); LYMPHOCYTES # (AUTO) 3.3 X10'3 (1.1-4.8); LYMPHOCYTES % (AUTO) 47.9 % (21-51); MEAN CORPUSCULAR HEMOGLOBIN 33.6 PG (27.0-31.0); MEAN CORPUSCULAR HGB CONC 33.5 g/dL (33.0-36.5); MEAN CORPUSCULAR VOLUME 100.3 FL (78-98); MEAN PLATELET VOLUME 6.5 FL (7.4-10.4); MONOCYTES # (AUTO) 0.3 X10'3 (0-0.9); MONOCYTES % (AUTO) 4.8 % (2-12); NEUTROPHILS % (AUTO) 43.8 % (42-75); PLATELET COUNT 233 X10'3 (140-440); RED BLOOD COUNT 3.26 X10'6 (4.70-6.10); RED CELL DISTRIBUTION WIDTH 15.6 % (11.5-14.5)
[2021-02-04 00:13] LABS: ALANINE AMINOTRANSFERASE 37 U/L (12-78); ALBUMIN 3.5 G/DL (3.4-5.0); ALBUMIN/GLOBULIN RATIO 0.8 (1.1-1.5); ALKALINE PHOSPHATASE 96 IU/L (46-116); ANION GAP 14 (8-16); ASPARTATE AMINO TRANSFERASE 107 U/L (10-37); BILIRUBIN,TOTAL 0.4 MG/DL (0.1-1.0); BLOOD UREA NITROGEN 18 MG/DL (7-18); BUN/CREATININE RATIO 10.8 (5.4-32.0); CALCIUM 7.7 MG/DL (8.5-10.1); CHLORIDE 92 MMOL/L (99-107); CREATININE 1.66 MG/DL (0.60-1.10); GLUCOSE 94 MG/DL (70-104); POTASSIUM 3.1 MMOL/L (3.5-5.1); SODIUM 127 MMOL/L (135-145); TOTAL CARBON DIOXIDE 21.2 MMOL/L (24-32); eGFR 42 ML/MIN
[2021-02-04 00:19] LABS: MAGNESIUM 1.1 MG/DL (1.5-2.4)
[2021-02-04] MEDS ORDERED: diphenhydrAMINE 50 mg/ml inj IV ONE ×2 (00:40→00:55)
[2021-02-04] MEDS ORDERED: potassium bicarbonate/cit acid 25mEq tablet.effervescent PO ONE (01:20)
[2021-02-04 01:55] LABS: ETHANOL 0.087 GM/DL (0.0-0.010); LIPASE 161 U/L (73-393)
--- NOTE | 2021-02-04 02:30 | NUR ---
Patient up to bedside commode to void, approximately 300 mls. Patient remains fidgity and restless and is assisted back to bed by RN and reassured. MD in to see patient.
--- NOTE | 2021-02-04 03:03 | NUR ---
Sister not in lobby. Called family memberat [phone] and phone # to reach Yaritza sister who has alex to patient's house is given as: [phone]. Went to voicemail, message left to call ER that she is coming to get patient.
[2021-02-04 03:45] VITALS: BP 189/123
--- NOTE | 2021-02-04 03:46 | NUR ---
planer stone notified of elevated BP and discharge up now. MD notified of current reading and states okay to proceed with discharge.
== END 2021-02-04 04:07 | disposition home or self-care (01) ==
LOC: ER 23:34
DX: R07.89 Other chest pain (principal); F10.129 Alcohol abuse with intoxication, unspecified; E87.1 Hypo-osmolality and hyponatremia; E87.6 Hypokalemia; R06.02 Shortness of breath; R05 Cough; I25.10 Atherosclerotic heart disease of native coronary artery without angina pectoris; E78.00 Pure hypercholesterolemia, unspecified; I10 Essential (primary) hypertension; I25.2 Old myocardial infarction; K21.9 Gastro-esophageal reflux disease without esophagitis; E03.9 Hypothyroidism, unspecified; G89.29 Other chronic pain; Z86.19 Personal history of other infectious and parasitic diseases; Z90.89 Acquired absence of other organs; Z90.49 Acquired absence of other specified parts of digestive tract; Z98.890 Other specified postprocedural states; Z72.89 Other problems related to lifestyle; Z56.0 Unemployment, unspecified; Z59.0 Homelessness; Z88.2 Allergy status to sulfonamides; Z88.8 Allergy status to other drugs, medicaments and biological substances; Z79.82 Long term (current) use of aspirin; Z79.899 Other long term (current) drug therapy; Y90.0 Blood alcohol level of less than 20 mg/100 ml
CPT/HCPCS: 36415; 71045; 80053; 80320; 83690; 83735; 83880; 84484; 85025; 93005; 96374; 99285; J1200

== ENCOUNTER 2021-03-15 19:56 | Inpatient (IN) | payer MEDICAID ==
[~2021-03-15] VITALS: Ht 175.3 cm; Wt 81.8 kg
[2021-03-15] MEDS ORDERED: ketorolac tromethamine 15mg/ml inj. IV ONE (20:15)
[2021-03-15] MEDS ORDERED: diphenhydrAMINE 50 mg/ml inj IV ONE (20:15)
[2021-03-15] MEDS ORDERED: metoclopramide 5 mg/ml inj IV ONE (20:15)
[2021-03-15] MEDS ORDERED: normal saline 1000ML IV soln IVB ONE ×2 (20:15)
[2021-03-15 20:25] LABS: BASOPHILS # (AUTO) 0.1 X10'3 (0-0.2); EOSINOPHILS # (AUTO) 0.1 X10'3 (0-0.9); HEMATOCRIT 31.2 % (42.0-52.0); HEMOGLOBIN 10.9 g/dl (14.0-17.9); LYMPHOCYTES # (AUTO) 3.1 X10'3 (1.1-4.8); MEAN CORPUSCULAR HEMOGLOBIN 35.1 PG (27.0-31.0); MEAN CORPUSCULAR VOLUME 100.3 FL (78-98); MEAN PLATELET VOLUME 6.7 FL (7.4-10.4); MONOCYTES # (AUTO) 0.5 X10'3 (0-0.9); MONOCYTES % (AUTO) 7.7 % (2-12); NEUTROPHILS # (AUTO) 3.2 X10'3 (1.8-7.7); NEUTROPHILS % (AUTO) 45.3 % (42-75); PLATELET COUNT 226 X10'3 (140-440); RED BLOOD COUNT 3.11 X10'6 (4.70-6.10); RED CELL DISTRIBUTION WIDTH 15.3 % (11.5-14.5); WHITE BLOOD COUNT 7.1 X10'3 (4.5-11.0)
[2021-03-15 20:50] LABS: ALANINE AMINOTRANSFERASE 32 U/L (12-78); ALBUMIN/GLOBULIN RATIO 0.7 (1.1-1.5); ALKALINE PHOSPHATASE 73 IU/L (46-116); ANION GAP 16 (8-16); ASPARTATE AMINO TRANSFERASE 45 U/L (10-37); BILIRUBIN,TOTAL 0.7 MG/DL (0.1-1.0); BLOOD UREA NITROGEN 8 MG/DL (7-18); BUN/CREATININE RATIO 7.6 (5.4-32.0); CALCIUM 7.7 MG/DL (8.5-10.1); CHLORIDE 95 MMOL/L (99-107); CREATININE 1.05 MG/DL (0.60-1.10); GLUCOSE 88 MG/DL (70-104); POTASSIUM 3.5 MMOL/L (3.5-5.1); SODIUM 127 MMOL/L (135-145); TOTAL CARBON DIOXIDE 15.6 MMOL/L (24-32); TOTAL PROTEIN 7.1 G/DL (6.4-8.2); eGFR 71 ML/MIN
[2021-03-15 20:56] LABS: LIPASE 605 U/L (73-393)
[2021-03-15] MEDS ORDERED: enoxaparin 100mg/ml syringe SUBCUT ONE (21:05)
[2021-03-15] MEDS ORDERED: magnesium 4gm in 100ml NS 100 ML IV ONE (21:05)
[2021-03-15] MEDS ORDERED: aspirin 81mg tab.chew PO ONE (21:05)
[2021-03-15] MEDS ORDERED: enoxaparin 80mg/0.8ml syringe SUBCUT ONE (21:10)
--- NOTE | 2021-03-15 23:11 | NUR ---
unable to obtain urine, patient has a stricture per urologist and will need OR tomorrow.
[2021-03-16] VITALS (14 sets, daily range): BP systolic 114–145; BP diastolic 78–94
[2021-03-16] MEDS ORDERED: potassium Cl 20 mEq SR tablet PO PRN ×2 (00:50)
[2021-03-16] MEDS ORDERED: magnesium 2GM in 50ml NS 50 ML IV PRN (00:50)
[2021-03-16] MEDS ORDERED: acetaminophen 325mg tablet PO PRN (00:50)
[2021-03-16] MEDS ORDERED: magnesium Cl slow-release 64mg tablet PO PRN (00:50)
[2021-03-16] MEDS ORDERED: morphine 2 MG/ML inj. syringe IV PRN ×2 (00:50)
[2021-03-16] MEDS ORDERED: mag hydrox/Alum hydrox/simeth 30ml oral suspension PO PRN (00:50)
[2021-03-16] MEDS ORDERED: ondansetron/PF 4mg/2ml inj IV PRN (00:50)
[2021-03-16] MEDS ORDERED: magnesium 4gm in 100ml NS 100 ML IV PRN (00:50)
[2021-03-16] MEDS ORDERED: potassium Cl 40MEQ/1/2NS 520ml 520 ML IV PRN ×2 (00:50)
[2021-03-16] MEDS ORDERED: magnesium hydroxide 30ml (MOM) UD suspension PO PRN (00:50)
[2021-03-16] MEDS ORDERED: thiamine 100mg tablet PO ONE (00:55)
[2021-03-16] MEDS ORDERED: nitroGLYCERIN 0.4mg SUBLingual tab SL PRN ×2 (00:55→09:20)
[2021-03-16] MEDS: normal saline 1000ml 1,000 ML IV SCH (01:30)
[2021-03-16] MEDS ORDERED: morphine 4 MG/ML inj SYRINge IV ONE (02:00)
--- NOTE | 2021-03-16 02:34 | NUR ---
Patient in room ED 14. I have received report from VERONIQUE Mays RN and had the opportunity to ask questions and assume patient care. Patient will be going to room 9457U
--- NOTE | 2021-03-16 02:50 | NUR ---
Patient arrived on unit via wheelchair. Patient vitals stable, MRSA swab collected, tele monitor applied. Introduced self and discussed plan of care, patient complaining of nausea, denies other needs.
--- NOTE | 2021-03-16 06:22 | NUR ---
Problems reprioritized. Patient report given, questions answered & plan of care reviewed with Lindsey RN. Patient awake for report and had the opportunity to ask questions. Patient denies needs.
[2021-03-16] MEDS: HYDROcodone/acetaminophen 5mg/325mg tablet PO PRN ×2 (06:42→11:51)
--- NOTE | 2021-03-16 06:51 | NUR ---
Patient in room PCU 3013. I have received report from JANESSA MEYER and had the opportunity to ask questions and assume patient care.
[2021-03-16] MEDS: K and/or MAG REPLACEMENT MC SCH ×2 (07:00→19:43)
[2021-03-16] MEDS ORDERED: levoTHYROXINE 100mcg tablet PO SCH (08:00)
[2021-03-16] MEDS: tamsulosin 0.4mg capsule PO SCH (08:23)
[2021-03-16] MEDS: aspirin 81mg tablet.DR PO SCH (08:23)
[2021-03-16] MEDS: enoxaparin 80mg/0.8ml syringe SUBCUT SCH ×2 (08:23→20:12)
[2021-03-16] MEDS: atorvastatin 20mg tablet PO SCH (08:24)
[2021-03-16] MEDS: pantoprazole 40mg Tablet.DR PO SCH (08:24)
[2021-03-16] MEDS: folic acid 1mg tablet PO SCH (08:24)
--- NOTE | 2021-03-16 09:00 | NUR ---
PAGER ID: [phone] MESSAGE: [phone] LEDA CALHOUN NO MORNING LABS ORDERED. MARQUIS [id number]
--- NOTE | 2021-03-16 09:08 | NUR ---
PAGER ID: [phone] MESSAGE: [id number] LEDA CALHOUN, PT TSH IS 0.29, HE IS SHORT OF BREATH , RESTLESS, TACH AND DIAPHORETIC BUT NOT COMPLAINING OF CP. MARQUIS 1914
[2021-03-16] MEDS ORDERED: LORazepam 1 MG tablet PO PRN (09:10)
[2021-03-16] MEDS ORDERED: LORazepam 2 mg/ml vial IV PRN (09:10)
[2021-03-16] MEDS ORDERED: metoprolol tartrate 1mg/ml inj IV PRN (09:20)
[2021-03-16] MEDS ORDERED: aminophylline 250mg/10ml inj. IV PRN (09:20)
[2021-03-16] MEDS ORDERED: regadenoson 0.4mg/5ml syringe IV PRN (09:20)
[2021-03-16 09:38] LABS: ALANINE AMINOTRANSFERASE 73 U/L (12-78); ALBUMIN 3.2 G/DL (3.4-5.0); ALBUMIN/GLOBULIN RATIO 0.7 (1.1-1.5); ALKALINE PHOSPHATASE 121 IU/L (46-116); ANION GAP 11 (8-16); ASPARTATE AMINO TRANSFERASE 318 U/L (10-37); BILIRUBIN,TOTAL 1.8 MG/DL (0.1-1.0); BLOOD UREA NITROGEN 9 MG/DL (7-18); BUN/CREATININE RATIO 7.8 (5.4-32.0); CHLORIDE 97 MMOL/L (99-107); CHOL/HDL RATIO 2.4 (0.00-4.99); CHOLESTEROL 107 MG/DL (0-200); CREATININE 1.16 MG/DL (0.60-1.10); GLUCOSE 93 MG/DL (70-104); HDL CHOLESTEROL 45 MG/DL (35-60); LDL CHOLESTEROL 45 MG/DL (50-100); SODIUM 130 MMOL/L (135-145); TOTAL CARBON DIOXIDE 22.3 MMOL/L (24-32); TOTAL PROTEIN 7.5 G/DL (6.4-8.2); TRIGLYCERIDES 140 MG/DL (20-135); eGFR 63 ML/MIN
[2021-03-16 10:11] LABS: MAGNESIUM 2.1 MG/DL (1.5-2.4)
[2021-03-16 10:42] LABS: BASOPHILS # (AUTO) 0.1 X10'3 (0-0.2); BASOPHILS % (AUTO) 0.8 % (0-1); EOSINOPHILS # (AUTO) 0.2 X10'3 (0-0.9); EOSINOPHILS % (AUTO) 2.7 % (0-6); LYMPHOCYTES # (AUTO) 1.6 X10'3 (1.1-4.8); LYMPHOCYTES % (AUTO) 23.9 % (21-51); MEAN CORPUSCULAR HEMOGLOBIN 34.3 PG (27.0-31.0); MEAN CORPUSCULAR HGB CONC 33.3 g/dL (33.0-36.5); MEAN PLATELET VOLUME 7.5 FL (7.4-10.4); MONOCYTES # (AUTO) 0.3 X10'3 (0-0.9); MONOCYTES % (AUTO) 4.1 % (2-12); NEUTROPHILS # (AUTO) 4.7 X10'3 (1.8-7.7); NEUTROPHILS % (AUTO) 68.5 % (42-75); PLATELET COUNT 232 X10'3 (140-440); RED BLOOD COUNT 3.21 X10'6 (4.70-6.10); RED CELL DISTRIBUTION WIDTH 15.5 % (11.5-14.5); WHITE BLOOD COUNT 6.8 X10'3 (4.5-11.0)
[2021-03-16] MEDS: metoprolol tartrate 12.5mg (1/2 tablet) PO SCH ×2 (11:54→20:12)
[2021-03-16] MEDS ORDERED: PERFLUTREN PROTEIN-A MICROSPHR (Optison) 0.22 MG/ML 3ML VIAL IV ONE (12:00)
[2021-03-16] MEDS ORDERED: LEVO150T8 PO (12:58)
--- NOTE | 2021-03-16 14:01 | NUR ---
PAGER ID: [phone] MESSAGE: [id number] LEDA CALHOUN EKG CHANGES, DEEP INVERTED T WAVES. MARQUIS 3134
[2021-03-16] MEDS ORDERED: haloperidol lactate 5mg/ml inj IM ONE (14:30)
--- NOTE | 2021-03-16 22:30 | NUR ---
Patient in room PCU 3013a. I have received report from Oni MEYER and had the opportunity to ask questions and assume patient care.
[2021-03-17 06:00] VITALS: BP 131/90
--- NOTE | 2021-03-17 06:34 | NUR ---
Problems reprioritized. Patient report given, questions answered & plan of care reviewed with Roxanna MEYER.
[2021-03-17 06:50] LABS: BASOPHILS % (AUTO) 0.4 % (0-1); EOSINOPHILS # (AUTO) 0.3 X10'3 (0-0.9); EOSINOPHILS % (AUTO) 5.4 % (0-6); HEMATOCRIT 30.9 % (42.0-52.0); HEMOGLOBIN 10.6 g/dl (14.0-17.9); LYMPHOCYTES # (AUTO) 1.4 X10'3 (1.1-4.8); MEAN CORPUSCULAR HEMOGLOBIN 35.4 PG (27.0-31.0); MEAN CORPUSCULAR HGB CONC 34.3 g/dL (33.0-36.5); MEAN CORPUSCULAR VOLUME 103.2 FL (78-98); MEAN PLATELET VOLUME 7.4 FL (7.4-10.4); MONOCYTES # (AUTO) 0.4 X10'3 (0-0.9); MONOCYTES % (AUTO) 6.3 % (2-12); NEUTROPHILS % (AUTO) 64.9 % (42-75); PLATELET COUNT 222 X10'3 (140-440); RED BLOOD COUNT 2.99 X10'6 (4.70-6.10); RED CELL DISTRIBUTION WIDTH 16.1 % (11.5-14.5); WHITE BLOOD COUNT 6.2 X10'3 (4.5-11.0)
[2021-03-17 06:53] LABS: ALANINE AMINOTRANSFERASE 44 U/L (12-78); ALBUMIN 2.8 G/DL (3.4-5.0); ALBUMIN/GLOBULIN RATIO 0.7 (1.1-1.5); ALKALINE PHOSPHATASE 94 IU/L (46-116); ANION GAP 9 (8-16); ASPARTATE AMINO TRANSFERASE 58 U/L (10-37); BILIRUBIN,TOTAL 0.9 MG/DL (0.1-1.0); BLOOD UREA NITROGEN 13 MG/DL (7-18); BUN/CREATININE RATIO 10.1 (5.4-32.0); CHLORIDE 101 MMOL/L (99-107); CREATININE 1.29 MG/DL (0.60-1.10); GLUCOSE 81 MG/DL (70-104); MAGNESIUM 1.7 MG/DL (1.5-2.4); POTASSIUM 4.2 MMOL/L (3.5-5.1); SODIUM 132 MMOL/L (135-145); TOTAL CARBON DIOXIDE 21.8 MMOL/L (24-32); TOTAL PROTEIN 6.8 G/DL (6.4-8.2); eGFR 56 ML/MIN
[2021-03-17] MEDS: pantoprazole 40mg Tablet.DR PO SCH (07:30)
[2021-03-17] MEDS: levoTHYROXINE 175mcg tablet PO SCH (08:00)
[2021-03-17] MEDS: K and/or MAG REPLACEMENT MC SCH ×2 (08:00→19:36)
[2021-03-17] MEDS: aspirin 81mg tablet.DR PO SCH (08:56)
[2021-03-17] MEDS: metoprolol tartrate 12.5mg (1/2 tablet) PO SCH ×2 (08:56→19:35)
[2021-03-17] MEDS: atorvastatin 20mg tablet PO SCH (08:56)
[2021-03-17] MEDS: folic acid 1mg tablet PO SCH (08:56)
[2021-03-17] MEDS: tamsulosin 0.4mg capsule PO SCH (08:56)
[2021-03-17] MEDS: enoxaparin 80mg/0.8ml syringe SUBCUT SCH ×2 (08:58→19:34)
[2021-03-17 11:00] VITALS: BP 130/90
[2021-03-17 18:00] VITALS: BP 143/96
--- NOTE | 2021-03-17 18:02 | NUR ---
Problems reprioritized. Patient report given, questions answered & plan of care reviewed with Dawna MEYER.
--- NOTE | 2021-03-17 18:25 | NUR ---
Patient in room [facility] 3012B. I have received report from MITCH Mcknight and had the opportunity to ask questions and assume patient care. Addendum: 03/17/21 at 1859 by Alaina Coleman RN Patient in room [facility] 3103A. I have received report from MITCH Mcknight and had the opportunity to ask questions and assume patient care.
[2021-03-17] MEDS ORDERED: lisinopril 10 MG tablet PO ONE (20:20)
[2021-03-17 22:00] VITALS: BP 136/96
[2021-03-18 02:00] VITALS: BP 132/91
[2021-03-18] MEDS: normal saline 1000ml 1,000 ML IV SCH (02:11)
[2021-03-18] MEDS: HYDROcodone/acetaminophen 5mg/325mg tablet PO PRN ×2 (02:13→08:01)
[2021-03-18 06:00] VITALS: BP 125/76
--- NOTE | 2021-03-18 06:21 | NUR ---
Problems reprioritized. Patient report given, questions answered & plan of care reviewed with MITCH Mcknight.
--- NOTE | 2021-03-18 06:35 | NUR ---
Patient in room PCU 3013. I have received report from Alaina MEYER and had the opportunity to ask questions and assume patient care.
[2021-03-18 06:56] LABS: BASOPHILS # (AUTO) 0.1 X10'3 (0-0.2); EOSINOPHILS # (AUTO) 0.2 X10'3 (0-0.9); EOSINOPHILS % (AUTO) 3.4 % (0-6); HEMATOCRIT 30.6 % (42.0-52.0); HEMOGLOBIN 10.4 g/dl (14.0-17.9); LYMPHOCYTES # (AUTO) 1.5 X10'3 (1.1-4.8); LYMPHOCYTES % (AUTO) 21.8 % (21-51); MEAN CORPUSCULAR HEMOGLOBIN 35.3 PG (27.0-31.0); MEAN CORPUSCULAR HGB CONC 33.9 g/dL (33.0-36.5); MEAN CORPUSCULAR VOLUME 104.1 FL (78-98); MEAN PLATELET VOLUME 7.1 FL (7.4-10.4); MONOCYTES # (AUTO) 0.3 X10'3 (0-0.9); MONOCYTES % (AUTO) 4.5 % (2-12); NEUTROPHILS # (AUTO) 4.7 X10'3 (1.8-7.7); NEUTROPHILS % (AUTO) 69.3 % (42-75); PLATELET COUNT 234 X10'3 (140-440); RED BLOOD COUNT 2.94 X10'6 (4.70-6.10); RED CELL DISTRIBUTION WIDTH 15.6 % (11.5-14.5); WHITE BLOOD COUNT 6.8 X10'3 (4.5-11.0)
[2021-03-18 07:15] LABS: ALANINE AMINOTRANSFERASE 30 U/L (12-78); ALBUMIN 2.7 G/DL (3.4-5.0); ALBUMIN/GLOBULIN RATIO 0.6 (1.1-1.5); ALKALINE PHOSPHATASE 83 IU/L (46-116); ANION GAP 10 (8-16); ASPARTATE AMINO TRANSFERASE 32 U/L (10-37); BLOOD UREA NITROGEN 19 MG/DL (7-18); CALCIUM 8.1 MG/DL (8.5-10.1); CHLORIDE 100 MMOL/L (99-107); CREATININE 1.36 MG/DL (0.60-1.10); GLUCOSE 89 MG/DL (70-104); MAGNESIUM 1.6 MG/DL (1.5-2.4); POTASSIUM 4.4 MMOL/L (3.5-5.1); SODIUM 132 MMOL/L (135-145); TOTAL CARBON DIOXIDE 22.4 MMOL/L (24-32); eGFR 53 ML/MIN
[2021-03-18] MEDS: K and/or MAG REPLACEMENT MC SCH (08:00)
[2021-03-18] MEDS ORDERED: lisinopril 10 MG tablet PO SCH (08:00)
[2021-03-18] MEDS: tamsulosin 0.4mg capsule PO SCH (08:01)
[2021-03-18] MEDS: levoTHYROXINE 175mcg tablet PO SCH (08:01)
[2021-03-18] MEDS: aspirin 81mg tablet.DR PO SCH (08:02)
[2021-03-18] MEDS: pantoprazole 40mg Tablet.DR PO SCH (08:02)
[2021-03-18] MEDS: folic acid 1mg tablet PO SCH (08:02)
[2021-03-18] MEDS: metoprolol tartrate 12.5mg (1/2 tablet) PO SCH (08:03)
[2021-03-18] MEDS: atorvastatin 20mg tablet PO SCH (08:03)
[2021-03-18] MEDS: enoxaparin 80mg/0.8ml syringe SUBCUT SCH (08:04)
[2021-03-18 11:00] VITALS: BP 112/85
[2021-03-18 15:00] VITALS: BP 124/85
[2021-03-18] MEDS ORDERED: LOP12.5T PO (16:01)
[2021-03-18] MEDS ORDERED: LISI10TA27 PO (16:01)
== END 2021-03-18 16:54 | disposition home or self-care (01) | DRG 190 ==
LOC: ER 19:57 → ED HOLD 03-16 00:47 → PCU 3S 03-16 03:50
PROVIDERS: ADMIT Internal Medicine; ATTEND Family Medicine
PROC: 4A02XM4 Measurement of Cardiac Total Activity, External Approach (ICD-10-PCS; principal; 2021-03-16)
PROC: 3E073KZ Introduction of Other Diagnostic Substance into Coronary Artery, Percutaneous Approach (ICD-10-PCS; 2021-03-16)
DX: I21.4 Non-ST elevation (NSTEMI) myocardial infarction (principal); N17.0 Acute kidney failure with tubular necrosis; G92 Toxic encephalopathy; K85.90 Acute pancreatitis without necrosis or infection, unspecified; K86.1 Other chronic pancreatitis; T43.621A Poisoning by amphetamines, accidental (unintentional), initial encounter; E87.1 Hypo-osmolality and hyponatremia; B19.20 Unspecified viral hepatitis C without hepatic coma; D64.9 Anemia, unspecified; E03.9 Hypothyroidism, unspecified; E78.00 Pure hypercholesterolemia, unspecified; G89.29 Other chronic pain; K21.9 Gastro-esophageal reflux disease without esophagitis; E87.6 Hypokalemia; I10 Essential (primary) hypertension; F15.10 Other stimulant abuse, uncomplicated; I25.10 Atherosclerotic heart disease of native coronary artery without angina pectoris; M16.12 Unilateral primary osteoarthritis, left hip; N40.0 Benign prostatic hyperplasia without lower urinary tract symptoms; F17.210 Nicotine dependence, cigarettes, uncomplicated; I25.2 Old myocardial infarction; Z91.14 Patient's other noncompliance with medication regimen; Z95.5 Presence of coronary angioplasty implant and graft; Z59.0 Homelessness; Z88.2 Allergy status to sulfonamides; Z88.8 Allergy status to other drugs, medicaments and biological substances; Z90.49 Acquired absence of other specified parts of digestive tract; Y92.89 Other specified places as the place of occurrence of the external cause; Z79.899 Other long term (current) drug therapy; Z79.82 Long term (current) use of aspirin; Z71.51 Drug abuse counseling and surveillance of drug abuser
CPT/HCPCS: 36415; 71045; 78452; 80053; 80061; 83605; 83690; 83735; 83880; 84443; 84484; 85025; 87081; 93005; 93017; 93306; 99285; A9500; G0378; J1200; J1630; J1650; J1885; J2060; J2270; J2405; J2765; J2785; J3475; J7030

== ENCOUNTER 2021-03-31 05:24 | Inpatient (IN) | payer MEDICAID ==
[~2021-03-31] VITALS: Ht 167.6 cm; Wt 72.6 kg
[~2021-03-31 05:24] MED LIST changes: -LEVO100T PO; +LEVO150T8 PO; +LISI10TA27 PO; +LOP12.5T PO
[2021-03-31] MEDS ORDERED: nitroGLYCERIN 0.4mg SUBLingual tab SL PRN ×2 (06:20→18:20)
[2021-03-31] MEDS ORDERED: aspirin 81mg tab.chew PO ONE (06:20)
[2021-03-31 07:50] LABS: BASOPHILS # (AUTO) 0.1 X10'3 (0-0.2); BASOPHILS % (AUTO) 1.2 % (0-1); EOSINOPHILS % (AUTO) 0.4 % (0-6); HEMOGLOBIN 12.1 g/dl (14.0-17.9); LYMPHOCYTES # (AUTO) 1.2 X10'3 (1.1-4.8); LYMPHOCYTES % (AUTO) 18.5 % (21-51); MEAN CORPUSCULAR HEMOGLOBIN 34.9 PG (27.0-31.0); MEAN CORPUSCULAR HGB CONC 33.5 g/dL (33.0-36.5); MEAN CORPUSCULAR VOLUME 104.2 FL (78-98); MEAN PLATELET VOLUME 6.4 FL (7.4-10.4); MONOCYTES # (AUTO) 0.3 X10'3 (0-0.9); NEUTROPHILS % (AUTO) 74.9 % (42-75); PLATELET COUNT 342 X10'3 (140-440); RED BLOOD COUNT 3.46 X10'6 (4.70-6.10); WHITE BLOOD COUNT 6.7 X10'3 (4.5-11.0)
[2021-03-31 08:03] LABS: ALANINE AMINOTRANSFERASE 44 U/L (12-78); ALBUMIN 3.8 G/DL (3.4-5.0); ALBUMIN/GLOBULIN RATIO 0.8 (1.1-1.5); ALKALINE PHOSPHATASE 82 IU/L (46-116); ANION GAP 17 (8-16); BILIRUBIN,TOTAL 0.5 MG/DL (0.1-1.0); BLOOD UREA NITROGEN 9 MG/DL (7-18); BUN/CREATININE RATIO 8.7 (5.4-32.0); CHLORIDE 97 MMOL/L (99-107); CREATININE 1.03 MG/DL (0.60-1.10); GLUCOSE 70 MG/DL (70-104); SODIUM 132 MMOL/L (135-145); TOTAL CARBON DIOXIDE 18.3 MMOL/L (24-32); TOTAL PROTEIN 8.8 G/DL (6.4-8.2); eGFR 73 ML/MIN
[2021-03-31 08:06] LABS: ASPARTATE AMINO TRANSFERASE 68 U/L (10-37); POTASSIUM 4.1 MMOL/L (3.5-5.1)
[2021-03-31 08:50] LABS: D-DIMER 0.69 MG/L FEU (0-0.50)
[2021-03-31] MEDS ORDERED: normal saline 1000ML IV soln IVB ONE (09:15)
[2021-03-31] MEDS ORDERED: iohexol 350MG/ML 100ml bottle IV ONE (09:25)
--- NOTE | 2021-03-31 10:44 | NUR ---
PT UP TO BSC FOR BM
[2021-03-31] MEDS ORDERED: mag hydrox/Alum hydrox/simeth 30ml oral suspension PO PRN (11:30)
[2021-03-31] MEDS ORDERED: morphine 2 MG/ML inj. syringe IV PRN (11:30)
[2021-03-31] MEDS ORDERED: HYDROcodone/acetaminophen 5mg/325mg tablet PO PRN (11:30)
[2021-03-31] MEDS ORDERED: acetaminophen 325mg tablet PO PRN ×2 (11:30)
[2021-03-31] MEDS ORDERED: magnesium hydroxide 30ml (MOM) UD suspension PO PRN (11:30)
[2021-03-31] MEDS ORDERED: METO25TA6 PO (13:01)
[2021-03-31] MEDS ORDERED: LISI10TA27 PO (13:02)
[2021-03-31] MEDS: furosemide 20 MG/2 ML vial IV SCH ×2 (14:09→21:42)
[2021-03-31] MEDS: ondansetron/PF 4mg/2ml inj IV PRN (19:17)
[2021-03-31] MEDS: metoprolol tartrate 12.5mg (1/2 tablet) PO SCH (21:42)
[2021-04-01 04:10] LABS: BASOPHILS # (AUTO) 0.1 X10'3 (0-0.2); BASOPHILS % (AUTO) 1.2 % (0-1); EOSINOPHILS # (AUTO) 0.2 X10'3 (0-0.9); EOSINOPHILS % (AUTO) 3.5 % (0-6); HEMATOCRIT 36.6 % (42.0-52.0); HEMOGLOBIN 12.2 g/dl (14.0-17.9); LYMPHOCYTES # (AUTO) 1.8 X10'3 (1.1-4.8); MEAN CORPUSCULAR HGB CONC 33.4 g/dL (33.0-36.5); MEAN CORPUSCULAR VOLUME 101.7 FL (78-98); MONOCYTES # (AUTO) 0.6 X10'3 (0-0.9); MONOCYTES % (AUTO) 9.7 % (2-12); NEUTROPHILS # (AUTO) 3.2 X10'3 (1.8-7.7); NEUTROPHILS % (AUTO) 54.6 % (42-75); PLATELET COUNT 338 X10'3 (140-440); RED CELL DISTRIBUTION WIDTH 15.3 % (11.5-14.5); WHITE BLOOD COUNT 5.8 X10'3 (4.5-11.0)
[2021-04-01 04:19] LABS: ALBUMIN 3.5 G/DL (3.4-5.0); ANION GAP 12 (8-16); BLOOD UREA NITROGEN 13 MG/DL (7-18); BUN/CREATININE RATIO 9.2 (5.4-32.0); CALCIUM 8.5 MG/DL (8.5-10.1); CHLORIDE 97 MMOL/L (99-107); CREATININE 1.41 MG/DL (0.60-1.10); GLUCOSE 83 MG/DL (70-104); POTASSIUM 3.7 MMOL/L (3.5-5.1); SODIUM 133 MMOL/L (135-145); TOTAL CARBON DIOXIDE 23.7 MMOL/L (24-32); eGFR 51 ML/MIN
[2021-04-01 06:50] VITALS: BP 141/93
--- NOTE | 2021-04-01 07:01 | NUR ---
Patient in room PCU 3028. I have received report from Carrie MEYER from the ED, and had the opportunity to ask questions and assume patient care. Pt arrived to room at 0650 from ED. Pt A&O x4, VS T-98.4, BP-141/93, O2-97%RA, RR-18, SD-82.
[2021-04-01] MEDS: ondansetron/PF 4mg/2ml inj IV PRN ×2 (07:23→20:12)
[2021-04-01] MEDS: furosemide 20 MG/2 ML vial IV SCH ×2 (07:23→20:00)
[2021-04-01] MEDS: lisinopril 10 MG tablet PO SCH (07:24)
[2021-04-01] MEDS: enoxaparin 40mg/0.4ml syringe SUBCUT SCH (07:24)
[2021-04-01] MEDS: pantoprazole 40mg Tablet.DR PO SCH (07:24)
[2021-04-01] MEDS: metoprolol tartrate 12.5mg (1/2 tablet) PO SCH (07:25)
[2021-04-01] MEDS: tamsulosin 0.4mg capsule PO SCH (07:25)
[2021-04-01] MEDS: folic acid 1mg tablet PO SCH (07:25)
[2021-04-01] MEDS: levoTHYROXINE 75mcg tablet PO SCH (07:25)
[2021-04-01] MEDS: aspirin 81mg tablet.DR PO SCH (07:25)
[2021-04-01] MEDS ORDERED: atorvastatin 20mg tablet PO SCH (08:00)
[2021-04-01 11:00] VITALS: BP 106/74
[2021-04-01] MEDS: isosorbide mononitrate 30mg tab.SR.24H PO SCH (11:48)
--- NOTE | 2021-04-01 13:19 | NUR ---
Dr. Maurer saw Pt.. Stress test and angiogram were discussed as treatment options, the Pt. declined to do those treatments and wants to just use medications for treatment.
[2021-04-01 15:00] VITALS: BP 102/58
[2021-04-01 18:00] VITALS: BP 103/60
--- NOTE | 2021-04-01 18:46 | NUR ---
Problems reprioritized. Patient report given, questions answered & plan of care reviewed with Gwen MEYER.
[2021-04-01] MEDS: metoprolol tartrate 25mg tablet PO SCH (20:00)
[2021-04-01] MEDS: HYDROcodone/acetaminophen 10/325mg tab PO PRN (20:12)
[2021-04-01 22:00] VITALS: BP 104/58
[2021-04-01] MEDS: morphine 2 MG/ML inj. syringe IV PRN (23:20)
[2021-04-02] VITALS (7 sets, daily range): BP systolic 91–129; BP diastolic 61–83
[2021-04-02] MEDS: HYDROcodone/acetaminophen 10/325mg tab PO PRN (02:16)
[2021-04-02 05:50] LABS: HEMOGLOBIN 11.5 g/dl (14.0-17.9); MEAN CORPUSCULAR HEMOGLOBIN 34.1 PG (27.0-31.0); MEAN PLATELET VOLUME 7.1 FL (7.4-10.4)
[2021-04-02 05:52] LABS: MEAN CORPUSCULAR HGB CONC 32.8 g/dL (33.0-36.5); MEAN CORPUSCULAR VOLUME 103.8 FL (78-98); PLATELET COUNT 306 X10'3 (140-440); RED BLOOD COUNT 3.37 X10'6 (4.70-6.10); RED CELL DISTRIBUTION WIDTH 15.4 % (11.5-14.5); WHITE BLOOD COUNT 6.5 X10'3 (4.5-11.0)
[2021-04-02 06:00] LABS: ALBUMIN 3.4 G/DL (3.4-5.0); ANION GAP 12 (8-16); BLOOD UREA NITROGEN 32 MG/DL (7-18); BUN/CREATININE RATIO 7.9 (5.4-32.0); CALCIUM 8.7 MG/DL (8.5-10.1); CHLORIDE 93 MMOL/L (99-107); CREATININE 4.06 MG/DL (0.60-1.10); GLUCOSE 94 MG/DL (70-104); POTASSIUM 3.9 MMOL/L (3.5-5.1); SODIUM 131 MMOL/L (135-145); TOTAL CARBON DIOXIDE 26.1 MMOL/L (24-32); eGFR 15 ML/MIN
[2021-04-02] MEDS: morphine 2 MG/ML inj. syringe IV PRN (06:02)
--- NOTE | 2021-04-02 06:13 | NUR ---
Patient in room PCU 3028. I have received report from Gwen MEYER and had the opportunity to ask questions and assume patient care.
--- NOTE | 2021-04-02 06:25 | NUR ---
Problems reprioritized. Patient report given, questions answered & plan of care reviewed with AMEYA MEYER.
[2021-04-02 07:24] LABS: ANISOCYTOSIS 1+; PLATELET ESTIMATE NORMAL; TOTAL CELLS COUNTED 100
[2021-04-02] MEDS: isosorbide mononitrate 30mg tab.SR.24H PO SCH (08:00)
[2021-04-02] MEDS: furosemide 20 MG/2 ML vial IV SCH (08:00)
[2021-04-02] MEDS: metoprolol tartrate 25mg tablet PO SCH ×2 (08:00→20:07)
[2021-04-02] MEDS: lisinopril 10 MG tablet PO SCH (08:00)
[2021-04-02] MEDS: enoxaparin 40mg/0.4ml syringe SUBCUT SCH (08:49)
[2021-04-02] MEDS: folic acid 1mg tablet PO SCH (08:50)
[2021-04-02] MEDS: pantoprazole 40mg Tablet.DR PO SCH (08:50)
[2021-04-02] MEDS: tamsulosin 0.4mg capsule PO SCH (08:50)
[2021-04-02] MEDS: levoTHYROXINE 75mcg tablet PO SCH (08:50)
[2021-04-02] MEDS: aspirin 81mg tablet.DR PO SCH (08:51)
[2021-04-02] MEDS: atorvastatin 20mg tablet PO SCH (08:52)
--- NOTE | 2021-04-02 09:52 | NUR ---
Dr. Ngo paged: Caleb Warren [id number]: BUN 32 up from 13 on 04/01, Creat at 4.06 up from 1.41 on04/01. Would you like to start him on fluids? Thanks Joby [phone]
[2021-04-02] MEDS: dextrose 5%-normal saline 1,000 ML IV SCH ×2 (10:41→18:03)
--- NOTE | 2021-04-02 18:25 | NUR ---
Problems reprioritized. Patient report given, questions answered & plan of care reviewed with Corazon MEYER.
--- NOTE | 2021-04-02 18:26 | NUR ---
Patient in room U 3015. I have received report from MITCH Hemphill and had the opportunity to ask questions and assume patient care. Patient is sitting up eating dinner at this time, he has no complaints. I will continue to monitor.
--- NOTE | 2021-04-02 19:30 | NUR ---
Per Dr. Maurer order Restoril 15mg HS for sleep.
[2021-04-02] MEDS ORDERED: temazepam 15mg capsule PO PRN (20:25)
--- NOTE | 2021-04-03 00:33 | NUR ---
Problems reprioritized. Patient report given, questions answered & plan of care reviewed with MITCH Fitch.
[2021-04-03] MEDS: dextrose 5%-normal saline 1,000 ML IV SCH ×2 (01:54→09:28)
[2021-04-03 02:00] VITALS: BP 129/81
[2021-04-03 06:00] VITALS: BP 120/82
--- NOTE | 2021-04-03 06:30 | NUR ---
Patient in room PCU 3015. I have received report from Alida MEYER and had the opportunity to ask questions and assume patient care.
[2021-04-03 07:51] LABS: BASOPHILS # (AUTO) 0.1 X10'3 (0-0.2); BASOPHILS % (AUTO) 1.3 % (0-1); EOSINOPHILS # (AUTO) 0.4 X10'3 (0-0.9); EOSINOPHILS % (AUTO) 7.5 % (0-6); HEMATOCRIT 36.3 % (42.0-52.0); HEMOGLOBIN 11.9 g/dl (14.0-17.9); LYMPHOCYTES # (AUTO) 1.7 X10'3 (1.1-4.8); LYMPHOCYTES % (AUTO) 30.2 % (21-51); MEAN CORPUSCULAR HEMOGLOBIN 33.8 PG (27.0-31.0); MEAN CORPUSCULAR HGB CONC 32.8 g/dL (33.0-36.5); MEAN PLATELET VOLUME 7.4 FL (7.4-10.4); MONOCYTES # (AUTO) 0.5 X10'3 (0-0.9); MONOCYTES % (AUTO) 9.2 % (2-12); NEUTROPHILS # (AUTO) 2.9 X10'3 (1.8-7.7); NEUTROPHILS % (AUTO) 51.8 % (42-75); PLATELET COUNT 291 X10'3 (140-440); RED BLOOD COUNT 3.53 X10'6 (4.70-6.10); RED CELL DISTRIBUTION WIDTH 15.3 % (11.5-14.5); WHITE BLOOD COUNT 5.7 X10'3 (4.5-11.0)
[2021-04-03] MEDS: tamsulosin 0.4mg capsule PO SCH (08:19)
[2021-04-03] MEDS: folic acid 1mg tablet PO SCH (08:19)
[2021-04-03] MEDS: levoTHYROXINE 75mcg tablet PO SCH (08:19)
[2021-04-03] MEDS: enoxaparin 40mg/0.4ml syringe SUBCUT SCH (08:19)
[2021-04-03] MEDS: isosorbide mononitrate 30mg tab.SR.24H PO SCH (08:19)
[2021-04-03] MEDS: pantoprazole 40mg Tablet.DR PO SCH (08:20)
[2021-04-03] MEDS: aspirin 81mg tablet.DR PO SCH (08:20)
[2021-04-03] MEDS: metoprolol tartrate 25mg tablet PO SCH (08:20)
[2021-04-03] MEDS: atorvastatin 20mg tablet PO SCH (08:20)
[2021-04-03 08:42] LABS: ALBUMIN 2.9 G/DL (3.4-5.0); ANION GAP 15 (8-16); BLOOD UREA NITROGEN 26 MG/DL (7-18); BUN/CREATININE RATIO 14.8 (5.4-32.0); CALCIUM 8.1 MG/DL (8.5-10.1); CHLORIDE 99 MMOL/L (99-107); CREATININE 1.76 MG/DL (0.60-1.10); GLUCOSE 105 MG/DL (70-104); POTASSIUM 3.6 MMOL/L (3.5-5.1); SODIUM 135 MMOL/L (135-145); TOTAL CARBON DIOXIDE 21.2 MMOL/L (24-32); eGFR 39 ML/MIN
[2021-04-03 11:00] VITALS: BP 101/71
--- NOTE | 2021-04-03 13:14 | NUR ---
Patient is stable for discharge per MD orders. All instructions reviewed with patient and all questions answered. Pt will make own follow up appointment with Dr. Ramos at [facility] in [place], and was instructed they have lab draw orders for 04/05. PIV discontinued, cannula intact. night monitor discontinued. All belongings collected and went with patient. Patient was wheeled down in own wheel chair by [facility] personnel to be taken home.
== END 2021-04-03 13:40 | disposition home or self-care (01) | DRG 198 ==
LOC: ER 08:47 → ED HOLD 11:30 → EDBEDREQ 04-01 06:29 → PCU 3S 04-01 06:50
PROVIDERS: ADMIT Internal Medicine; ATTEND Internal Medicine
PROC: B32T1ZZ Computerized Tomography (CT Scan) of Left Pulmonary Artery using Low Osmolar Contrast (ICD-10-PCS; principal; 2021-03-31)
PROC: B3201ZZ Computerized Tomography (CT Scan) of Thoracic Aorta using Low Osmolar Contrast (ICD-10-PCS; 2021-03-31)
PROC: B32S1ZZ Computerized Tomography (CT Scan) of Right Pulmonary Artery using Low Osmolar Contrast (ICD-10-PCS; 2021-03-31)
DX: I25.110 Atherosclerotic heart disease of native coronary artery with unstable angina pectoris (principal); N17.0 Acute kidney failure with tubular necrosis; K86.1 Other chronic pancreatitis; E87.1 Hypo-osmolality and hyponatremia; N28.1 Cyst of kidney, acquired; I13.0 Hypertensive heart and chronic kidney disease with heart failure and stage 1 through stage 4 chronic kidney disease, or unspecified chronic kidney disease; I50.30 Unspecified diastolic (congestive) heart failure; I50.22 Chronic systolic (congestive) heart failure; B18.2 Chronic viral hepatitis C; D64.9 Anemia, unspecified; E03.9 Hypothyroidism, unspecified; E78.00 Pure hypercholesterolemia, unspecified; E78.5 Hyperlipidemia, unspecified; E86.0 Dehydration; E87.6 Hypokalemia; F15.10 Other stimulant abuse, uncomplicated; F17.210 Nicotine dependence, cigarettes, uncomplicated; J44.9 Chronic obstructive pulmonary disease, unspecified; K21.9 Gastro-esophageal reflux disease without esophagitis; M16.10 Unilateral primary osteoarthritis, unspecified hip; N18.9 Chronic kidney disease, unspecified; N40.0 Benign prostatic hyperplasia without lower urinary tract symptoms; G89.29 Other chronic pain; M25.552 Pain in left hip; F10.20 Alcohol dependence, uncomplicated; G40.909 Epilepsy, unspecified, not intractable, without status epilepticus; T50.1X5A Adverse effect of loop [high-ceiling] diuretics, initial encounter; Z60.2 Problems related to living alone; Z79.82 Long term (current) use of aspirin; Z79.899 Other long term (current) drug therapy; Z82.3 Family history of stroke; I25.2 Old myocardial infarction; Z91.14 Patient's other noncompliance with medication regimen; Z90.49 Acquired absence of other specified parts of digestive tract; Z95.5 Presence of coronary angioplasty implant and graft; Z99.3 Dependence on wheelchair; Z59.0 Homelessness; Z88.2 Allergy status to sulfonamides; Z88.8 Allergy status to other drugs, medicaments and biological substances; Z71.51 Drug abuse counseling and surveillance of drug abuser; Y92.230 Patient room in hospital as the place of occurrence of the external cause
CPT/HCPCS: 36415; 71045; 71275; 80048; 80053; 83880; 84443; 84484; 85007; 85025; 85379; 87081; 93005; 97161; 97530; 99285; G0378; J1650; J1940; J2270; J2405; J7030; J7042; Q9967

== ENCOUNTER 2021-05-15 21:04 | Inpatient (IN) | payer MEDICAID ==
[~2021-05-15] VITALS: Ht 167.6 cm; Wt 72.7 kg
[~2021-05-15 21:04] MED LIST changes: -HYDR-4383 PO; -LISI10TA27 PO; -LOP12.5T PO; +METO25TA6 PO; -ONDA4TAB6 PO
[2021-05-15 21:27] LABS: BASOPHILS # (AUTO) 0.1 X10'3 (0-0.2); BASOPHILS % (AUTO) 0.9 % (0-1); EOSINOPHILS % (AUTO) 0.3 % (0-6); HEMOGLOBIN 12.2 g/dl (14.0-17.9); LYMPHOCYTES # (AUTO) 1.6 X10'3 (1.1-4.8); LYMPHOCYTES % (AUTO) 23.4 % (21-51); MEAN CORPUSCULAR HEMOGLOBIN 32.8 PG (27.0-31.0); MEAN CORPUSCULAR HGB CONC 32.9 g/dL (33.0-36.5); MEAN CORPUSCULAR VOLUME 99.6 FL (78-98); MEAN PLATELET VOLUME 6.1 FL (7.4-10.4); MONOCYTES # (AUTO) 0.5 X10'3 (0-0.9); MONOCYTES % (AUTO) 6.7 % (2-12); NEUTROPHILS # (AUTO) 4.8 X10'3 (1.8-7.7); NEUTROPHILS % (AUTO) 68.7 % (42-75); PLATELET COUNT 242 X10'3 (140-440); RED BLOOD COUNT 3.71 X10'6 (4.70-6.10); RED CELL DISTRIBUTION WIDTH 14.5 % (11.5-14.5)
[2021-05-15] MEDS ORDERED: morphine 4 MG/ML inj SYRINge IV ONE (21:30)
[2021-05-15 21:43] LABS: ALANINE AMINOTRANSFERASE 46 U/L (12-78); ALBUMIN 3.4 G/DL (3.4-5.0); ALBUMIN/GLOBULIN RATIO 0.8 (1.1-1.5); ALKALINE PHOSPHATASE 96 IU/L (46-116); ANION GAP 16 (8-16); ASPARTATE AMINO TRANSFERASE 83 U/L (10-37); BILIRUBIN,TOTAL 0.2 MG/DL (0.1-1.0); BLOOD UREA NITROGEN 11 MG/DL (7-18); BUN/CREATININE RATIO 8.7 (5.4-32.0); CALCIUM 7.8 MG/DL (8.5-10.1); CHLORIDE 96 MMOL/L (99-107); CREATININE 1.26 MG/DL (0.60-1.10); GLUCOSE 108 MG/DL (70-104); POTASSIUM 3.4 MMOL/L (3.5-5.1); SODIUM 132 MMOL/L (135-145); TOTAL CARBON DIOXIDE 19.7 MMOL/L (24-32); TOTAL PROTEIN 7.7 G/DL (6.4-8.2); eGFR 58 ML/MIN
--- NOTE | 2021-05-15 21:48 | NUR ---
NOTIFIED RANDEE PAYNE PT IS NAUSEAOUS AND REQUESTING FOR NAUSEA MEDS. PER PA HE WILL ORDER IT.
[2021-05-15] MEDS ORDERED: ondansetron/PF 4mg/2ml inj IV ONE (21:50)
[2021-05-15] MEDS ORDERED: aspirin 81mg tab.chew PO ONE (22:20)
[2021-05-15] MEDS ORDERED: nitroGLYCERIN-Tridil 50MG/D5W 250 ML IV SCH ×3 (22:20→23:20)
[2021-05-15] MEDS ORDERED: acetaminophen 325mg tablet PO PRN ×2 (22:35)
[2021-05-15] MEDS ORDERED: magnesium 2GM in 50ml NS 50 ML IV PRN (22:35)
[2021-05-15] MEDS ORDERED: albuterol 2.5 MG/3 ML nebule NEB PRN (22:35)
[2021-05-15] MEDS ORDERED: haloperidol lactate 5mg/ml inj IM PRN (22:35)
[2021-05-15] MEDS ORDERED: ipratropium/albuterol 3ml nebule NEB PRN (22:35)
[2021-05-15] MEDS ORDERED: potassium Cl 20 mEq SR tablet PO PRN ×2 (22:35)
[2021-05-15] MEDS ORDERED: thiamine inj. 100 MG in normal saline 100ml IV soln 100 ML IV ONE (22:35)
[2021-05-15] MEDS ORDERED: HYDROcodone/acetaminophen 5mg/325mg tablet PO PRN (22:35)
[2021-05-15] MEDS ORDERED: haloperidol 5mg tablet PO PRN (22:35)
[2021-05-15] MEDS ORDERED: magnesium hydroxide 30ml (MOM) UD suspension PO PRN (22:35)
[2021-05-15] MEDS ORDERED: magnesium 4gm in 100ml NS 100 ML IV PRN (22:35)
[2021-05-15] MEDS ORDERED: HYDROcodone/acetaminophen 10/325mg tab PO PRN (22:35)
[2021-05-15] MEDS ORDERED: potassium Cl 40MEQ/1/2NS 520ml 520 ML IV PRN ×2 (22:35)
[2021-05-15 22:51] LABS: ETHANOL 0.103 GM/DL (0.0-0.010)
--- NOTE | 2021-05-15 23:30 | NUR ---
DR FAGAN AT BEDSIDE.AGREES TO GIVE ATIVIAN AND ZOFRAN FOR NAUSEA AND ANXITEY.
[2021-05-15] MEDS: ondansetron/PF 4mg/2ml inj IV PRN (23:40)
[2021-05-15] MEDS: LORazepam 2 mg/ml vial IV PRN (23:40)
[2021-05-16] VITALS (14 sets, daily range): BP systolic 130–182; BP diastolic 86–118
--- NOTE | 2021-05-16 00:30 | NUR ---
Patient in room ED 7. I have received report from SUPERVISOR CURING ROOM KERLINE and had the opportunity to ask questions and I will assume care of patient when he arrives to the floor..
--- NOTE | 2021-05-16 02:20 | NUR ---
Pt arrived to unit via gurney. VSS. pt alert but sleepy. even and fall chest rise. Nitro gtt running 5mcg/min / 1.5ml/hr per MD orders. pt placed on bedside mobile number 64 SR HR 95. Will continue to monitor.
[2021-05-16 02:57] LABS: BASOPHILS # (AUTO) 0.1 X10'3 (0-0.2); BASOPHILS % (AUTO) 1.2 % (0-1); EOSINOPHILS % (AUTO) 0.1 % (0-6); HEMATOCRIT 38.4 % (42.0-52.0); HEMOGLOBIN 12.6 g/dl (14.0-17.9); LYMPHOCYTES # (AUTO) 1.6 X10'3 (1.1-4.8); LYMPHOCYTES % (AUTO) 14.6 % (21-51); MEAN CORPUSCULAR HEMOGLOBIN 32.1 PG (27.0-31.0); MEAN CORPUSCULAR HGB CONC 32.8 g/dL (33.0-36.5); MEAN CORPUSCULAR VOLUME 97.8 FL (78-98); MEAN PLATELET VOLUME 6.4 FL (7.4-10.4); MONOCYTES # (AUTO) 0.6 X10'3 (0-0.9); MONOCYTES % (AUTO) 5.2 % (2-12); NEUTROPHILS # (AUTO) 8.7 X10'3 (1.8-7.7); NEUTROPHILS % (AUTO) 78.9 % (42-75); PLATELET COUNT 234 X10'3 (140-440); RED BLOOD COUNT 3.93 X10'6 (4.70-6.10); RED CELL DISTRIBUTION WIDTH 14.3 % (11.5-14.5); WHITE BLOOD COUNT 11.1 X10'3 (4.5-11.0)
[2021-05-16 03:17] LABS: ALANINE AMINOTRANSFERASE 47 U/L (12-78); ALBUMIN 3.6 G/DL (3.4-5.0); ALBUMIN/GLOBULIN RATIO 0.8 (1.1-1.5); ALKALINE PHOSPHATASE 106 IU/L (46-116); AMYLASE 71 U/L (25-115); ANION GAP 10 (8-16); ASPARTATE AMINO TRANSFERASE 82 U/L (10-37); BILIRUBIN,TOTAL 0.3 MG/DL (0.1-1.0); BLOOD UREA NITROGEN 11 MG/DL (7-18); BUN/CREATININE RATIO 8.7 (5.4-32.0); CHLORIDE 97 MMOL/L (99-107); CHOL/HDL RATIO 1.9 (0.00-4.99); CHOLESTEROL 118 MG/DL (0-200); CREATININE 1.27 MG/DL (0.60-1.10); GLUCOSE 90 MG/DL (70-104); HDL CHOLESTEROL 61 MG/DL (35-60); LDL CHOLESTEROL 36 MG/DL (50-100); LIPASE 63 U/L (73-393); MAGNESIUM 1.1 MG/DL (1.5-2.4); POTASSIUM 3.9 MMOL/L (3.5-5.1); SODIUM 132 MMOL/L (135-145); TOTAL CARBON DIOXIDE 25.2 MMOL/L (24-32); TOTAL PROTEIN 8.1 G/DL (6.4-8.2); TRIGLYCERIDES 92 MG/DL (20-135); eGFR 57 ML/MIN
--- NOTE | 2021-05-16 06:10 | NUR ---
Problems reprioritized. Patient report given, questions answered & plan of care reviewed with Marcia MEYER.
--- NOTE | 2021-05-16 06:56 | NUR ---
Patient in room PCU 3027. I have received report from MITCH MORAN, and had the opportunity to ask questions and assume patient care.
[2021-05-16] MEDS: K and/or MAG REPLACEMENT MC SCH ×2 (08:00→20:00)
[2021-05-16] MEDS ORDERED: folic acid inj. 2 MG, thiamine inj. 100 MG, MVI, adult No.4 with vit. K 10 ML in dextro... IV SCH ×4 (08:00)
[2021-05-16] MEDS: docusate sod 100mg capsule PO SCH ×2 (08:10→20:47)
[2021-05-16] MEDS: folic acid 1mg tablet PO SCH (08:10)
[2021-05-16] MEDS: thiamine 100mg tablet PO SCH (08:11)
[2021-05-16] MEDS: multivitamins, therapeutics tablet PO SCH (08:11)
[2021-05-16] MEDS ORDERED: lisinopril 20mg tablet PO ONE (08:40)
[2021-05-16] MEDS: pantoprazole 40 MG vial IV SCH (09:38)
[2021-05-16] MEDS: LORazepam 2 mg/ml vial IV PRN ×2 (11:42→15:44)
--- NOTE | 2021-05-16 12:09 | NUR ---
PAGE SENT PAGER ID: [phone] MESSAGE: [id number], UNIQUE TOMPKINS, 1200 BP - 139/86, HR 81 AFTER ATIVAN 2 MG. THANK YOU, BETTY [id number]
[2021-05-16] MEDS: mag hydrox/Alum hydrox/simeth 30ml oral suspension PO PRN ×2 (14:31→21:57)
[2021-05-16] MEDS: ondansetron/PF 4mg/2ml inj IV PRN (15:44)
[2021-05-16] MEDS ORDERED: nitroGLYCERIN 0.4mg SUBLingual tab SL PRN (17:30)
--- NOTE | 2021-05-16 18:47 | NUR ---
Problems reprioritized. Patient report given, questions answered & plan of care reviewed with MITCH CONN.
[2021-05-16] MEDS ORDERED: enoxaparin 40mg/0.4ml syringe SQ SCH (20:00)
[2021-05-16] MEDS: cloNIDine 0.1 mg tablet PO SCH (20:50)
[2021-05-17 02:00] VITALS: BP 155/89
[2021-05-17 06:00] VITALS: BP 170/99
--- NOTE | 2021-05-17 06:25 | NUR ---
Patient in room PCU 3027. I have received report from Mariola MEYER and had the opportunity to ask questions and assume patient care.
[2021-05-17 07:53] LABS: BASOPHILS % (AUTO) 0.6 % (0-1); EOSINOPHILS # (AUTO) 0.2 X10'3 (0-0.9); EOSINOPHILS % (AUTO) 3.8 % (0-6); HEMATOCRIT 35.3 % (42.0-52.0); HEMOGLOBIN 11.9 g/dl (14.0-17.9); LYMPHOCYTES # (AUTO) 1.9 X10'3 (1.1-4.8); LYMPHOCYTES % (AUTO) 32.4 % (21-51); MEAN CORPUSCULAR HEMOGLOBIN 32.8 PG (27.0-31.0); MEAN CORPUSCULAR HGB CONC 33.6 g/dL (33.0-36.5); MEAN CORPUSCULAR VOLUME 97.4 FL (78-98); MEAN PLATELET VOLUME 6.9 FL (7.4-10.4); MONOCYTES # (AUTO) 0.4 X10'3 (0-0.9); MONOCYTES % (AUTO) 6.4 % (2-12); NEUTROPHILS # (AUTO) 3.4 X10'3 (1.8-7.7); NEUTROPHILS % (AUTO) 56.8 % (42-75); PLATELET COUNT 181 X10'3 (140-440); RED BLOOD COUNT 3.63 X10'6 (4.70-6.10); RED CELL DISTRIBUTION WIDTH 14.3 % (11.5-14.5)
[2021-05-17] MEDS ORDERED: levoTHYROXINE 75mcg tablet PO SCH (08:00)
[2021-05-17] MEDS ORDERED: atorvastatin 20mg tablet PO SCH (08:00)
[2021-05-17] MEDS ORDERED: tamsulosin 0.4mg capsule PO SCH (08:00)
[2021-05-17] MEDS ORDERED: folic acid 0.4mg tablet PO SCH (08:00)
[2021-05-17] MEDS ORDERED: non-formulary drug (Omeprazole 1 CAP) PO SCH (08:00)
[2021-05-17] MEDS: K and/or MAG REPLACEMENT MC SCH (08:00)
[2021-05-17 08:15] LABS: ALANINE AMINOTRANSFERASE 30 U/L (12-78); ALBUMIN 2.8 G/DL (3.4-5.0); ALBUMIN/GLOBULIN RATIO 0.7 (1.1-1.5); ALKALINE PHOSPHATASE 87 IU/L (46-116); AMYLASE 65 U/L (25-115); ANION GAP 11 (8-16); ASPARTATE AMINO TRANSFERASE 38 U/L (10-37); BILIRUBIN,TOTAL 0.3 MG/DL (0.1-1.0); BLOOD UREA NITROGEN 18 MG/DL (7-18); CALCIUM 8.3 MG/DL (8.5-10.1); CHLORIDE 100 MMOL/L (99-107); CREATININE 1.38 MG/DL (0.60-1.10); GLUCOSE 103 MG/DL (70-104); LIPASE 144 U/L (73-393); PHOSPHORUS 2.9 MG/DL (2.3-4.5); POTASSIUM 3.7 MMOL/L (3.5-5.1); SODIUM 135 MMOL/L (135-145); TOTAL CARBON DIOXIDE 24.4 MMOL/L (24-32); eGFR 52 ML/MIN
[2021-05-17] MEDS: multivitamins, therapeutics tablet PO SCH (08:44)
[2021-05-17] MEDS: thiamine 100mg tablet PO SCH (08:44)
[2021-05-17] MEDS: folic acid 1mg tablet PO SCH (08:44)
[2021-05-17] MEDS: docusate sod 100mg capsule PO SCH (08:45)
[2021-05-17] MEDS: cloNIDine 0.1 mg tablet PO SCH (08:45)
[2021-05-17] MEDS: pantoprazole 40 MG vial IV SCH (08:50)
--- NOTE | 2021-05-17 08:57 | NUR ---
PAGER ID: [phone] MESSAGE: Re: Caleb Knapp. Room: 302. Pt states he will being leaving AMA at 1030. -[facility] #[id number] -Dr. Julio paged concerning Pt wanting to leave AMA
--- NOTE | 2021-05-17 10:00 | NUR ---
Pt left AMA. Dr. Julio paged and is aware. Spoke with Pt concerning the risks of leaving AMA with out completing treatment and being evaluated by MD. Pt stated that he understood this. Pt signed AMA form. IV removed, canula intact. tele-box removed and returned to [employer]. Pt's belongings gathered and sent with Pt. Pt wheeled down to lobby in wheelchair. Pt left with phillip cargo that he called an set up hiomself.
[2021-05-17] MEDS ORDERED: LORazepam 2 mg/ml vial IV PRN (22:35)
[2021-05-17] MEDS ORDERED: LORazepam 1 MG tablet PO PRN (22:35)
[2021-05-19] MEDS ORDERED: LORazepam 2 mg/ml vial IV PRN (22:35)
[2021-05-19] MEDS ORDERED: LORazepam 1 MG tablet PO PRN (22:35)
== END 2021-05-17 10:00 | disposition left against medical advice (07) | DRG 198 ==
LOC: ER 21:04 → ED HOLD 22:47 → PCU 3S 05-16 02:20
PROVIDERS: ADMIT Family Medicine; ATTEND Family Medicine
DX: I25.119 Atherosclerotic heart disease of native coronary artery with unspecified angina pectoris (principal); N17.9 Acute kidney failure, unspecified; E87.1 Hypo-osmolality and hyponatremia; B19.20 Unspecified viral hepatitis C without hepatic coma; E03.9 Hypothyroidism, unspecified; E78.00 Pure hypercholesterolemia, unspecified; G89.29 Other chronic pain; K21.9 Gastro-esophageal reflux disease without esophagitis; E78.5 Hyperlipidemia, unspecified; F15.10 Other stimulant abuse, uncomplicated; F17.210 Nicotine dependence, cigarettes, uncomplicated; E87.6 Hypokalemia; I12.9 Hypertensive chronic kidney disease with stage 1 through stage 4 chronic kidney disease, or unspecified chronic kidney disease; F10.239 Alcohol dependence with withdrawal, unspecified; M25.452 Effusion, left hip; Z53.29 Procedure and treatment not carried out because of patient's decision for other reasons; N18.9 Chronic kidney disease, unspecified; J44.9 Chronic obstructive pulmonary disease, unspecified; M16.12 Unilateral primary osteoarthritis, left hip; N40.0 Benign prostatic hyperplasia without lower urinary tract symptoms; I25.2 Old myocardial infarction; Z59.0 Homelessness; Z88.2 Allergy status to sulfonamides; Z88.8 Allergy status to other drugs, medicaments and biological substances; Z90.49 Acquired absence of other specified parts of digestive tract; Z56.0 Unemployment, unspecified; Z79.899 Other long term (current) drug therapy; Z79.82 Long term (current) use of aspirin; Z71.6 Tobacco abuse counseling
CPT/HCPCS: 36415; 71045; 74176; 80053; 80061; 80320; 82150; 82948; 83690; 83735; 83880; 84100; 84484; 85025; 85610; 87081; 93005; 94760; 96365; 97161; 97530; 99285; C9113; G0378; J1650; J2060; J2270; J2405; J3411; J3475; J3490

== ENCOUNTER 2021-05-22 19:16 | Emergency (ER) | payer MEDICAID ==
[~2021-05-22] VITALS: Ht 167.6 cm; Wt 72.7 kg
[~2021-05-22 19:16] MED LIST changes: -ASPI-1475 PO; -METO25TA6 PO
[2021-05-22 19:42] LABS: BASOPHILS # (AUTO) 0.1 X10'3 (0-0.2); BASOPHILS % (AUTO) 1.1 % (0-1); EOSINOPHILS % (AUTO) 0.3 % (0-6); HEMATOCRIT 39.3 % (42.0-52.0); LYMPHOCYTES % (AUTO) 22.9 % (21-51); MEAN CORPUSCULAR HEMOGLOBIN 32.2 PG (27.0-31.0); MEAN CORPUSCULAR VOLUME 97.4 FL (78-98); MEAN PLATELET VOLUME 6.6 FL (7.4-10.4); MONOCYTES # (AUTO) 0.6 X10'3 (0-0.9); MONOCYTES % (AUTO) 7.5 % (2-12); NEUTROPHILS # (AUTO) 5.9 X10'3 (1.8-7.7); NEUTROPHILS % (AUTO) 68.2 % (42-75); PLATELET COUNT 316 X10'3 (140-440); RED BLOOD COUNT 4.03 X10'6 (4.70-6.10); RED CELL DISTRIBUTION WIDTH 14.3 % (11.5-14.5); WHITE BLOOD COUNT 8.6 X10'3 (4.5-11.0)
[2021-05-22 19:55] LABS: ALANINE AMINOTRANSFERASE 45 U/L (12-78); ALBUMIN 3.5 G/DL (3.4-5.0); ALBUMIN/GLOBULIN RATIO 0.8 (1.1-1.5); ALKALINE PHOSPHATASE 83 IU/L (46-116); ANION GAP 15 (8-16); ASPARTATE AMINO TRANSFERASE 54 U/L (10-37); BILIRUBIN,TOTAL 0.4 MG/DL (0.1-1.0); BLOOD UREA NITROGEN 17 MG/DL (7-18); BUN/CREATININE RATIO 12.7 (5.4-32.0); CALCIUM 8.7 MG/DL (8.5-10.1); CHLORIDE 94 MMOL/L (99-107); CREATININE 1.34 MG/DL (0.60-1.10); GLUCOSE 112 MG/DL (70-104); POTASSIUM 3.4 MMOL/L (3.5-5.1); SODIUM 131 MMOL/L (135-145); TOTAL CARBON DIOXIDE 21.8 MMOL/L (24-32); TOTAL PROTEIN 8.1 G/DL (6.4-8.2); eGFR 54 ML/MIN
[2021-05-22 20:03] LABS: TROPONIN I < 0.04 NG/ML (0.0-0.05)
[2021-05-22 20:15] VITALS: BP 149/111
[2021-05-22 20:22] LABS: ETHANOL < 0.010 GM/DL (0.0-0.010)
[2021-05-22] MEDS ORDERED: normal saline 1000ML IV soln IVB ONE (20:30)
[2021-05-22] MEDS ORDERED: ondansetron/PF 4mg/2ml inj IV ONE (20:30)
[2021-05-22] MEDS ORDERED: LIDOcaine Viscous 15ml cup MM ONE (21:15)
[2021-05-22] MEDS ORDERED: sucralfate 1gm/10ml UD suspension PO ONE (21:15)
[2021-05-22] MEDS ORDERED: mag hydrox/Alum hydrox/simeth 30ml oral suspension PO ONE (21:15)
[2021-05-22] MEDS ORDERED: sucralfate 1 gm tablet PO ONE (21:30)
== END 2021-05-22 21:42 | disposition home or self-care (01) ==
LOC: ER 19:17
DX: R07.89 Other chest pain (principal); F15.10 Other stimulant abuse, uncomplicated; R11.2 Nausea with vomiting, unspecified; R05 Cough; I25.10 Atherosclerotic heart disease of native coronary artery without angina pectoris; E78.00 Pure hypercholesterolemia, unspecified; I10 Essential (primary) hypertension; I25.2 Old myocardial infarction; E03.9 Hypothyroidism, unspecified; G89.29 Other chronic pain; Z86.19 Personal history of other infectious and parasitic diseases; Z90.89 Acquired absence of other organs; Z90.49 Acquired absence of other specified parts of digestive tract; Z98.890 Other specified postprocedural states; Z72.89 Other problems related to lifestyle; Z56.0 Unemployment, unspecified; Z59.0 Homelessness; Z88.2 Allergy status to sulfonamides; Z88.8 Allergy status to other drugs, medicaments and biological substances; Z79.899 Other long term (current) drug therapy
CPT/HCPCS: 36415; 71045; 80053; 80320; 83880; 84484; 85025; 93005; 96374; 99285; J2405; J7030

== ENCOUNTER 2021-10-12 23:56 | Inpatient (IN) | payer MEDICAID ==
[~2021-10-12] VITALS: Ht 167.6 cm; Wt 72.7 kg
[2021-10-13 01:09] LABS: ALANINE AMINOTRANSFERASE 16 U/L (12-78); ALBUMIN 3.4 G/DL (3.4-5.0); ALBUMIN/GLOBULIN RATIO 0.7 (1.1-1.5); ALKALINE PHOSPHATASE 95 IU/L (46-116); ANION GAP 14 (8-16); ASPARTATE AMINO TRANSFERASE 31 U/L (10-37); BASOPHILS # (AUTO) 0.1 X10'3 (0-0.2); BASOPHILS % (AUTO) 1.4 % (0-1); BILIRUBIN,TOTAL 0.2 MG/DL (0.1-1.0); BLOOD UREA NITROGEN 14 MG/DL (7-18); BUN/CREATININE RATIO 10.8 (5.4-32.0); CALCIUM 8.1 MG/DL (8.5-10.1); CHLORIDE 102 MMOL/L (99-107); EOSINOPHILS % (AUTO) 0.2 % (0-6); GLUCOSE 92 MG/DL (70-104); HEMATOCRIT 33.6 % (42.0-52.0); HEMOGLOBIN 11.3 g/dl (14.0-17.9); LYMPHOCYTES % (AUTO) 32.2 % (21-51); MEAN CORPUSCULAR HEMOGLOBIN 32.1 PG (27.0-31.0); MEAN CORPUSCULAR HGB CONC 33.8 g/dL (33.0-36.5); MEAN CORPUSCULAR VOLUME 95.1 FL (78-98); MEAN PLATELET VOLUME 6.3 FL (7.4-10.4); MONOCYTES # (AUTO) 0.5 X10'3 (0-0.9); MONOCYTES % (AUTO) 7.6 % (2-12); NEUTROPHILS # (AUTO) 3.6 X10'3 (1.8-7.7); NEUTROPHILS % (AUTO) 58.6 % (42-75); PLATELET COUNT 229 X10'3 (140-440); POTASSIUM 3.3 MMOL/L (3.5-5.1); RED BLOOD COUNT 3.53 X10'6 (4.70-6.10); RED CELL DISTRIBUTION WIDTH 15.5 % (11.5-14.5); SODIUM 136 MMOL/L (135-145); TOTAL CARBON DIOXIDE 19.8 MMOL/L (24-32); TOTAL PROTEIN 8.2 G/DL (6.4-8.2); WHITE BLOOD COUNT 6.1 X10'3 (4.5-11.0); eGFR 56 ML/MIN
[2021-10-13 01:17] LABS: BILIRUBIN,DIRECT 0.1 MG/DL (0-0.3); LIPASE 315 U/L (73-393)
[2021-10-13 02:38] LABS: URINE AMPHETAMINE SCREEN POSITIVE (Neg); URINE BARBITUATE SCREEN NEGATIVE (Neg); URINE BENZODIAZEPINES SCREEN NEGATIVE (Neg); URINE CANNABINOID SCREEN POSITIVE (Neg); URINE COCAINE SCREEN NEGATIVE (Neg); URINE METHADONE SCREEN NEGATIVE (Neg); URINE OPIATE SCREEN NEGATIVE (Neg); URINE PHENCYCLIDINE SCREEN NEGATIVE (Neg)
[2021-10-13] MEDS ORDERED: mag hydrox/Alum hydrox/simeth 30ml oral suspension PO PRN (03:35)
[2021-10-13] MEDS ORDERED: metoprolol tartrate 1mg/ml inj IV PRN (03:35)
[2021-10-13] MEDS ORDERED: magnesium 2GM in 50ml NS 50 ML IV PRN (03:35)
[2021-10-13] MEDS ORDERED: ondansetron/PF 4mg/2ml inj IV PRN (03:35)
[2021-10-13] MEDS ORDERED: HYDROcodone/acetaminophen 10/325mg tab PO PRN (03:35)
[2021-10-13] MEDS ORDERED: morphine 2 MG/ML inj. syringe IV PRN (03:35)
[2021-10-13] MEDS ORDERED: regadenoson 0.4mg/5ml syringe IV PRN (03:35)
[2021-10-13] MEDS ORDERED: PERFLUTREN PROTEIN-A MICROSPHR (Optison) 0.22 MG/ML 3ML VIAL IV PRN (03:35)
[2021-10-13] MEDS ORDERED: magnesium 4gm in 100ml NS 100 ML IV PRN (03:35)
[2021-10-13] MEDS ORDERED: HYDROcodone/acetaminophen 5mg/325mg tablet PO PRN (03:35)
[2021-10-13] MEDS ORDERED: magnesium hydroxide 30ml (MOM) UD suspension PO PRN (03:35)
[2021-10-13] MEDS ORDERED: aminophylline 250mg/10ml inj. IV PRN (03:35)
[2021-10-13] MEDS ORDERED: magnesium Cl slow-release 64mg tablet PO PRN (03:35)
[2021-10-13] MEDS ORDERED: nitroGLYCERIN 0.4mg SUBLingual tab SL PRN ×2 (03:35→13:15)
[2021-10-13] MEDS ORDERED: potassium Cl 20 mEq SR tablet PO PRN ×2 (03:35)
[2021-10-13] MEDS ORDERED: acetaminophen 325mg tablet PO PRN ×2 (03:35)
[2021-10-13] MEDS: K and/or MAG REPLACEMENT MC SCH ×2 (07:58→20:00)
[2021-10-13] MEDS: heparin, porcine 5000 units/ml vial SQ SCH ×3 (08:00→23:50)
[2021-10-13] MEDS ORDERED: heparin, porcine 5000 units/ml vial SQ SCH (08:00)
[2021-10-13] MEDS: morphine 2 MG/ML inj. syringe IV PRN ×2 (08:12→22:26)
[2021-10-13] MEDS: normal saline 1000ml 1,000 ML IV SCH ×3 (08:20→22:26)
[2021-10-13] MEDS: hydrALAZINE 20mg/ml inj. IV PRN ×2 (09:53→21:08)
[2021-10-13] MEDS ORDERED: haloperidol lactate 5mg/ml inj IM PRN (10:50)
[2021-10-13] MEDS ORDERED: haloperidol 5mg tablet PO PRN (10:50)
[2021-10-13] MEDS ORDERED: folic acid 1mg tablet PO SCH (10:51)
[2021-10-13] MEDS: LORazepam 2 mg/ml vial IV PRN ×3 (11:04→13:52)
[2021-10-13] MEDS: thiamine 100mg tablet PO SCH (11:04)
[2021-10-13] MEDS ORDERED: POTA8CAP20 PO (11:36)
--- NOTE | 2021-10-13 12:30 | NUR ---
Ordered liquid diet per admitting physician.
--- NOTE | 2021-10-13 13:25 | NUR ---
Patient removed IV fluid tubing from IV and removed all monitoring devices; requests to go outside. IV fluids reconnected and monitoring paused. Patient eating liquid diet tray.
--- NOTE | 2021-10-13 13:43 | NUR ---
Patient pulled out IV; new IV placed in right AC.
--- NOTE | 2021-10-13 15:31 | NUR ---
Patient pulled out IV. Patient sitting in chair with one shoe on wrong foot. Patient continues to be agitated.
--- NOTE | 2021-10-13 15:33 | NUR ---
Patient refuses to keep monitoring devices on.
[2021-10-13 22:30] VITALS: BP 150/98
[2021-10-13] MEDS: potassium CL 10mEq/100ml bag 100 ML IV PRN ×2 (22:34→23:50)
[2021-10-14] VITALS (9 sets, daily range): BP systolic 129–161; BP diastolic 68–104
[2021-10-14] MEDS: potassium CL 10mEq/100ml bag 100 ML IV PRN ×2 (00:43→01:41)
[2021-10-14] MEDS: morphine 2 MG/ML inj. syringe IV PRN (04:57)
[2021-10-14 05:03] LABS: BASOPHILS # (AUTO) 0.1 X10'3 (0-0.2); BASOPHILS % (AUTO) 1.2 % (0-1); EOSINOPHILS # (AUTO) 0.2 X10'3 (0-0.9); EOSINOPHILS % (AUTO) 3.4 % (0-6); HEMOGLOBIN 12.1 g/dl (14.0-17.9); LYMPHOCYTES # (AUTO) 1.6 X10'3 (1.1-4.8); LYMPHOCYTES % (AUTO) 28.6 % (21-51); MEAN CORPUSCULAR HGB CONC 33.5 g/dL (33.0-36.5); MEAN CORPUSCULAR VOLUME 95.5 FL (78-98); MEAN PLATELET VOLUME 6.3 FL (7.4-10.4); MONOCYTES # (AUTO) 0.6 X10'3 (0-0.9); MONOCYTES % (AUTO) 11.2 % (2-12); NEUTROPHILS # (AUTO) 3.1 X10'3 (1.8-7.7); NEUTROPHILS % (AUTO) 55.6 % (42-75); PLATELET COUNT 198 X10'3 (140-440); RED BLOOD COUNT 3.77 X10'6 (4.70-6.10); RED CELL DISTRIBUTION WIDTH 16.1 % (11.5-14.5); WHITE BLOOD COUNT 5.6 X10'3 (4.5-11.0)
[2021-10-14 05:15] LABS: ALANINE AMINOTRANSFERASE 15 U/L (12-78); ALBUMIN 3.1 G/DL (3.4-5.0); ALBUMIN/GLOBULIN RATIO 0.7 (1.1-1.5); ALKALINE PHOSPHATASE 91 IU/L (46-116); AMYLASE 108 U/L (25-115); ANION GAP 9 (8-16); ASPARTATE AMINO TRANSFERASE 23 U/L (10-37); BILIRUBIN,TOTAL 0.7 MG/DL (0.1-1.0); BLOOD UREA NITROGEN 14 MG/DL (7-18); BUN/CREATININE RATIO 11.3 (5.4-32.0); CALCIUM 8.3 MG/DL (8.5-10.1); CHLORIDE 102 MMOL/L (99-107); CREATININE 1.24 MG/DL (0.60-1.10); GLUCOSE 95 MG/DL (70-104); LIPASE 238 U/L (73-393); PHOSPHORUS 2.9 MG/DL (2.3-4.5); POTASSIUM 3.6 MMOL/L (3.5-5.1); SODIUM 135 MMOL/L (135-145); TOTAL CARBON DIOXIDE 23.6 MMOL/L (24-32); TOTAL PROTEIN 7.7 G/DL (6.4-8.2); eGFR 59 ML/MIN
[2021-10-14] MEDS: thiamine 100mg tablet PO SCH (07:36)
[2021-10-14] MEDS: heparin, porcine 5000 units/ml vial SQ SCH (07:37)
[2021-10-14] MEDS: hydrALAZINE 20mg/ml inj. IV PRN (07:38)
[2021-10-14] MEDS ORDERED: multivitamins, therapeutics tablet PO SCH (08:00)
[2021-10-14] MEDS ORDERED: tamsulosin 0.4mg capsule PO SCH (08:00)
[2021-10-14] MEDS ORDERED: atorvastatin 20mg tablet PO SCH (08:00)
[2021-10-14] MEDS ORDERED: pantoprazole 40mg Tablet.DR PO SCH (08:00)
[2021-10-14] MEDS ORDERED: folic acid 1mg tablet PO SCH (08:00)
[2021-10-14] MEDS ORDERED: levoTHYROXINE 75mcg tablet PO SCH (08:00)
[2021-10-14] MEDS: K and/or MAG REPLACEMENT MC SCH (08:03)
[2021-10-14] MEDS: LORazepam 2 mg/ml vial IV PRN ×2 (11:00)
[2021-10-15] MEDS ORDERED: LORazepam 1 MG tablet PO PRN (10:50)
[2021-10-15] MEDS ORDERED: LORazepam 2 mg/ml vial IV PRN (10:50)
[2021-10-17] MEDS ORDERED: LORazepam 2 mg/ml vial IV PRN (10:50)
[2021-10-17] MEDS ORDERED: LORazepam 1 MG tablet PO PRN (10:50)
== END 2021-10-14 13:22 | disposition home or self-care (01) | DRG 243 ==
LOC: ER 23:57 → ED HOLD 10-13 03:31 → PCU 3S 10-13 22:40
PROVIDERS: ADMIT Internal Medicine; ATTEND Family Medicine
PROC: 4A02XM4 Measurement of Cardiac Total Activity, External Approach (ICD-10-PCS; principal; 2021-10-14)
PROC: 3E073KZ Introduction of Other Diagnostic Substance into Coronary Artery, Percutaneous Approach (ICD-10-PCS; 2021-10-14)
DX: K21.9 Gastro-esophageal reflux disease without esophagitis (principal); K85.90 Acute pancreatitis without necrosis or infection, unspecified; N17.9 Acute kidney failure, unspecified; I50.32 Chronic diastolic (congestive) heart failure; I13.0 Hypertensive heart and chronic kidney disease with heart failure and stage 1 through stage 4 chronic kidney disease, or unspecified chronic kidney disease; Z20.822 Contact with and (suspected) exposure to COVID-19; B19.20 Unspecified viral hepatitis C without hepatic coma; E03.9 Hypothyroidism, unspecified; E78.00 Pure hypercholesterolemia, unspecified; E78.5 Hyperlipidemia, unspecified; F10.239 Alcohol dependence with withdrawal, unspecified; G89.29 Other chronic pain; E87.6 Hypokalemia; F12.90 Cannabis use, unspecified, uncomplicated; J44.9 Chronic obstructive pulmonary disease, unspecified; N18.30 Chronic kidney disease, stage 3 unspecified; F15.10 Other stimulant abuse, uncomplicated; R00.0 Tachycardia, unspecified; R30.0 Dysuria; F17.210 Nicotine dependence, cigarettes, uncomplicated; I25.10 Atherosclerotic heart disease of native coronary artery without angina pectoris; M16.12 Unilateral primary osteoarthritis, left hip; N40.0 Benign prostatic hyperplasia without lower urinary tract symptoms; Z95.5 Presence of coronary angioplasty implant and graft; Z56.0 Unemployment, unspecified; I25.2 Old myocardial infarction; Z59.00 Homelessness unspecified; Z88.2 Allergy status to sulfonamides; Z88.8 Allergy status to other drugs, medicaments and biological substances; Z90.49 Acquired absence of other specified parts of digestive tract; Z99.3 Dependence on wheelchair; Z79.899 Other long term (current) drug therapy
CPT/HCPCS: 36415; 71045; 78452; 80048; 80053; 80076; 80305; 82150; 82948; 83605; 83690; 83880; 84100; 84484; 85025; 85610; 87040; 87081; 87635; 93005; 93017; 93306; 97161; 97530; 99285; A9500; C9803; G0378; J0360; J1644; J2060; J2270; J2405; J2785; J3480; J3490; J7030

== ENCOUNTER 2022-09-22 13:26 | Emergency (ER) | payer MEDICARE, MEDICAID ==
[~2022-09-22] VITALS: Ht 182.9 cm; Wt 68.0 kg
[~2022-09-22 13:26] MED LIST changes: -OMEP-50 PO; +OMEP20CA16 PO; +POTA8CAP20 PO
[2022-09-22 13:30] VITALS: BP 123/82
[2022-09-22 13:54] LABS: BASOPHILS # (AUTO) 0.1 X10'3 (0-0.2); EOSINOPHILS # (AUTO) 0.2 X10'3 (0-0.9); EOSINOPHILS % (AUTO) 1.8 % (0-6); HEMATOCRIT 38.8 % (42.0-52.0); HEMOGLOBIN 13.1 g/dl (14.0-17.9); LYMPHOCYTES # (AUTO) 1.5 X10'3 (1.1-4.8); LYMPHOCYTES % (AUTO) 16.9 % (21-51); MEAN CORPUSCULAR HEMOGLOBIN 32.8 PG (27.0-31.0); MEAN CORPUSCULAR HGB CONC 33.8 g/dL (33.0-36.5); MEAN CORPUSCULAR VOLUME 97.1 FL (78-98); MEAN PLATELET VOLUME 6.2 FL (7.4-10.4); MONOCYTES # (AUTO) 0.8 X10'3 (0-0.9); MONOCYTES % (AUTO) 8.9 % (2-12); NEUTROPHILS # (AUTO) 6.2 X10'3 (1.8-7.7); NEUTROPHILS % (AUTO) 71.4 % (42-75); PLATELET COUNT 430 X10'3 (140-440); RED BLOOD COUNT 3.99 X10'6 (4.70-6.10); RED CELL DISTRIBUTION WIDTH 13.5 % (11.5-14.5); WHITE BLOOD COUNT 8.7 X10'3 (4.5-11.0)
[2022-09-22 14:11] LABS: ALANINE AMINOTRANSFERASE 20 U/L (12-78); ALBUMIN 3.3 G/DL (3.4-5.0); ALBUMIN/GLOBULIN RATIO 0.6 (1.1-1.5); ALKALINE PHOSPHATASE 139 IU/L (46-116); ANION GAP 13 (8-16); ASPARTATE AMINO TRANSFERASE 20 U/L (10-37); BILIRUBIN,TOTAL 0.4 MG/DL (0.1-1.0); BLOOD UREA NITROGEN 33 MG/DL (7-18); BUN/CREATININE RATIO 19.2 (5.4-32.0); CALCIUM 9.3 MG/DL (8.5-10.1); CHLORIDE 89 MMOL/L (99-107); CREATININE 1.72 MG/DL (0.60-1.10); GLUCOSE 101 MG/DL (70-104); LIPASE 161 U/L (73-393); POTASSIUM 3.1 MMOL/L (3.5-5.1); SODIUM 122 MMOL/L (135-145); TOTAL CARBON DIOXIDE 20.5 MMOL/L (24-32); TOTAL PROTEIN 8.6 G/DL (6.4-8.2); eGFR 40 ML/MIN
== END 2022-09-22 22:29 | disposition left against medical advice (07) ==
LOC: ER 13:26
DX: M54.9 Dorsalgia, unspecified (principal); Z53.21 Procedure and treatment not carried out due to patient leaving prior to being seen by health care provider
CPT/HCPCS: 36415; 80053; 83690; 85025